=== PATIENT | male | born 1965 | race Caucasian/White ===

== ENCOUNTER 2018-05-08 06:29 | Inpatient (IN) ==
--- NOTE | 2018-05-08 06:31 | Emergency Department Note ---
ED Disposition Clinical Impression: CAP (community acquired pneumonia) Qualifiers: Laterality: right Lung location: lower lobe of lung Qualified Code(s): J18.1 - Lobar pneumonia, unspecified organism Disposition: Admitted As Inpatient Condition on Discharge: Fair Referrals: Provider,Referral, [Primary Care Provider] - - Critical Care Critical Care Time: No Attestation: On , the high probability of a clinically significant, sudden or life threatening deterioration of the following system(s) required my full and direct attention, intervention and personal management. The time I documented below is in addition to time spent performing reported procedures but includes the following listed in this critical care notation. Medical Decision Making - Micheal Inquiry Pt receiving controlled substance: No Vital Signs: 05/08/18 06:29 05/08/18 06:30 05/08/18 06:47 Temperature 101.7 F H 101.7 F H Temperature Source Oral Oral Oral Pulse Rate Pulse Rate [Right Radial] 111 H 111 H Respiratory Rate 24 24 Blood Pressure [Right Arm] 130/61 130/61 Blood Pressure Mean [Right Arm] 84 84 Blood Pressure Source [Right Arm] Blood Pressure Position [Right Arm] 02 Sat by Pulse Oximetry 88 L 88 L Oxygen Delivery Method Room Air Room Air Oxygen Flow Rate (LPM) 05/08/18 06:50 05/08/18 07:14 05/08/18 07:28 Temperature Temperature Source Pulse Rate 103 H Pulse Rate [Right Radial] 106 H Respiratory Rate 26 H 22 Blood Pressure [Right Arm] 104/73 L Blood Pressure Mean [Right Arm] 83 Blood Pressure Source [Right Arm] Blood Pressure Position [Right Arm] 02 Sat by Pulse Oximetry 92 L 92 L 93 L Oxygen Delivery Method Nasal Cannula Nasal Cannula Oxygen Flow Rate (LPM) 2 2 05/08/18 07:34 Temperature Temperature Source Pulse Rate Pulse Rate [Right Radial] 107 H Respiratory Rate 26 H Blood Pressure [Right Arm] 111/61 Blood Pressure Mean [Right Arm] 77 Blood Pressure Source [Right Arm] Automatic Cuff Blood Pressure Position [Right Arm] Sitting 02 Sat by Pulse Oximetry 91 L Oxygen Delivery Method Nasal Cannula Oxygen Flow Rate (LPM) - Lab Data Lab Results 05/08/18 06:35: WBC 14.1 H, RBC 4.41 L, Hgb 14.3, Hct 42.1, MCV 95.4 H, MCH 32.3 H, MCHC 33.9, RDW 13.0, Plt Count 272, MPV 7.4, Neut % (Auto) 88.1 H, Lymph % (Auto) 5.9 L, [place] % (Auto) 5.7, Eos % (Auto) 0.1, Baso % (Auto) 0.2, Neut # (Auto) 12.4 H, Lymph # (Auto) 0.8, [place]iken # (Auto) 0.8, Eos # (Auto) 0.0, Baso # (Auto) 0.0 05/08/18 06:35: Sodium 131 L, Potassium 4.0, Chloride 96 L, Carbon Dioxide 26, Anion Gap 13.0, BUN 21 H, Creatinine 1.00, Estimated Creat Clear 108, Estimated GFR 78, Est GFR ( Amer) 94, Glucose 144 H, Calcium 8.7, Total Bilirubin 1.2 H, AST 14 L, ALT 20, Alkaline Phosphatase 84, Troponin I < 0.02, Total Protein 7.6, Albumin 3.3 L, Globulin 4.3 H, Albumin/Globulin Ratio 0.8 L 05/08/18 06:38: Influenza Type A Ag Negative, Influenza Type B Ag Negative Result diagrams: 05/08/18 06:35 05/08/18 06:35 Orders (Tests/Meds): ED MEDICATIONS Generic Name Dose Route Start Last Admin Trade Name Freq PRN Reason Stop Dose Admin Albuterol/Ipratropium 3 ml 05/08/18 10:00 Duoneb 3ml Neb IH 06/07/18 09:59 QIDRT PAZ Sodium Chloride 1,000 mls @ 999 mls/hr 05/08/18 06:45 05/08/18 06:38 Sod Chlor 0.9% 1000ml Bag IV 05/08/18 07:45 999 mls/hr .Q1H1M PAZ Administration Ceftriaxone Sodium 1 gm/ 50 mls @ 100 mls/hr 05/08/18 07:00 05/08/18 06:51 Sodium Chloride IV 05/22/18 06:59 100 mls/hr Q24H PAZ Administration Protocol Azithromycin 500 mg/ Sodium 250 mls @ 250 mls/hr 05/08/18 07:00 05/08/18 06:52 Chloride IV 05/22/18 06:59 250 mls/hr Q24H PAZ Administration Protocol Methylprednisolone Sodium Succinate 80 mg 05/08/18 07:00 Solu-Medrol 125mg/2ml Vial IV 06/07/18 06:59 Q8H APZ Sodium Chloride 10 ml 05/08/18 06:33 Saline Flush 10ml Syringe IV 06/07/18 06:32 NEEDED PRN Maintain IV Site Sodium Chloride 3 ml 05/08/18 06:35 Sodium Chloride 3% 15ml Neb IH 06/07/18 06:34 ONCE PRN INDUCE SPUTUM COLLECTION Discontinued Medications Generic Name Dose Route Start Last Admin Trade Name Freq PRN Reason Stop Dose Admin Acetaminophen 1,000 mg 05/08/18 06:34 05/08/18 06:38 Tylenol 500mg Tablet PO 05/08/18 06:35 1,000 mg ONCE ONE Administration Ketorolac Tromethamine 30 mg 05/08/18 07:29 Toradol 30mg/Ml Vial IV 05/08/18 07:30 ONCE ONE ORDERS Category Date Time Status Complete Blood Count Auto Diff Stat Lab 05/08/18 06:35 Results Lactic Acid Stat Lab 05/08/18 06:35 Received Blood Culture Stat Micro 05/08/18 06:35 Received Sputum Culture & Gram Stain Stat Micro 05/08/18 06:35 Ordered - Radiology Data #1 Image(s): Chest Image Reviewed: Yes I reviewed the patient's radiology image, Yes I have reviewed radiologist's interpretation RLL pneumonia - ECG Data Tracing #1 EKG interpreted by Jace Montero MD: Rhythm: sinus tachycardia Rate: 111 [place]: normal Ectopy: none Conduction: normal ST Segment Changes: none T Wave Changes: none Q Waves: none No evidence of acute ischemia or injury - Physician Consults Physician Consulted: Monica Marte Time: 07:37 Reason -: Admission Comment/Response: Agrees to admit the patient to the hospital. We discussed the patient's clinical information, including history, exam, laboratory and radiolo gy results and ED course. Per hospital procedure, I will write temporary bridge inpatient orders on the patient. Specific orders requested by the admitting physician: Continue current treatment General Adult HPI - General Stated complaint: chest pain Time Seen by Provider: 05/08/18 06:35 - History of Present Illness HPI narrative: Brought in by ambulance. Sick for 3 days. Nonproductive cough, rhinorrhea, subjective fever, chest pain, shortness of breath. Has COPD. Quit smoking 1 year ago. Has had pneumonia in the past. Did not have a flu shot this year to his knowledge. States his chest pain is under his ribs bilaterally. Primary care provider is Dr. Marte. - Related Data Home Medications Medication Instructions Recorded Confirmed No Known Home Medications 05/08/18 05/08/18 Allergies Allergy/AdvReac Type Severity Reaction Status Date / Time No Known Allergies Allergy Verified 05/08/18 06:33 [facility] History - Hepatitis A Screen Attestation statement:: This patient has been screened for Hepatitis A risk factors. I have reviewed the patient's past medical history: Yes - Social History Smoking Status: Current every day smoker Tobacco Type: cigarettes Alcohol Intake: never ROS Obtained: Yes All systems reviewed & no additional complaints - Constitutional Constitutional: Reports fever(s) - ENT Ears, Nose, Mouth, and Throat: Reports nasal discharge, Denies sore throat - Cardiovascular Cardiovascular: Reports chest pain Physical Exam - General General appearance: alert Comment: Ill appearing. Very frequent hacking cough. - Head Head exam: atraumatic, normocephalic - Eye Eye exam: Present: normal appearance, PERRL, EOMI - ENT ENT exam: Present: mucous membranes dry - Neck Neck exam: Present: normal inspection, trachea midline. Absent: lymphadenopathy - Chest Chest inspection: Present: normal inspection, symmetric chest wall rise - Respiratory Respiratory exam: Present: other (Rhonchi) - Cardiovascular Cardiovascular exam: Present: normal rhythm, tachycardia, normal heart sounds - Abdominal Exam Abdominal exam: Present: soft. Absent: distention, tenderness - Extremities Exam Extremities exam: Present: normal inspection - Neurological Exam Neurological exam: Present: alert, oriented X3 - Psychiatric Psychiatric exam: Present: normal affect, normal mood - Skin Skin exam: Present: warm, dry
[2018-05-08 07:08] LABS: Basophils % 0.2 % (0.1-2.0); Eosinophils % 0.1 % (0.1-12.0); Hematocrit 42.1 % (42.0-52.0); Hemoglobin 14.3 g/dL (14.1-18.0); Lymphocytes # 0.8 K/mm3 (0.7-4.5); Lymphocytes % 5.9 % (10-50); Mean Corpuscular HGB Conc 33.9 g/dL (31.8-35.4); Mean Corpuscular Hemoglobin 32.3 pg (27.0-31.2); Mean Corpuscular Volume 95.4 fl (80-94); Mean Platelet Volume 7.4 fl (7.4-10.4); Monocytes # 0.8 K/mm3 (0.1-1.0); Monocytes % 5.7 % (1.7-9.3); Neutrophils # 12.4 K/mm3 (1.8-7.8); Neutrophils % 88.1 % (37.0-80.0); Platelet Count 272 K/mm3 (142-424); Red Blood Count 4.41 M/mm3 (4.60-6.20); White Blood Count 14.1 K/mm3 (4.8-10.8)
[2018-05-08 07:16] LABS: Alanine Aminotransferase 20 U/L (12-78); Albumin Level 3.3 gm/dL (3.4-5.0); Albumin/Globulin Ratio 0.8 (1.1-1.8); Alkaline Phosphatase 84 U/L (46-116); Aspartate Amino Transferase 14 U/L (15-37); Bilirubin,Total 1.2 mg/dL (0.2-1.0); Blood Urea Nitrogen 21 mg/dL (7-18); Calcium 8.7 mg/dL (8.5-10.1); Carbon Dioxide 26 mmol/L (21.0-32.0); Chloride 96 mmol/L (98-107); Globulin 4.3 gm/dl (1.3-3.2); Glucose 144 mg/dL (74-106); Sodium 131 mmol/L (136-145); Total Protein,Serum 7.6 gm/dL (6.4-8.2)
[2018-05-08 07:42] LABS: Lymphocytes % 6 % (10-50); Monocytes % 2 % (2-9); Neutrophils % 89 % (42-76); Total Cells Counted 100
--- NOTE | 2018-05-08 08:27 | Pharmacy Consult Notes ---
[facility] Pharmacy VTE Monitoring - Patient Demographics Admission date: 05/08/18 Report Date: 05/08/18 Allergies/Adverse Reactions: Patient Allergies No Known Allergies Allergy (Verified 05/08/18 06:33) Height: 1.85 m Weight: 90.718 kg Patient Problems: Current Active Problems CAP (community acquired pneumonia) (Acute) - VTE Risk Labs: VTE Related Lab Results Hgb 14.3 g/dL (14.1-18.0) 05/08/18 06:35 Hct 42.1 % (42.0-52.0) 05/08/18 06:35 Plt Count 272 K/mm3 (142-424) 05/08/18 06:35 BUN 21 mg/dL (7-18) H 05/08/18 06:35 Creatinine 1.00 mg/dL (0.70-1.30) 05/08/18 06:35 Estimated Creat Clear 108 mL/min (50-200) 05/08/18 06:35 - Prophylaxis VTE Prophylaxis Ordered?: Yes Types of VTE Prophylaxis: TEDS Knee High Location of Applied Device: Bilateral Lower Extremeties - VTE Diagnosis Confirmed Treatment or plan recommended: Continue Current Treatment
--- NOTE | 2018-05-08 12:58 | History & Physical Report ---
*Admission Date: 05/08/18 <Karly Linares 05/08/18 13:01> *Chief complaint: shortness of breath, fever, cough <Karly Linares 05/08/18 13:01> *History of present illness: Mr. Rosario is a 52yo male with a history of only COPD and tobacco use. He states approximately 3 days ago he began getting short of breath and wheezing. He states he is felt extremely weak and has been running a fever. The ambulance brought him to the emergency room today where he was found to have a right lower lobe pneumonia. He was admitted and started on IV antibiotics, nebs, and steroids. <Karly Linares 05/08/18 13:01> [facility] History Medical History: Reports:: Chronic Obstructive Pulmonary Disease (COPD) Denies:: Cancer, Diabetes Mellitus Type 1, Diabetes Mellitus Type 2, MRSA <Karly Linares 05/08/18 13:01> *Have you ever received a pneumonia vaccine?: No <Karly Linares 05/08/18 13:01> *Have you received a flu vaccine this season?: No <Karly Linares 05/08/18 13:01> Laterality Cases: Left: Arthroscopy Knee <Karly Linares 05/08/18 13:01> Amputation: No <Karly Linares 05/08/18 13:01> - *Social History Educational Level: Attended College <Karly Linares 05/08/18 13:01> Smoking Status: Former smoker <Karly Linares 05/08/18 13:01> Tobacco Type: cigarettes <Karly Linares 05/08/18 13:01> Alcohol Intake: never <Karly Linares 05/08/18 13:01> Alcohol Intake Frequency:: a few times a week <Karly Linares 05/08/18 13:01> *Occupational Status:: disabled <Karly Linares 05/08/18 13:01> Housing: other <Karly Linares 05/08/18 13:01> Household Members: spouse <Karly Linares 05/08/18 13:01> *Travel in the last 8 weeks: None <Karly Linares 05/08/18 13:01> - Psychiatric History Expresses thoughts of harming self/others: None <Karly Linares 05/08/18 13:01> Suicide Plan Description: No Plan <Karly Linares 05/08/18 13:01> Family Hx:: No significant family history, Other (COPD) <Karly Linares 05/08/18 13:01> Review of Systems - Constitutional Reports body ache(s), Reports chills, Reports fatigue, Reports fever(s), Reports weakness <Karly Linares 05/08/18 13:01> - Eyes Denies blurry vision, Denies double vision <Karly Linares 05/08/18 13:01> - ENT Reports nasal congestion, Denies sore throat <Karly Linares 05/08/18 13:01> - *Cardiovascular Reports chest pain, Reports shortness of breath <Karly Linares 05/08/18 13:01> - *Respiratory Reports chest congestion, Reports cough, Reports shortness of breath, Reports wheezing <Karly Linares 05/08/18 13:01> - *Gastrointestinal Denies abdominal pain, Denies loose stools, Denies nausea, Denies vomiting [facility]> - *Genitourinary Denies difficulty urinating, Denies painful urination <Karly Linares 13:01> - *Musculoskeletal Denies joint pain <Karly Linares 05/08/18 13:01> - *Neurologic Reports headache(s), Reports dizziness, Reports weakness <Karly Linares 05/08/18 13:01> Meds Home Medications Medication Instructions Recorded Confirmed Type Albuterol Sulfate [Albuterol HFA 1 - 2 puffs IH Q4-6H PRN 05/08/18 05/08/18 History Inhaler] <Toni Marte - 05/08/18 17:45> Allergies Allergy/AdvReac Type Severity Reaction Status Date / Time No Known Allergies Allergy Verified 05/08/18 06:33 <Toni Marte - 05/08/18 17:45> Exam Vital signs and Labs for Last 24 Hours: Temp Pulse Resp BP Pulse Ox 98.0 F 87 20 116/67 94 L 03/21/19 15:49 05/08/18 15:49 05/08/18 15:49 05/08/18 15:49 05/08/18 15:49 Laboratory Results - last 24 hr 05/08/18 06:35: WBC 14.1 H, RBC 4.41 L, Hgb 14.3, Hct 42.1, MCV 95.4 H, MCH 32.3 H, MCHC 33.9, RDW 13.0, Plt Count 272, MPV 7.4, Neut % (Auto) 88.1 H, Lymph % (Auto) 5.9 L, Baker % (Auto) 5.7, Eos % (Auto) 0.1, Baso % (Auto) 0.2, Neut # (Auto) 12.4 H, Lymph # (Auto) 0.8, Baker # (Auto) 0.8, Eos # (Auto) 0.0, Baso # (Auto) 0.0, Total Counted 100, Neutrophils % (Manual) 89 H, Band Neutrophils % 3.0, Lymphocytes % (Manual) 6 L, Monocytes % (Manual) 2, Platelet Estimate Normal 05/08/18 06:35: Sodium 131 L, Potassium 4.0, Chloride 96 L, Carbon Dioxide 26, Anion Gap 13.0, BUN 21 H, Creatinine 1.00, Estimated Creat Clear 108, Estimated GFR 78, Est GFR ( Amer) 94, Glucose 144 H, Calcium 8.7, Total Bilirubin 1.2 H, AST 14 L, ALT 20, Alkaline Phosphatase 84, Troponin I < 0.02, Total Protein 7.6, Albumin 3.3 L, Globulin 4.3 H, Albumin/Globulin Ratio 0.8 L 05/08/18 06:35: Lactate 0.8 05/08/18 06:38: Influenza Type A Ag Negative, Influenza Type B Ag Negative <Toni Marte - 05/08/18 17:45> Temp Pulse Resp BP Pulse Ox 98.2 F 92 H 20 110/53 L 95 05/08/18 12:00 05/08/18 12:00 05/08/18 12:00 05/08/18 12:00 05/08/18 12:00 Laboratory Results - last 24 hr 05/08/18 06:35: WBC 14.1 H, RBC 4.41 L, Hgb 14.3, Hct 42.1, MCV 95.4 H, MCH 32.3 H, MCHC 33.9, RDW 13.0, Plt Count 272, MPV 7.4, Neut % (Auto) 88.1 H, Lymph % (Auto) 5.9 L, Baker % (Auto) 5.7, Eos % (Auto) 0.1, Baso % (Auto) 0.2, Neut # (Auto) 12.4 H, Lymph # (Auto) 0.8, Baker # (Auto) 0.8, Eos # (Auto) 0.0, Baso # (Auto) 0.0, Total Counted 100, Neutrophils % (Manual) 89 H, Band Neutrophils % 3.0, Lymphocytes % (Manual) 6 L, Monocytes % (Manual) 2, Platelet Estimate Normal 05/08/18 06:35: Sodium 131 L, Potassium 4.0, Chloride 96 L, Carbon Dioxide 26, Anion Gap 13.0, BUN 21 H, Creatinine 1.00, Estimated Creat Clear 108, Estimated GFR 78, Est GFR ( Amer) 94, Glucose 144 H, Calcium 8.7, Total Bilirubin 1.2 H, AST 14 L, ALT 20, Alkaline Phosphatase 84, Troponin I < 0.02, Total Protein 7.6, Albumin 3.3 L, Globulin 4.3 H, Albumin/Globulin Ratio 0.8 L 05/08/18 06:35: Lactate 0.8 05/08/18 06:38: Influenza Type A Ag Negative, Influenza Type B Ag Negative <Karly Linares - 05/08/18 13:01> I & O for Last 24 hours: Intake & Output 05/06/18 05/07/18 05/08/18 05/09/18 11:59 11:59 11:59 11:59 Intake Total 855 / 855 Balance 855 / 855 Weight 200 lb 9 oz <Toni Marte - 05/08/18 17:45> Intake & Output 05/06/18 05/07/18 05/08/18 05/09/18 11:59 11:59 11:59 11:59 Weight 200 lb 9 oz <Karly Linares - 05/08/18 13:01> - Constitutional Comments: Does not appear to feel well <Karly Linares 05/08/18 13:01> - *Routine HEENT Exam Head: Present: normocephalic <Karly Linares 05/08/18 13:01> Eye: Present: EOMI, PERRL <Karly Linares 05/08/18 13:01> ENT: Present: mucous membranes dry <Karly Linares 05/08/18 13:01> - *Routine Neck Exam Present: supple. Absent: lymphadenopathy <Karly Linares 05/08/18 13:01> - *Routine Respiratory Exam Present: rhonchi, wheezes, crackles (faint in the right base) <Karly Linares 05/08/18 13:01> - *Routine Cardiovascular Exam Present: RRR <Karly Linares 05/08/18 13:01> - *Routine Abdominal Exam Present: soft, normoactive bowel sounds. Absent: tenderness <Karly Linares 05/08/18 13:01> - *Routine Extremities Exam Absent: cyanosis, clubbing, edema <Karly Linares 05/08/18 13:01> - *Routine Skin Exam Present: warm. Absent: rash <Karly Linares 05/08/18 13:01> - *Routine Neurological Exam Present: alert, oriented X3 <Karly Linares 05/08/18 13:01> H&P: Result - Impressions CXR - Right lower lobe pneumonia. <Karly Linares 05/08/18 13:01> Assessment and Plan (1) CAP (community acquired pneumonia) Current visit: Yes Status: Acute Qualifiers: Laterality: right Lung location: lower lobe of lung Qualified Code(s): J18.1 - Lobar pneumonia, unspecified organism Category: Medical Code(s): J18.9 - Pneumonia, unspecified organism (2) COPD (chronic obstructive pulmonary disease) Current visit: Yes Status: Chronic Category: Medical Code(s): J44.9 - Chronic obstructive pulmonary disease, unspecified <Karly Linares 05/08/18 12:55> (1) CAP (community acquired pneumonia) Current visit: Yes Status: Acute Qualifiers: Laterality: right Lung location: lower lobe of lung Qualified Code(s): J18.1 - Lobar pneumonia, unspecified organism Category: Medical Code(s): J18.9 - Pneumonia, unspecified organism (2) COPD (chronic obstructive pulmonary disease) Current visit: Yes Status: Chronic Category: Medical Code(s): J44.9 - Chronic obstructive pulmonary disease, unspecified <Toni Marte - 05/08/18 17:45> - Assessment and plan all Dx Assessment and Plan for all problems:: Patient seen and examined. Concur with assessmant and plan as outlined above. <Toni Marte - 05/08/18 17:45> Will continue abx, nebs, and steroids. Will await sputum cx results. <Karly Linares - 05/08/18 13:01>
--- NOTE | 2018-05-09 08:35 | Progress Note ---
<Karly Linares - Last Filed: 05/09/18 08:31> Internal Medicine - PN: Subj *Date: 05/09/18 *Time: 08:32 Interval history: Patient states he is feeling a little bit better today. He has less shortness of breath and less wheezing. He is still coughing but is unable to cough up any sputum. He states his chest pain has improved and he was able to sleep and tolerated diet. Exam Vital signs and Labs for Last 24 Hours: Temp Pulse Resp BP Pulse Ox 97.5 F L 84 20 105/62 L 96 05/09/18 04:00 05/09/18 06:39 05/09/18 04:00 05/09/18 04:00 05/09/18 07:32 I & O for Last 24 hours: Intake & Output 05/06/18 05/07/18 05/08/18 05/09/18 11:59 11:59 11:59 11:59 Intake Total 885 / 885 Balance 885 / 885 Weight 200 lb 9 oz - Constitutional no acute distress - *Routine Respiratory Exam Present: rhonchi, wheezes - *Routine Cardiovascular Exam Present: RRR - *Routine Abdominal Exam Present: soft, normoactive bowel sounds. Absent: tenderness - *Routine Extremities Exam Absent: cyanosis, clubbing, edema Assessment and Plan (1) CAP (community acquired pneumonia) Current visit: Yes Status: Acute Qualifiers: Laterality: right Lung location: lower lobe of lung Qualified Code(s): J18.1 - Lobar pneumonia, unspecified organism Category: Medical Code(s): J18.9 - Pneumonia, unspecified organism (2) COPD (chronic obstructive pulmonary disease) Current visit: Yes Status: Chronic Category: Medical Code(s): J44.9 - Chronic obstructive pulmonary disease, unspecified (3) Hyponatremia Current visit: Yes Status: Acute Category: Medical Code(s): E87.1 - Hypo- osmolality and hyponatremia (4) Hyperbilirubinemia Current visit: Yes Status: Acute Category: Medical Code(s): E80.6 - Other disorders of bilirubin metabolism - Assessment and plan all Dx Assessment and Plan for all problems:: Patient symptoms are improving. Will continue antibiotics. Will recheck labs this morning. <Toni Marte - Last Filed: 05/09/18 09:19> Exam Vital signs and Labs for Last 24 Hours: Temp Pulse Resp BP Pulse Ox 97.7 F 98 H 18 128/72 90 L 05/09/18 08:00 05/09/18 08:00 05/09/18 08:00 05/09/18 08:00 05/09/18 08:00 I & O for Last 24 hours: Intake & Output 05/06/18 05/07/18 05/08/18 05/09/18 11:59 11:59 11:59 11:59 Intake Total 1365 / 1365 Balance 1365 / 1365 Weight 200 lb 9 oz Assessment and Plan (1) CAP (community acquired pneumonia) Current visit: Yes Status: Acute Qualifiers: Laterality: right Lung location: lower lobe of lung Qualified Code(s): J18.1 - Lobar pneumonia, unspecified organism Category: Medical Code(s): J18.9 - Pneumonia, unspecified organism (2) COPD (chronic obstructive pulmonary disease) Current visit: Yes Status: Chronic Category: Medical Code(s): J44.9 - Chronic obstructive pulmonary disease, unspecified (3) Hyponatremia Current visit: Yes Status: Acute Category: Medical Code(s): E87.1 - Hypo- osmolality and hyponatremia (4) Hyperbilirubinemia Current visit: Yes Status: Acute Category: Medical Code(s): E80.6 - Other disorders of bilirubin metabolism - Assessment and plan all Dx Assessment and Plan for all problems:: Patient seen and examined. Concur with assessment and plan.
[2018-05-09 09:32] LABS: Albumin Level 2.6 gm/dL (3.4-5.0); Albumin/Globulin Ratio 0.6 (1.1-1.8); Basophils % 0.1 % (0.1-2.0); Bilirubin,Total 0.3 mg/dL (0.2-1.0); Calcium 8.6 mg/dL (8.5-10.1); Globulin 4.3 gm/dl (1.3-3.2); Hematocrit 38.8 % (42.0-52.0); Hemoglobin 12.5 g/dL (14.1-18.0); Lymphocytes # 0.5 K/mm3 (0.7-4.5); Lymphocytes % 2.9 % (10-50); Mean Corpuscular HGB Conc 32.3 g/dL (31.8-35.4); Mean Corpuscular Hemoglobin 31.3 pg (27.0-31.2); Mean Corpuscular Volume 96.9 fl (80-94); Mean Platelet Volume 7.7 fl (7.4-10.4); Monocytes # 0.4 K/mm3 (0.1-1.0); Monocytes % 2.2 % (1.7-9.3); Neutrophils # 15.1 K/mm3 (1.8-7.8); Neutrophils % 94.8 % (37.0-80.0); Platelet Count 253 K/mm3 (142-424); Red Blood Count 4.01 M/mm3 (4.60-6.20); Red Cell Distribution Width 12.7 % (11.5-17.5); Total Protein,Serum 6.9 gm/dL (6.4-8.2); White Blood Count 15.9 K/mm3 (4.8-10.8)
[2018-05-09 10:55] LABS: Lymphocytes % 2 % (10-50); Neutrophils % 79 % (42-76); RBC Morphology Normal; Total Cells Counted 100
--- NOTE | 2018-05-10 08:57 | Progress Note ---
Internal Medicine - PN: Subj Interval history: He rested well last night. Shortness of breath is much improved. He still has a productive cough. He has been tolerating activity in the room. 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 Exam Vital signs and Labs for Last 24 Hours: Temp Pulse Resp BP Pulse Ox 97.8 F 109 H 18 135/67 90 L 05/10/18 07:53 05/10/18 07:53 05/10/18 07:53 05/10/18 07:53 05/10/18 07:53 Laboratory Results - last 24 hr 05/09/18 09:00: WBC 15.9 H, RBC 4.01 L, Hgb 12.5 L, Hct 38.8 L, MCV 96.9 H, MCH 31.3 H, MCHC 32.3, RDW 12.7, Plt Count 253, MPV 7.7, Neut % (Auto) 94.8 H, Lymph % (Auto) 2.9 L, [place] % (Auto) 2.2, Eos % (Auto) 0.0 L, Baso % (Auto) 0.1, Neut # (Auto) 15.1 H, Lymph # (Auto) 0.5 L, [place] # (Auto) 0.4, Eos # (Auto) 0.0, Baso # (Auto) 0.0, Total Counted 100, Neutrophils % (Manual) 79 H, Band Neutrophils % 19.0 H, Lymphocytes % (Manual) 2 L, Platelet Estimate Normal, RBC Morphology Normal 05/09/18 09:00: Sodium 139, Potassium 4.0, Chloride 105, Carbon Dioxide 25, Anion Gap 13.0, BUN 20 H, Creatinine 0.84, Estimated Creat Clear 129, Estimated GFR 95, Est GFR ( Amer) 115 D, Glucose 300 H, Calcium 8.6, Total Bilirubin 0.3, AST 10 L D, ALT 20, Alkaline Phosphatase 85, Total Protein 6.9, Albumin 2.6 L D, Globulin 4.3 H, Albumin/Globulin Ratio 0.6 L I & O for Last 24 hours: Intake & Output 05/07/18 05/08/18 05/09/18 05/10/18 11:59 11:59 11:59 11:59 Intake Total 1365 / 1365 1080 / 1080 Output Total 200 / 200 Balance 1365 / 1365 880 / 880 Weight 200 lb 9 oz Microbiology Reports for the Last 24 Hours: Microbiology 05/09/18 20:00 Sputum - Expectorated Sputum Gram Stain - Final 05/09/18 20:00 Sputum - Expectorated Sputum Sputum Culture - Preliminary 05/08/18 06:35 Blood Blood Culture - Preliminary NO GROWTH AFTER 48 HOURS 05/08/18 06:35 Blood Blood Culture - Preliminary NO GROWTH AFTER 48 HOURS Narrative: He appears in no distress. There is some coarse rales in the right lung. No wheezes. Heart is regular with no murmurs. Extremities no edema. Assessment and Plan (1) CAP (community acquired pneumonia) Current visit: Yes Status: Acute Qualifiers: Laterality: right Lung location: lower lobe of lung Qualified Code(s): J18.1 - Lobar pneumonia, unspecified organism Category: Medical Code(s): J18.9 - Pneumonia, unspecified organism (2) COPD (chronic obstructive pulmonary disease) Current visit: Yes Status: Chronic Category: Medical Code(s): J44.9 - Chronic obstructive pulmonary disease, unspecified (3) Hyponatremia Current visit: Yes Status: Acute Category: Medical Code(s): E87.1 - Hypo- osmolality and hyponatremia - Assessment and plan all Dx Assessment and Plan for all problems:: He is insistent on going home as 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 Clinically he is much improved but I have advised that he still needs to take it easy for a few days. He will be discharged home on oral antibiotics and steroids. He will follow-up in office in 3 days for recheck.
--- NOTE | 2018-05-12 11:27 | Discharge Summary ---
General - General Admission date:: 05/08/18 Discharge date: 05/10/18 HPI HPI: Mr. Rosario is a 52yo male with a history of only COPD and tobacco use. He states approximately 3 days ago he began getting short of breath and wheezing. He states he has felt extremely weak and has been running a fever. The ambulance brought him to the emergency room today where he was found to have a right lower lobe pneumonia. He was admitted and started on IV antibiotics, nebs, and steroids. Hospital Course Hospital Course: The patient's chest x-ray showed a right lower lobe pneumonia. He was started on antibiotics, nebs, and steroids. His symptoms did improve and he began feeling less short of breath. He had less wheezing as well. His chest pain improved and he was able to sleep and tolerated a diet. 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 His white blood cell count did elevate but this was felt to be due to steroids. His electrolytes improved. Clinically, he was much improved and Dr. Marte advised that he needed to take it easy for a few days. He was stable to be discharged home on oral antibiotics and steroids and will follow-up in the office of [facility] in 3 days for a recheck. Of note, his sputum showed normal respiratory amber. Objective Vital signs: Temp Pulse Resp BP Pulse Ox 97.8 F 109 H 18 135/67 90 L 05/10/18 07:53 05/10/18 07:53 05/10/18 07:53 05/10/18 07:53 05/10/18 07:53 Narrative: - Constitutional Comments: Does not appear to feel well - *Routine HEENT Exam Head: Present: normocephalic Eye: Present: EOMI, PERRL ENT: Present: mucous membranes dry - *Routine Neck Exam Present: supple. Absent: lymphadenopathy - *Routine Respiratory Exam Present: rhonchi, wheezes, crackles (faint in the right base) - *Routine Cardiovascular Exam Present: RRR - *Routine Abdominal Exam Present: soft, normoactive bowel sounds. Absent: tenderness - *Routine Extremities Exam Absent: cyanosis, clubbing, edema - *Routine Skin Exam Present: warm. Absent: rash - *Routine Neurological Exam Present: alert, oriented X3 Results Labs on day of discharge: Preliminary micro results at discharge 05/08/18 06:35 Blood Culture - Preliminary Blood NO GROWTH AFTER 48 HOURS 05/08/18 06:35 Blood Culture - Preliminary Blood NO GROWTH AFTER 48 HOURS DS: Diagnosis - Discharge Diagnosis (1) CAP (community acquired pneumonia) Status: Acute (2) COPD (chronic obstructive pulmonary disease) Status: Chronic (3) Hyponatremia Status: Acute Discharge Plan - Patient Discharge Instructions ACTIVITY: Limited activity DIET: continue same diet Patient Instructions: DI for Chronic Obstructive Pulmonary Disease, DI for Pneumonia -- Adult - Follow up Plan Follow up with: Toni Marte MD [Staff Physician] - 05/13/18 Disposition: Home, Self-Jail Medications: Home Medications Medication Instructions Recorded Confirmed Type Albuterol Sulfate [Albuterol HFA 1 - 2 puffs IH Q4-6H PRN #1 05/10/18 Rx Inhaler] hfa.aer.ad Azithromycin [Zithromax 500mg Tab] 500 mg PO DAILY #3 tab 05/10/18 Rx Sildenafil Citrate [Sildenafil] 20 mg PO DIRECTED #20 tab 05/10/18 Rx cefUROXime axetil [Ceftin 500mg 500 mg PO BID #14 tab 05/10/18 Rx Tab (GEQ)] predniSONE [Prednisone 5mg Tab 5 mg PO UD DOSE PK #1 pack 05/10/18 Rx Dose-Pack] Prescriptions/Medication Reconciliation: New Azithromycin [Zithromax 500mg Tab] 500 mg PO DAILY #3 tab cefUROXime axetil [Ceftin 500mg Tab (GEQ)] 500 mg PO BID #14 tab Sildenafil Citrate [Sildenafil] 20 mg PO DIRECTED #20 tab predniSONE [Prednisone 5mg Tab Dose-Pack] 5 mg PO UD DOSE PK #1 pack Continue Albuterol Sulfate [Albuterol HFA Inhaler] 1 - 2 puffs IH Q4-6H PRN #1 hfa.aer.ad PRN Reason: Shortness Of Breath Or Wheezing
== END 2018-05-10 10:15 | disposition home or self-care (01) | DRG 194 ==
LOC: ER 06:29 → 2ND 07:42
PROVIDERS: ADMIT Family Medicine; ATTEND Family Medicine
CPT/HCPCS: 36415; 71010; 71045; 80053; 83605; 84484; 85007; 85025; 87040; 87070; 87205; 87275; 87276; 93005; 94640; 94761; 96365; 96367; 96375; 99285; J0456

== ENCOUNTER → 2019-03-17 08:18 | Outpatient (CLI) | payer OTHER, SELFPAY ==
[2019-03-17 08:48] LABS: Hemoglobin A1C 5.5 % (0.0-7.0)
[2019-03-17 11:49] LABS: Alanine Aminotransferase 431 U/L (12-78); Albumin Level 3.5 gm/dL (3.4-5.0); Alkaline Phosphatase 108 U/L (46-116); Anion Gap 13.7 mEq/L (5-15); Aspartate Amino Transferase 136 U/L (15-37); Bilirubin,Total 0.6 mg/dL (0.2-1.0); Blood Urea Nitrogen 21 mg/dL (7-18); Calcium 8.4 mg/dL (8.5-10.1); Carbon Dioxide 28 mmol/L (21.0-32.0); Chloride 106 mmol/L (98-107); Chol/HDL Ratio 2.1 (1-3.5); Cholesterol 149 mg/dL (140-200); Creatinine,Serum 0.94 mg/dL (0.70-1.30); Estimated Glomerular Filt Rate 83 ml/min (>60); GFR (African American) 101 ML/MIN (>60); Globulin 3.4 gm/dl (1.3-3.2); Glucose 99 mg/dL (74-106); HDL Cholesterol 70 mg/dL (27-67); LDL Cholesterol 71 mg/dL (0-130); Potassium 4.7 mmoL/L (3.5-5.1); Prostate Specific Ag Screen 0.6 ng/mL (0.0-4.0); Sodium 143 mmol/L (136-145); Total Protein,Serum 6.9 gm/dL (6.4-8.2); Triglycerides 38 mg/dL (30-200); VLDL Cholesterol 8 mg/dL (0-40)
== END ==
PROVIDERS: Visit Provider Family Medicine
DX: R35.8 Other polyuria (principal); Z12.5 Encounter for screening for malignant neoplasm of prostate
CPT/HCPCS: 36415; 80053; 80061; 83036; G0103

== ENCOUNTER → 2019-03-27 07:38 | Outpatient (CLI) | payer OTHER, SELFPAY ==
--- NOTE | 2019-03-27 07:58 | US_ITS ---
PROCEDURE: US ABDOMEN LIMITED CLINICAL INDICATION: ELEVATED LIVER ENZYMES COMPARISON: CTAC CTA-CHEST from 12/30/2016 FINDINGS: PANCREAS: Pancreas is not demonstrated due to overlying bowel gas. LIVER: No focal liver lesions demonstrated. Homogeneous echogenicity. No intrahepatic biliary ductal dilatation evident. There is appropriate direction of blood flow within a non dilated portal vein RIGHT KIDNEY: Unremarkable. Normal size and echogenicity. No hydronephrosis GALLBLADDER: There is adenomyomatosis of the gallbladder with scattered small foci of increased echogenicity with comet tail artifact. There is mild gallbladder wall thickening at 4 mm. No pericholecystic fluid. No shadowing stones. Common bile duct is normal at 4 mm. IMPRESSION: The adenomyomatosis of the gallbladder with mild gallbladder wall thickening. No shadowing stones apparent Pancreas is not well delineated and may be better evaluated with CT if clinically desired. Dictated by: Rodney Shaikh MD 03/27/2019 14:23 Electronically signed by Rodney Shaikh MD in [place] 03/27/2019 14:23
== END ==
PROVIDERS: PCP Family Medicine; Visit Provider Family Medicine
DX: R74.8 Abnormal levels of other serum enzymes (principal)
CPT/HCPCS: 76705

== ENCOUNTER → 2020-03-30 07:15 | Outpatient (CLI) | payer OTHER, SELFPAY ==
[2020-03-30 08:08] LABS: Chloride 102 mmol/L (98-107)
[2020-03-30 08:09] LABS: Potassium 4.4 mmoL/L (3.5-5.1); Sodium 140 mmol/L (136-145)
[2020-03-30 08:11] LABS: Alanine Aminotransferase 53 U/L (12-78); Albumin Level 4.4 g/dl (3.5-5.0); Albumin/Globulin Ratio 1.2 (1.1-1.8); Alkaline Phosphatase 104 U/L (38-126); Anion Gap 9.4 mEq/L (5-15); Aspartate Amino Transferase 36 U/L (17-59); Bilirubin,Total 0.6 mg/dl (0.2-1.3); Blood Urea Nitrogen 16 mg/dl (9-20); Carbon Dioxide 33 mmol/L (22.0-30.0); Estimated Glomerular Filt Rate 77 ml/min (>60); GFR (African American) 94 ML/MIN (>60); Globulin 3.7 g/dL (1.3-3.2); Total Protein,Serum 8.1 g/dl (6.3-8.2)
[2020-03-30 08:12] LABS: Calcium 9.8 mg/dl (8.4-10.2); Chol/HDL Ratio 2.2 (1-3.5); Cholesterol 148 mg/dl (140-200); Glucose 136 mg/dl (74-100); HDL Cholesterol 66 mg/dl (40-60); Triglycerides 123 mg/dl (30-150); VLDL Cholesterol 25 mg/dL (0-40)
[2020-03-30 08:23] LABS: Direct LDL Cholesterol 54.88 mg/dL (100-129)
[2020-03-30 09:01] LABS: Prostate Specific Ag Screen 0.4 ng/ml (0.0-4.0)
== END ==
PROVIDERS: Visit Provider Family Medicine
DX: R74.8 Abnormal levels of other serum enzymes (principal); Z12.5 Encounter for screening for malignant neoplasm of prostate
CPT/HCPCS: 36415; 80053; 80061; G0103

== ENCOUNTER → 2020-07-11 12:03 | Outpatient (CLI) | payer OTHER, SELFPAY ==
[2020-07-11 13:17] LABS: Adenovirus,PCR Not Detected (NotDetected); Bordetella Pertussis Not Detected (NotDetected); Chlamydophila Pneumoniae, PCR Not Detected (NotDetected); Coronavirus 19, PCR Not Detected (NotDetected); Coronavirus 229E Not Detected (NotDetected); Coronavirus NL63 Not Detected (NotDetected); Coronavirus OC43 Not Detected (NotDetected); Coronovirus HKU1,PCR Not Detected (NotDetected); Human Metapneumovirus Not Detected (NotDetected); Influenza A, PCR Not Detected (NotDetected); Influenza AH1, 2009 Not Detected (NotDetected); Influenza AH1, PCR Not Detected (NotDetected); Influenza AH3,PCR Not Detected (NotDetected); Influenza B, PCR Not Detected (NotDetected); Mycoplasma Pneumoniae, PCR Not Detected (NotDetected); Parainfluenza 1, PCR Not Detected (NotDetected); Parainfluenza 2, PCR Not Detected (NotDetected); Parainfluenza 3, PCR Not Detected (NotDetected); Parainfluenza 4, PCR Not Detected (NotDetected); Respiratory Syncytial Virus Not Detected (NotDetected)
[2020-07-11 13:30] LABS: Basophils % 0.5 % (0.1-2.0); Eosinophils # 0.2 K/mm3 (0.0-0.4); Eosinophils % 2.5 % (0.1-12.0); Hematocrit 45.3 % (42.0-52.0); Hemoglobin 15.4 g/dL (14.1-18.0); Lymphocytes # 1.1 K/mm3 (0.7-4.5); Lymphocytes % 15.5 % (10-50); Mean Corpuscular HGB Conc 34.1 g/dL (31.8-35.4); Mean Corpuscular Hemoglobin 32.2 pg (27.0-31.2); Mean Corpuscular Volume 94.6 fl (80-94); Mean Platelet Volume 7.7 fl (7.4-10.4); Monocytes # 0.4 K/mm3 (0.1-1.0); Monocytes % 5.7 % (1.7-9.3); Neutrophils # 5.3 K/mm3 (1.8-7.8); Neutrophils % 75.9 % (37.0-80.0); Platelet Count 275 K/mm3 (142-424); Red Blood Count 4.79 M/mm3 (4.60-6.20); Red Cell Distribution Width 12.9 % (11.5-17.5); White Blood Count 6.9 K/mm3 (4.8-10.8)
[2020-07-11 21:46] LABS: Rhinovirus/Enterovirus Detected (NotDetected)
--- NOTE | 2020-07-12 13:35 | PC.NURSE ---
RECEIVED URP RESULTS FOR PATIENT FROM [place] IN LAB. NOTIFIED ANJEL THAT RESULTS SHOULD BE CALLED TO PATIENT'S PCP SINCE TEST WAS OUTPATIENT.
--- NOTE | 2020-07-12 13:42 | PC.NURSE ---
NOTIFIED PATIENT'S PCP OFFICE OF URP RESULTS AT THIS TIME
== END ==
PROVIDERS: PCP Family Medicine; Visit Provider Nurse Practitioner Family
DX: Z20.822 Contact with and (suspected) exposure to COVID-19 (principal); B34.1 Enterovirus infection, unspecified
CPT/HCPCS: 36415; 85025; 87581; 87633; 87798

== ENCOUNTER → 2020-11-28 13:44 | Outpatient (CLI) | payer OTHER, SELFPAY ==
--- NOTE | 2020-11-28 13:49 | XR_ITS ---
PROCEDURE: XR CHEST PORTABLE CLINICAL HISTORY: COVID OUTPATIENT COMPARISON: CT CTAC CTA-CHEST from 12/30/2016 CR CXR1VP XR chest portable from 05/08/2018 CR XR CHEST 2V from 02/09/2019 CR XR RIBS LT MIN 3V W CXR1V from 02/10/2019 FINDINGS: The cardiomediastinal silhouette and pulmonary vascularity are within normal limits. The lungs are clear without infiltrates, suspicious nodules, or pleural effusions. No acute bony abnormalities. IMPRESSION: No acute findings. Dictated by: Rodney Shaikh MD 11/28/2020 15:03 Rodney Shaikh MD in [facility] 11/28/2020 15:03
[2020-11-28 14:06] LABS: Adenovirus,PCR Not Detected (NotDetected); Bordetella Pertussis Not Detected (NotDetected); Chlamydophila Pneumoniae, PCR Not Detected (NotDetected); Coronavirus 19, PCR Not Detected (NotDetected); Coronavirus 229E Not Detected (NotDetected); Coronavirus NL63 Not Detected (NotDetected); Coronavirus OC43 Not Detected (NotDetected); Coronovirus HKU1,PCR Not Detected (NotDetected); Human Metapneumovirus Not Detected (NotDetected); Influenza A, PCR Not Detected (NotDetected); Influenza AH1, 2009 Not Detected (NotDetected); Influenza AH1, PCR Not Detected (NotDetected); Influenza AH3,PCR Not Detected (NotDetected); Influenza B, PCR Not Detected (NotDetected); Mycoplasma Pneumoniae, PCR Not Detected (NotDetected); Parainfluenza 1, PCR Not Detected (NotDetected); Parainfluenza 2, PCR Not Detected (NotDetected); Parainfluenza 3, PCR Not Detected (NotDetected); Parainfluenza 4, PCR Not Detected (NotDetected); Respiratory Syncytial Virus Not Detected (NotDetected); Rhinovirus/Enterovirus Not Detected (NotDetected)
[2020-11-28 14:12] LABS: Basophils # 0.1 K/mm3 (0-0.2); Basophils % 1.1 % (0.1-2.0); Eosinophils # 0.2 K/mm3 (0.0-0.4); Eosinophils % 2.7 % (0.1-12.0); Hematocrit 50.6 % (42.0-52.0); Hemoglobin 16.4 g/dL (14.1-18.0); Lymphocytes # 1.4 K/mm3 (0.7-4.5); Lymphocytes % 19.6 % (10-50); Mean Corpuscular HGB Conc 32.5 g/dL (31.8-35.4); Mean Corpuscular Hemoglobin 32.5 pg (27.0-31.2); Mean Platelet Volume 7.9 fl (7.4-10.4); Monocytes # 0.6 K/mm3 (0.1-1.0); Monocytes % 8.1 % (1.7-9.3); Neutrophils # 4.7 K/mm3 (1.8-7.8); Neutrophils % 68.5 % (37.0-80.0); Platelet Count 353 K/mm3 (142-424); Red Blood Count 5.06 M/mm3 (4.60-6.20); Red Cell Distribution Width 13.1 % (11.5-17.5); White Blood Count 6.9 K/mm3 (4.8-10.8)
== END ==
PROVIDERS: PCP Nurse Practitioner Family; Visit Provider Nurse Practitioner Family
DX: Z20.822 Contact with and (suspected) exposure to COVID-19 (principal)
CPT/HCPCS: 36415; 71045; 85025; 87581; 87632; 87798; C9803; U0003; U0005

== ENCOUNTER → 2020-12-13 08:19 | Outpatient (CLI) | payer OTHER, SELFPAY ==
--- NOTE | 2020-12-13 08:23 | CT_ITS ---
PROCEDURE: CT CHEST WO CON CLINICAL INDICATION: SOB COMPARISON: CR XR CHEST PORTABLE from 11/28/2020 TECHNIQUE: Axial images obtained with sagittal and coronal reformats. All CT scans at the facility use one or more dose reduction, viz: automated exposure control, ma/kV adjustment per patient size (including targeted exams where dose is matched to indication, i.e. head), or iterative reconstruction technique. FINDINGS: HEART AND MEDIASTINAL STRUCTURES: Unremarkable. There is a calcified right suprahilar node. There is minimal coronary artery calcification of the LAD LUNGS AND PLEURAL SPACES: The lung blood are well expanded and appear clear of infiltrate. There is a small calcified granuloma anterior segment right upper lobe. BONY STRUCTURES: No acute bony abnormalities apparent. UPPER ABDOMEN: The stomach is distended with ingested food particles. ADDITIONAL FINDINGS: No other significant abnormalities. IMPRESSION: Evidence of old granulomatous disease, no other significant abnormality noted Dictated by: Dr. Gilberto Paez MD 12/13/2020 09:32 Dr. Gilberto Paez MD in [facility] 12/13/2020 09:32
== END ==
PROVIDERS: PCP Nurse Practitioner Family; Visit Provider Nurse Practitioner Family
DX: R06.02 Shortness of breath (principal)
CPT/HCPCS: 71250

== ENCOUNTER → 2021-01-23 13:03 | Outpatient (CLI) | payer OTHER, SELFPAY ==
--- NOTE | 2021-01-23 13:09 | XR_ITS ---
PROCEDURE: XR HIP RT 2-3V W/PELVIS CLINICAL INDICATION: BACK PAIN,HIP PAIN,PELVIC PAIN COMPARISON: No exams were available for comparison FINDINGS: There are mild osteoarthritic changes of the right hip. No fracture or dislocation. No lytic or blastic change. AP view of the pelvis also shows mild osteoarthritic change of the left hip. IMPRESSION: No acute findings. Dictated by: Rodney Shaikh MD 01/23/2021 14:29 Rodney Shaikh MD in [facility] 01/23/2021 14:29
--- NOTE | 2021-01-23 13:09 | XR_ITS ---
PROCEDURE: XR MULTIPLE SPINE 6+V CLINICAL INDICATION: BACK PAIN,HIP PAIN,PELVIC PAIN COMPARISON: CT CTAC CTA-CHEST from 12/30/2016 FINDINGS: Thoracic spine: No acute fracture or dislocation. Normal alignment. No lytic or blastic change. Lumbar spine: Mild wedging of L1 with mild kyphosis. Degenerative disc disease L2-L3 L3-L4 and L4-5. The wedging at L1 appears chronic compared to an older chest [facility] 12 17. Other findings:None. IMPRESSION: No acute finding. Degenerative changes of the lumbar spine with chronic mild wedging of L1 Dictated by: Rodney Shaikh MD 01/23/2021 14:25 Rodney Shaikh MD in [facility] 01/23/2021 14:25
== END ==
PROVIDERS: PCP Family Medicine; Visit Provider Nurse Practitioner Family
DX: M54.6 Pain in thoracic spine (principal); R10.2 Pelvic and perineal pain; M25.551 Pain in right hip; M54.50 Low back pain, unspecified
CPT/HCPCS: 72084; 73502

== ENCOUNTER → 2021-03-22 12:51 | Outpatient (CLI) | payer OTHER, SELFPAY ==
[2021-03-22 13:22] LABS: Adenovirus,PCR Not Detected (NotDetected); Bordetella Pertussis Not Detected (NotDetected); Chlamydophila Pneumoniae, PCR Not Detected (NotDetected); Coronavirus 19, PCR Not Detected (NotDetected); Coronavirus 229E Not Detected (NotDetected); Coronavirus NL63 Not Detected (NotDetected); Coronavirus OC43 Not Detected (NotDetected); Coronovirus HKU1,PCR Not Detected (NotDetected); Human Metapneumovirus Not Detected (NotDetected); Influenza A, PCR Not Detected (NotDetected); Influenza AH1, 2009 Not Detected (NotDetected); Influenza AH1, PCR Not Detected (NotDetected); Influenza AH3,PCR Not Detected (NotDetected); Influenza B, PCR Not Detected (NotDetected); Mycoplasma Pneumoniae, PCR Not Detected (NotDetected); Parainfluenza 1, PCR Not Detected (NotDetected); Parainfluenza 2, PCR Not Detected (NotDetected); Parainfluenza 3, PCR Not Detected (NotDetected); Parainfluenza 4, PCR Not Detected (NotDetected); Respiratory Syncytial Virus Not Detected (NotDetected); Rhinovirus/Enterovirus Not Detected (NotDetected)
[2021-03-22 13:29] LABS: Basophils # 0.1 K/mm3 (0-0.2); Basophils % 1.5 % (0.1-2.0); Eosinophils # 0.2 K/mm3 (0.0-0.4); Eosinophils % 2.7 % (0.1-12.0); Hematocrit 44.9 % (42.0-52.0); Hemoglobin 14.1 g/dL (14.1-18.0); Lymphocytes # 0.9 K/mm3 (0.7-4.5); Lymphocytes % 12.6 % (10-50); Mean Corpuscular HGB Conc 31.5 g/dL (31.8-35.4); Mean Corpuscular Hemoglobin 32.3 pg (27.0-31.2); Mean Corpuscular Volume 102.6 fl (80-94); Mean Platelet Volume 8.3 fl (7.4-10.4); Monocytes # 0.6 K/mm3 (0.1-1.0); Monocytes % 8.2 % (1.7-9.3); Neutrophils # 5.5 K/mm3 (1.8-7.8); Platelet Count 286 K/mm3 (142-424); Red Blood Count 4.38 M/mm3 (4.60-6.20); Red Cell Distribution Width 13.3 % (11.5-17.5); White Blood Count 7.3 K/mm3 (4.8-10.8)
--- NOTE | 2021-03-22 14:08 | XR_ITS ---
FINAL REPORT CLINICAL HISTORY: COVID OUTPATIENT cough, fever, soa COMPARISON: November 28, 2020 FINDINGS: SINGLE VIEW CHEST. The heart is normal in size. The mediastinum is unremarkable. There are mild left base opacities worrisome for pneumonia, new. There is no pneumothorax. IMPRESSION: Mild left lung base opacities worrisome for pneumonia, new. Reviewed, Interpreted and Dictated by Pepe Rosas III, MD Transcribed by Pat Duran Authenticated by Pepe Rosas III, MD on 03/22/2021 02:58:38 PM [facility]
== END ==
PROVIDERS: PCP Nurse Practitioner Family; Visit Provider Nurse Practitioner Family
DX: Z20.822 Contact with and (suspected) exposure to COVID-19 (principal)
CPT/HCPCS: 71045; 85025; 87581; 87632; 87798; C9803; U0003; U0005

== ENCOUNTER → 2021-07-19 15:55 | Outpatient (CLI) | payer OTHER, SELFPAY ==
--- NOTE | 2021-07-19 16:02 | XR_ITS ---
FINAL REPORT CLINICAL HISTORY: COVID OUTPATIENT COMPARISON: 03/22/2021 FINDINGS: SINGLE-VIEW CHEST The heart size is normal. The mediastinum is normal. There is mild left base opacity, favor atelectasis over pneumonia. There is no pneumothorax. IMPRESSION: Left base atelectasis over pneumonia. Reviewed, Interpreted and Dictated by Pepe Rosas III, MD Transcribed by Snehal Denise Authenticated and [facility]
== END ==
PROVIDERS: PCP Physician Assistant; Visit Provider Physician Assistant
DX: Z20.822 Contact with and (suspected) exposure to COVID-19 (principal)
CPT/HCPCS: 71045; C9803; U0003; U0005

== ENCOUNTER 2021-09-19 20:53 | Emergency (ER) | payer OTHER, SELFPAY ==
[2021-09-19 20:54] VITALS: BP 142/85; PULSE 92; RESP 18; TEMP 36.7; O2SAT 99; BMI 29.0
--- NOTE | 2021-09-19 21:00 | HMH.EDGENADL ---
ED Disposition Clinical Impression: Bleeding gums, Pain, dental Disposition: Home, Self-Care Condition on Discharge: Good Additional Instructions: You have been evaluated for bleeding gums after dental procedure. Please continue to monitor your symptoms. Bite down on gauze or a black tea bag. Follow-up with your primary dentist. Return to the emergency department for any new or worsening symptoms. Referrals: Toni Marte MD [Primary Care Provider] - Time of Disposition: 22:21 - Critical Care Critical Care Time: No Attestation: On , the high probability of a clinically significant, sudden or life threatening deterioration of the following system(s) required my full and direct attention, intervention and personal management. The time I documented below is in addition to time spent performing reported procedures but includes the following listed in this critical care notation. Medical Decision Making - Medical Records Medical records reviewed: Yes: I reviewed the patient's medical records. - Micheal Inquiry Pt receiving controlled substance: No Vital Signs: 09/19/21 20:54 Temperature 98.0 F Temperature Source Oral Pulse Rate [Right] 92 H Respiratory Rate 18 Blood Pressure [Right Arm] 142/85 H Blood Pressure Mean [Right Arm] 104 02 Sat by Pulse Oximetry 99 - Lab Data Lab Results 09/19/21 21:44: WBC 9.4, RBC 4.61, Hgb 14.7, Hct 47.7, MCV 103.5 H, MCH 31.9 H, MCHC 30.9 L, RDW 12.9, Plt Count 284, MPV 8.1, Neut % (Auto) 81.2 H, Lymph % (Auto) 9.7 L, Loving % (Auto) 6.0, Eos % (Auto) 1.8, Baso % (Auto) 1.3, Neut # (Auto) 7.6, Lymph # (Auto) 0.9, Loving # (Auto) 0.6, Eos # (Auto) 0.2, Baso # (Auto) 0.1 Result diagrams: 09/19/21 21:44 Orders (Tests/Meds): ED MEDICATIONS Discontinued Medications Generic Name Dose Route Start Last Admin Trade Name Freq PRN Reason Stop Dose Admin Tranexamic Acid 10 mg/ Sodium 250.1 mls @ 500.2 mls/hr 09/19/21 20:59 09/19/21 21:07 Chloride TP 09/19/21 21:00 500.2 mls/hr ONCE ONE Administration Ondansetron HCl 4 mg 09/19/21 21:01 09/19/21 21:08 Ondansetron 4mg Odt SL 09/19/21 21:02 4 mg ONCE ONE Administration ORDERS Category Date Time Status CMP [Comprehensive Metabolic Panel] Stat Lab 09/19/21 21:44 Received Medical Decision Narrative: In summary this is a 55-year-old male presenting to the emergency department with bleeding gums after dental extraction. Patient clinically stable on arrival. Vital signs within normal limits. Will obtain screening CBC and CMP. Gauze soaked with tranexamic acid. Applied on the right upper gums. Patient instructed to bite down and hold pressure. Laboratory results are reassuring. No significant anemia or thrombocytopenia. On reassessment, patient says he is feeling much better. Areas of active bleeding have clotted. Counseled him to monitor his symptoms closely. Continue pressure as needed. Follow-up with dentist. Given return precautions. Stable for discharge. General Adult HPI - General Stated complaint: dental bleeding from mouth from procd 09/19 @1400 Time Seen by Provider: 09/19/21 21:01 Mode of Arrival: Ambulatory Source of Information: Patient Limitations: No Limitations - History of Present Illness HPI narrative: 55-year-old male presenting to the emergency department with bleeding gums. They have been bleeding since today around 2 PM, for the past 7 hours. He had full dental extractions at a local dentist office. The bleeding is worse out of the right upper. He has been biting on gauze. Does not seem to be helping. Now he has nausea. No vomiting. Does not take blood thinning medicines, aspirin, Plavix, warfarin, others. Denies history of easy bleeding or bruising. No medications prior to arrival. - Related Data Home Medications Medication Instructions Recorded Confirmed Azithromycin [Z-Caleb 250mg Tab*] 250 mg PO UD DOSE PK 02/10/19 03/19/19 Jesús
--- NOTE | 2021-09-19 21:50 | PC.NURSE ---
BLOOD COLLECTED FROM PATIENT. PT TOLERATED WELL. EXPECTED WAIT TIMES GIVEN TO PATIENT.
[2021-09-19 21:54] LABS: Basophils # 0.1 K/mm3 (0-0.2); Basophils % 1.3 % (0.1-2.0); Eosinophils # 0.2 K/mm3 (0.0-0.4); Eosinophils % 1.8 % (0.1-12.0); Hematocrit 47.7 % (42.0-52.0); Hemoglobin 14.7 g/dL (14.1-18.0); Lymphocytes # 0.9 K/mm3 (0.7-4.5); Lymphocytes % 9.7 % (10-50); Mean Corpuscular HGB Conc 30.9 g/dL (31.8-35.4); Mean Corpuscular Hemoglobin 31.9 pg (27.0-31.2); Mean Corpuscular Volume 103.5 fl (80-94); Mean Platelet Volume 8.1 fl (7.4-10.4); Monocytes # 0.6 K/mm3 (0.1-1.0); Neutrophils # 7.6 K/mm3 (1.8-7.8); Neutrophils % 81.2 % (37.0-80.0); Platelet Count 284 K/mm3 (142-424); Red Blood Count 4.61 M/mm3 (4.60-6.20); Red Cell Distribution Width 12.9 % (11.5-17.5); White Blood Count 9.4 K/mm3 (4.8-10.8)
[2021-09-19 22:14] LABS: Alanine Aminotransferase 25 U/L (12-78); Albumin/Globulin Ratio 1.1 (1.1-1.8); Alkaline Phosphatase 125 U/L (38-126); Anion Gap 8.7 mEq/L (5-15); Aspartate Amino Transferase 27 U/L (17-59); Bilirubin,Total 0.3 mg/dl (0.2-1.3); Blood Urea Nitrogen 15 mg/dl (9-20); Calcium 9.1 mg/dl (8.4-10.2); Carbon Dioxide 31 mmol/L (22.0-30.0); Chloride 104 mmol/L (98-107); Creatinine Clearance Estimated 115 mL/min (50-200); Estimated Glomerular Filt Rate 77 ml/min (>60); GFR (African American) 93 ML/MIN (>60); Globulin 3.6 g/dL (1.3-3.2); Glucose 119 mg/dl (74-100); Potassium 4.7 mmoL/L (3.5-5.1); Sodium 139 mmol/L (136-145); Total Protein,Serum 7.6 g/dl (6.3-8.2)
--- NOTE | 2021-09-19 22:27 | PC.NURSE ---
rounded on pt. pt continues to blleding apply new 4x4 at this time
[2021-09-19 22:53] VITALS: BP 137/87; PULSE 90; RESP 18; TEMP 36.7; O2SAT 99
== END 2021-09-19 22:57 | disposition home or self-care (01) ==
PROVIDERS: Emergency Provider Emergency Medicine; PCP Family Medicine
DX: K08.89 Other specified disorders of teeth and supporting structures (principal)
CPT/HCPCS: 80053; 85025; 99282

== ENCOUNTER 2023-07-04 21:39 | Emergency (ER) | payer OTHER, SELFPAY ==
[2023-07-04 21:39] VITALS: BP 125/70; PULSE 89; RESP 17; TEMP 37.4; O2SAT 93; BMI 28.3
--- NOTE | 2023-07-04 21:39 | ED_ITS ---
<Statement entered by Paula Schmitt DO - 07/04/23 23:55> I was consulted by the GLORIA, and we discussed the complexity of the problems being addressed. I approved the treatment and management plan for this patient's care in the emergency department, thus performing a substantive portion of the medical decision making. Paula Schmitt DO Discharge Plan Disposition Patient Disposition: Home, Self-Care Prescriptions Prescriptions: New albuterol sulfate 90 mcg/actuation HFA aerosol inhaler 2 inh inhalation Q4H PRN (Reason: shortness of breath or wheezing) Qty: 17 0RF No Action albuterol sulfate 18 GM HFA aerosol inhaler 1 - 2 puffs IH Q4-6H PRN (Reason: Shortness Of Breath Or Wheezing) Qty: 1 2RF azithromycin 250 MG tablet 250 mg PO UD DOSE PK Rx Instructions: Take two (2) tablets today, then one (1) tablet days #2 thru #5 sildenafil (pulm.hypertension) 20 MG tablet 20 mg PO DIRECTED Referrals Follow up/Referrals: Toni Marte MD [Primary Care Provider] - See instructions Activity Restrictions/Add. Instructions Additional Instructions/Restrictions: Please follow-up with your primary care provider. Please return to the emergency department if you develop any new or worsening symptoms or become concerned for your health. Please use albuterol inhaler as needed. Clinical Impressions Clinical Impression: Cough syncope, COPD (chronic obstructive pulmonary disease) Discharge ED Provider: Armand Shore General Adult HPI <TIM Henry - Last Filed: 07/04/23 23:06> General Chief complaint: Shortness of Breath/Dyspnea Stated complaint: SOB Time Seen by Provider: 07/04/23 21:53 History of Present Illness HPI narrative: Patient presents for evaluation of syncope. Patient reportedly was in his father's yard with his girlfriend when he had a prolonged coughing spell and reportedly syncopized. EMS was called however patient regained consciousness upon EMS arrival after IV establishment. Patient currently denies chest pain fever chills hemoptysis hematochezia melena hematemesis nausea vomiting diarrhea. 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 Related Data Home Medications Medication Instructions Recorded Confirmed azithromycin 250 mg tablet 250 mg PO UD DOSE PK BRONCHITIS 02/10/19 03/19/19 sildenafil (pulm.hypertension) 20 20 mg PO DIRECTED Arthritis 02/10/19 03/19/19 mg tablet Previous Rx's Medication Instructions Recorded albuterol sulfate 90 mcg/actuation 1 - 2 puffs IH Q4-6H PRN Shortness 05/10/18 aerosol inhaler Of Breath Or Wheezing ##1 albuterol sulfate 90 mcg/actuation 2 inh inhalation Q4H PRN shortness 07/05/23 aerosol inhaler of breath or wheezing #17 grams Allergies Allergy/AdvReac Type Severity Reaction Status Date / Time No Known Allergies Allergy Verified 03/19/19 14:21 [facility] <TIM Henry - Last Filed: 07/04/23 23:06> [facility] Disclaimer: The information contained in this section may have been updated after the patient was seen, as this information can be updated by other users. Social History Smoking Status: Current every day smoker tobacco type: cigarettes packs per day: 1 second hand exposure: Yes alcohol intake: current alcohol intake frequency: a few times a week substance use type: denies use current occupational status: employed Travel in the last 8 weeks: Inside the [facility] housing: other current occupational exposures/hazards: No <TIM Henry - Last Filed: 07/04/23 23:06> ROS Obtained: Yes Systems reviewed as appropriate & no additional complaints except as documented Physical Exam <TIM Henry - Last Filed: 07/04/23 23:06> General General appearance: alert and in no apparent distress Head Head exam: atraumatic and normal inspection Eye Eye exam: Present normal appearance, PERRL and EOMI ENT ENT exam: Present normal exam, normal oropharynx and mucous membranes moist Neck Neck exam: Present normal inspection, full ROM and trachea midline Chest Chest inspection: Present normal inspection and symmetric chest wall rise Respiratory Respiratory exam: Present normal lung sounds bilaterally and wheezes (Diffuse end expiratory in all 4 blood); Absent respiratory distress or accessory muscle use Cardiovascular Cardiovascular exam: Present regular rate, normal rhythm, normal heart sounds, +S1 and +S2 Abdominal Exam Abdominal exam: Present soft and normal bowel sounds; Absent tenderness Extremities Exam Extremities exam: Present normal inspection and full ROM; Absent tenderness Back Exam Back exam: Present normal inspection and full ROM; Absent tenderness Neurological Exam Neurological exam: Present alert, oriented X3, CN II-XII intact, normal gait and motor sensory deficit Psychiatric Psychiatric exam: Present normal affect and normal mood Skin Skin exam: Present warm, dry and normal color Medical Decision Making <TIM Henry - Last Filed: 07/04/23 23:06> Medical Records Medical records reviewed: Yes I reviewed the patient's medical records. Micheal Inquiry Pt receiving controlled substance: No Vital Signs: 07/04/23 21:39 Temperature 99.4 F Temperature Source Oral Pulse Rate [Left Radial] 89 Respiratory Rate 17 Blood Pressure [Right Arm] 125/70 Blood Pressure Mean [Right Arm] 88 Blood Pressure Source [Right Arm] Automatic Cuff Blood Pressure Position [Right Arm] Sitting 02 Sat by Pulse Oximetry 93 L Oxygen Delivery Method Nasal Cannula Oxygen Flow Rate (LPM) 2 Lab Data Lab results reviewed: Yes I reviewed the patient's lab results. Lab Results 07/04/23 21:55: Specimen Source Right radial, O2 % 2lpm, ABG pH 7.35, ABG pCO2 43.1, ABG pO2 64.7 L, ABG HCO3 23.2, ABG Total CO2 24.5, ABG O2 Saturation 92, A BG Base Excess -2.5 L, Rodney Test Acceptable 07/04/23 23:15: WBC 10.7, RBC 4.24 L, Hgb 13.7 L, Hct 42.6, MCV 100.3 H, MCH 32.3 H, MCHC 32.2, RDW 13.8, Plt Count 271, MPV 8.7, Neut % (Auto) 66.3, Lymph % (Auto) 25.8, [place] % (Auto) 5.9, Eos % (Auto) 1.3, Baso % (Auto) 0.7, Neut # (Auto) 7.1, Lymph # (Auto) 2.8, [place] # (Auto) 0.6, Eos # (Auto) 0.1, Baso # (Auto) 0.1, PT 10.8, INR 1.00, D-Dimer 0.31, Sodium 139, Potassium 3.9, Chloride 107, Carbon Dioxide 24, Anion Gap 11.9, BUN 21 H, Creatinine 1.10, Estimated Creat Clear 100, Estimated GFR 69, Est GFR ( Amer) 83, Glucose 122 H, Calcium 8.8, Magnesium 1.9, Total Bilirubin 0.3, AST 27, ALT 21, Alkaline Phosphatase 89, Troponin I < 0.01, NT-Pro-B Natriuret Pep 32.2, Total Protein 7.4, Albumin 4.2, Globulin 3.2, Albumin/Globulin Ratio 1.3, Plasma/Serum Alcohol < 10 07/04/23 23:15 07/04/23 23:15 Orders (Tests/Meds): ED MEDICATIONS Generic Name Dose Route Start Last Admin Trade Name Freq PRN Reason Stop Dose Admin Albuterol Sulfate 2 puff 07/05/23 00:57 Albuterol-Hfa 90mcg/Puff Inhaler 8gm IH 08/04/23 00:56 Q4HP PRN Shortness Of Breath Miscellaneous 1 unit 07/05/23 00:57 Aerochamber/Optihaler MC 07/05/23 00:58 ONCE ONE Discontinued Medications Generic Name Dose Route Start Last Admin Trade Name Freq PRN Reason Stop Dose Admin Acetaminophen 1,000 mg 07/04/23 21:53 07/04/23 22:18 Acetaminophen 1,000mg/100ml Vial IV 07/04/23 21:54 1,000 mg ONCE ONE Administration Albuterol/Ipratropium 3 ml 07/04/23 21:53 07/04/23 22:37 Ipratropium/Albuterol 3 Ml Neb 07/04/23 21:54 3 ml ONCE ONE Administration Ketorolac Tromethamine 15 mg 07/04/23 21:53 07/04/23 22:19 Ketorolac 30mg/Ml Vial IV 07/04/23 21:54 15 mg ONCE ONE Administration Methylprednisolone Sodium Succinate 125 mg 07/04/23 21:53 07/04/23 22:18 Methylprednisolone Sod Succ 125mg Vial IV 07/04/23 21:54 125 mg ONCE ONE Administration ORDERS Category Date Time Status Chest XR -- portable [XR chest portable] Stat Exams 07/04/23 21:53 Completed BNP [NT Pro Brain Natriuretic Pep.] Stat Lab 07/04/23 23:15 Completed CBC w/Auto Diff [Complete Blood Count Auto Diff] Stat Lab 07/04/23 23:15 Completed CMP [Comprehensive Metabolic Panel] Stat Lab 07/04/23 23:15 Completed D-Dimer Stat Lab 07/04/23 23:15 Completed Ethanol [Ethyl Alcohol] Stat Lab 07/04/23 23:15 Completed INR [Prothrombin Time INR] Stat Lab 07/04/23 23:15 Completed Magnesium Stat Lab 07/04/23 23:15 Completed Trop I [Troponin I] Stat Lab 07/04/23 23:15 Completed Troponin I Q3H Lab 07/05/23 01:00 Ordered Troponin I Q3H Lab 07/05/23 04:00 Ordered UA [Urinalysis and Microscopic] Stat Lab 07/04/23 21:54 Ordered UDS [Drug Screen,Urine] Stat Lab 07/04/23 21:53 Ordered ABG [Arterial Blood Gas] Stat RT 07/04/23 21:55 Completed HEART Score History (anamnesis): Slightly suspicious ECG: Normal Age: 45-65 years Risk factors: 3 or more risk factors Medical Decision Narrative: In summary patient is a 57-year-old male who presents to the emergency department for evaluation of syncope. Patient is normotensive with a heart rate of 89 blood pressure of 125/70 but satting at 93% on 2 L by nasal cannula (patient does not normally wear supplemental O2) upon arrival, and afebrile. Physical exam is remarkable for end expiratory wheezes in all 4 blood but the remainder of his physical exam shows no deformities no tenderness Lynda Coma Score 15. Differential diagnosis includes COPD with acute exacerbation, vasovagal syncope, ACS etc. Initial workup will be conducted with hematologic labs twelve-lead EKG plain films chest x-ray. Initial interventions include IV steroids Toradol acetaminophen DuoNeb. Initial workup ordered and pending at the time of handoff to the overnight provider at 2300 hrs. <Paula Schmitt, DO - Last Filed: 07/04/23 23:56> Vital Signs: 07/04/23 21:39 Temperature 99.4 F Temperature Source Oral Pulse Rate [Left Radial] 89 Respiratory Rate 17 Blood Pressure [Right Arm] 125/70 Blood Pressure Mean [Right Arm] 88 Blood Pressure Source [Right Arm] Automatic Cuff Blood Pressure Position [Right Arm] Sitting 02 Sat by Pulse Oximetry 93 L Oxygen Delivery Method Nasal Cannula Oxygen Flow Rate (LPM) 2 Lab Data Lab Results 07/04/23 21:55: Specimen Source Right radial, O2 % 2lpm, ABG pH 7.35, ABG pCO2 43.1, ABG pO2 64.7 L, ABG HCO3 23.2, ABG Total CO2 24.5, ABG O2 Saturation 92, A BG Base Excess -2.5 L, Rodney Test Acceptable 07/04/23 23:15: WBC 10.7, RBC 4.24 L, Hgb 13.7 L, Hct 42.6, MCV 100.3 H, MCH 32.3 H, MCHC 32.2, RDW 13.8, Plt Count 271, MPV 8.7, Neut % (Auto) 66.3, Lymph % (Auto) 25.8, [place] % (Auto) 5.9, Eos % (Auto) 1.3, Baso % (Auto) 0.7, Neut # (Auto) 7.1, Lymph # (Auto) 2.8, [place] # (Auto) 0.6, Eos # (Auto) 0.1, Baso # (Auto) 0.1, PT 10.8, INR 1.00, D-Dimer 0.31, Sodium 139, Potassium 3.9, Chloride 107, Carbon Dioxide 24, Anion Gap 11.9, BUN 21 H, Creatinine 1.10, Estimated Creat Clear 100, Estimated GFR 69, Est GFR ( Amer) 83, Glucose 122 H, Calcium 8.8, Magnesium 1.9, Total Bilirubin 0.3, AST 27, ALT 21, Alkaline Phosphatase 89, Troponin I < 0.01, NT-Pro-B Natriuret Pep 32.2, Total Protein 7.4, Albumin 4.2, Globulin 3.2, Albumin/Globulin Ratio 1.3, Plasma/Serum Alcohol < 10 Orders (Tests/Meds): ED MEDICATIONS Generic Name Dose Route Start Last Admin Trade Name Freq PRN Reason Stop Dose Admin Albuterol Sulfate 2 puff 07/05/23 00:57 Albuterol-Hfa 90mcg/Puff Inhaler 8gm IH 08/04/23 00:56 Q4HP PRN Shortness Of Breath Miscellaneous 1 unit 07/05/23 00:57 Aerochamber/Optihaler MC 07/05/23 00:58 ONCE ONE Discontinued Medications Generic Name Dose Route Start Last Admin Trade Name Freq PRN Reason Stop Dose Admin Acetaminophen 1,000 mg 07/04/23 21:53 07/04/23 22:18 Acetaminophen 1,000mg/100ml Vial IV 07/04/23 21:54 1,000 mg ONCE ONE Administration Albuterol/Ipratropium 3 ml 07/04/23 21:53 07/04/23 22:37 Ipratropium/Albuterol 3 Ml Neb IH 07/04/23 21:54 3 ml ONCE ONE Administration Ketorolac Tromethamine 15 mg 07/04/23 21:53 07/04/23 22:19 Ketorolac 30mg/Ml Vial IV 07/04/23 21:54 15 mg ONCE ONE Administration Methylprednisolone Sodium Succinate 125 mg 07/04/23 21:53 07/04/23 22:18 Methylprednisolone Sod Succ 125mg Vial IV 07/04/23 21:54 125 mg ONCE ONE Administration ORDERS Category Date Time Status Chest XR -- portable [XR chest portable] Stat Exams 07/04/23 21:53 Completed BNP [NT Pro Brain Natriuretic Pep.] Stat Lab 07/04/23 23:15 Completed CBC w/Auto Diff [Complete Blood Count Auto Diff] Stat Lab 07/04/23 23:15 Completed CMP [Comprehensive Metabolic Panel] Stat Lab 07/04/23 23:15 Completed D-Dimer Stat Lab 07/04/23 23:15 Completed Ethanol [Ethyl Alcohol] Stat Lab 07/04/23 23:15 Completed INR [Prothrombin Time INR] Stat Lab 07/04/23 23:15 Completed Magnesium Stat Lab 07/04/23 23:15 Completed Trop I [Troponin I] Stat Lab 07/04/23 23:15 Completed Troponin I Q3H Lab 07/05/23 01:00 Ordered Troponin I Q3H Lab 07/05/23 04:00 Ordered UA [Urinalysis and Microscopic] Stat Lab 07/04/23 21:54 Ordered UDS [Drug Screen,Urine] Stat Lab 07/04/23 21:53 Ordered ABG [Arterial Blood Gas] Stat RT 07/04/23 21:55 Completed ECG Data Tracing #1: I reviewed this ECG and interpreted as documented below: Normal sinus rhythm with a ventricular rate of [address] changes concerning for ischemia. Normal axis and intervals. ECG initial impression date: 07/04/23 ECG initial impression time: 21:48 <Armand Shore MD - Last Filed: 07/05/23 01:04> Vital Signs: 07/04/23 21:39 Temperature 99.4 F Temperature Source Oral Pulse Rate [Left Radial] 89 Respiratory Rate 17 Blood Pressure [Right Arm] 125/70 Blood Pressure Mean [Right Arm] 88 Blood Pressure Source [Right Arm] Automatic Cuff Blood Pressure Position [Right Arm] Sitting 02 Sat by Pulse Oximetry 93 L Oxygen Delivery Method Nasal Cannula Oxygen Flow Rate (LPM) 2 Lab Data Lab Results 07/04/23 21:55: Specimen Source Right radial, O2 % 2lpm, ABG pH 7.35, ABG pCO2 43.1, ABG pO2 64.7 L, ABG HCO3 23.2, ABG Total CO2 24.5, ABG O2 Saturation 92, A BG Base Excess -2.5 L, Rodney Test Acceptable 07/04/23 23:15: WBC 10.7, RBC 4.24 L, Hgb 13.7 L, Hct 42.6, MCV 100.3 H, MCH 32.3 H, MCHC 32.2, RDW 13.8, Plt Count 271, MPV 8.7, Neut % (Auto) 66.3, Lymph % (Auto) 25.8, [place] % (Auto) 5.9, Eos % (Auto) 1.3, Baso % (Auto) 0.7, Neut # (Auto) 7.1, Lymph # (Auto) 2.8, [place] # (Auto) 0.6, Eos # (Auto) 0.1, Baso # (Auto) 0.1, PT 10.8, INR 1.00, D-Dimer 0.31, Sodium 139, Potassium 3.9, Chloride 107, Carbon Dioxide 24, Anion Gap 11.9, BUN 21 H, Creatinine 1.10, Estimated Creat Clear 100, Estimated GFR 69, Est GFR ( Amer) 83, Glucose 122 H, Calcium 8.8, Magnesium 1.9, Total Bilirubin 0.3, AST 27, ALT 21, Alkaline Phosphatase 89, Troponin I < 0.01, NT-Pro-B Natriuret Pep 32.2, Total Protein 7.4, Albumin 4.2, Globulin 3.2, Albumin/Globulin Ratio 1.3, Plasma/Serum Alcohol < 10 Orders (Tests/Meds): ED MEDICATIONS Generic Name Dose Route Start Last Admin Trade Name Freq PRN Reason Stop Dose Admin Albuterol Sulfate 2 puff 07/05/23 00:57 Albuterol-Hfa 90mcg/Puff Inhaler 8gm IH 08/04/23 00:56 Q4HP PRN Shortness Of Breath Miscellaneous 1 unit 07/05/23 00:57 Aerochamber/Optihaler MC 07/05/23 00:58 ONCE ONE Discontinued Medications Generic Name Dose Route Start Last Admin Trade Name Freq PRN Reason Stop Dose Admin Acetaminophen 1,000 mg 07/04/23 21:53 07/04/23 22:18 Acetaminophen 1,000mg/100ml Vial IV 07/04/23 21:54 1,000 mg ONCE ONE Administration Albuterol/Ipratropium 3 ml 07/04/23 21:53 07/04/23 22:37 Ipratropium/Albuterol 3 Ml Neb IH 07/04/23 21:54 3 ml ONCE ONE Administration Ketorolac Tromethamine 15 mg 07/04/23 21:53 07/04/23 22:19 Ketorolac 30mg/Ml Vial IV 07/04/23 21:54 15 mg ONCE ONE Administration Methylprednisolone Sodium Succinate 125 mg 07/04/23 21:53 07/04/23 22:18 Methylprednisolone Sod Succ 125mg Vial IV 07/04/23 21:54 125 mg ONCE ONE Administration ORDERS Category Date Time Status Chest XR -- portable [XR chest portable] Stat Exams 07/04/23 21:53 Completed BNP [NT Pro Brain Natriuretic Pep.] Stat Lab 07/04/23 23:15 Completed CBC w/Auto Diff [Complete Blood Count Auto Diff] Stat Lab 07/04/23 23:15 Completed CMP [Comprehensive Metabolic Panel] Stat Lab 07/04/23 23:15 Completed D-Dimer Stat Lab 07/04/23 23:15 Completed Ethanol [Ethyl Alcohol] Stat Lab 07/04/23 23:15 Completed INR [Prothrombin Time INR] Stat Lab 07/04/23 23:15 Completed Magnesium Stat Lab 07/04/23 23:15 Completed Trop I [Troponin I] Stat Lab 07/04/23 23:15 Completed Troponin I Q3H Lab 07/05/23 01:00 Ordered Troponin I Q3H Lab 07/05/23 04:00 Ordered UA [Urinalysis and Microscopic] Stat Lab 07/04/23 21:54 Ordered UDS [Drug Screen,Urine] Stat Lab 07/04/23 21:53 Ordered ABG [Arterial Blood Gas] Stat RT 07/04/23 21:55 Completed Medical Decision Narrative: In summary patient is a 57-year-old male who presents to the emergency department for evaluation of syncope after a coughing fit. Patient is normotensive with a heart rate of 89 blood pressure of 125/70 but satting at 93% on 2 L by nasal cannula (patient does not normally wear supplemental O2) upon arrival, and afebrile. Physical exam is remarkable for end expiratory wheezes in all 4 blood but the remainder of his physical exam shows no deformities no tenderness Lynda Coma Score 15. Differential diagnosis includes COPD with acute exacerbation, vasovagal syncope, ACS etc. Initial workup will be conducted with hematologic labs twelve-lead EKG plain films chest x-ray. Initial interventions include IV steroids Toradol acetaminophen DuoNeb. Initial workup ordered and pending at the time of handoff to the overnight provider at 2300 hrs. Mone FAITH: I assumed care of the patient at the time of handoff from the prior provider. On reassessment, patient remains hemodynamically stable, sleeping comfortably, no oxygen requirement. Lungs sounds are clear. History and exam is most consistent with cough related syncope. Patient had no preceding or antecedent chest pain or other concerning features.. Lab results were independently interpreted me and significant for negative D-dimer, negative initial troponin, no other intervenable laboratory results. Chest x-ray independently interpreted by me and significant for clear lungs without acute opacity. EKG interpreted by me, sinus rhythm, rate of 83, no concerning ST or T wave changes, no evidence of arrhythmia. Interactive discussion with patient regarding her presentation. He was discharged in stable condition. Return precautions given. I was consulted by the GLORIA, and we discussed the complexity of the problems being addressed. I approved the treatment and management plan for this patient?s care in the Emergency Department, thus performing a substantive portion of the medical decision making. Armand Shore MD Critical Care <Paula Schmitt, DO - Last Filed: 07/04/23 23:56> Critical Care Time Critical Care Time: No
--- NOTE | 2023-07-04 21:46 | ECG_ITS ---
APPROVED REPORT Exam: Resting ECG HR:83 bpm ECG Measurements Heart Rate 83 AXES AK 188 P 76 QRSd 85 QRS 84 QT 356 T 77 QTc 396 Conclusion SINUS RHYTHM LOW QRS VOLTAGE IN PRECORDIAL LEADS [QRS DEFLECTION < 1.0 mV IN CHEST LEADS] ANTEROSEPTAL MYOCARDIAL INFARCTION , OF INDETERMINATE AGE [40+ ms Q WAVE IN V1-V4] Electronically signed by : KERRIE WRAY, 07/04/2023 23:23:35
--- NOTE | 2023-07-04 21:53 | XR_ITS ---
PROCEDURE INFORMATION: Exam: XR Chest Exam date and time: 07/04/2023 10:22 PM Age: 57 years old Clinical indication: Pain; Chest pressure; Additional info: Chest pain, shortness of breath TECHNIQUE: Imaging protocol: Radiologic exam of the chest. Views: 1 view. COMPARISON: CR XR CHEST PORTABLE 07/19/2021 4:09 PM FINDINGS: Lungs: Unremarkable. No consolidation. Pleural spaces: Unremarkable. No pleural effusion. No pneumothorax. Heart/Mediastinum: Unremarkable. No cardiomegaly. Bones/joints: Unremarkable. IMPRESSION: Stable chest x-ray with no acute disease.
[2023-07-04] MEDS: ACETAMINOPHEN 1,000MG/100ML VIAL 1000 MG IV (22:18)
[2023-07-04] MEDS: METHYLPREDNISOLONE SOD SUCC 125MG VIAL 125 MG IV (22:18)
[2023-07-04] MEDS: KETOROLAC 30MG/ML VIAL 15 MG IV (22:19)
[2023-07-04] MEDS: IPRATROPIUM/ALBUTEROL 3 ML NEB IH (22:37)
[2023-07-04 22:44] LABS: ABG Base Excess -2.5 mmol/L (-2.4-2.3); ABG HCO3 23.2 mmhg (22.0-26.0); ABG Oxygen Saturation 92 % (90-100); ABG PCO2 43.1 mmhg (35.0-45.0); ABG PH 7.35 mmol/L (7.35-7.45); ABG PO2 64.7 mmhg (80-100); ABG TCO2 24.5 mmhg (23-27)
[2023-07-04 22:45] LABS: Allen's Test Acceptable; Oxygen 2LPM %; Source Right Radial
--- NOTE | 2023-07-04 23:14 | PC.NURSE ---
lab at bedside
[2023-07-04 23:27] LABS: Basophils # 0.1 K/mm3 (0-0.2); Basophils % 0.7 % (0.1-2.0); Eosinophils # 0.1 K/mm3 (0.0-0.4); Eosinophils % 1.3 % (0.1-12.0); Hematocrit 42.6 % (42.0-52.0); Hemoglobin 13.7 g/dL (14.1-18.0); Lymphocytes # 2.8 K/mm3 (0.7-4.5); Lymphocytes % 25.8 % (10-50); Mean Corpuscular HGB Conc 32.2 g/dL (31.8-35.4); Mean Corpuscular Hemoglobin 32.3 pg (27.0-31.2); Mean Corpuscular Volume 100.3 fl (80-94); Mean Platelet Volume 8.7 fl (7.4-10.4); Monocytes # 0.6 K/mm3 (0.1-1.0); Monocytes % 5.9 % (1.7-9.3); Neutrophils # 7.1 K/mm3 (1.8-7.8); Neutrophils % 66.3 % (37.0-80.0); Platelet Count 271 K/mm3 (142-424); Red Blood Count 4.24 M/mm3 (4.60-6.20); Red Cell Distribution Width 13.8 % (11.5-17.5); White Blood Count 10.7 K/mm3 (4.8-10.8)
[2023-07-04 23:30] LABS: Chloride 107 mmol/L (98-107); Potassium 3.9 mmoL/L (3.5-5.1); Sodium 139 mmol/L (136-145)
[2023-07-04 23:32] LABS: Blood Urea Nitrogen 21 mg/dl (9-20); Creatinine Clearance Estimated 100 mL/min (50-200); Estimated Glomerular Filt Rate 69 ml/min (>60); GFR (African American) 83 ML/MIN (>60)
[2023-07-04 23:33] LABS: Alanine Aminotransferase 21 U/L (12-78); Albumin Level 4.2 g/dl (3.5-5.0); Albumin/Globulin Ratio 1.3 (1.1-1.8); Alkaline Phosphatase 89 U/L (38-126); Anion Gap 11.9 mEq/L (5-15); Aspartate Amino Transferase 27 U/L (17-59); Bilirubin,Total 0.3 mg/dl (0.2-1.3); Calcium 8.8 mg/dl (8.4-10.2); Carbon Dioxide 24 mmol/L (22.0-30.0); Globulin 3.2 g/dL (1.3-3.2); Glucose 122 mg/dl (74-100); Total Protein,Serum 7.4 g/dl (6.3-8.2)
[2023-07-04 23:34] LABS: Magnesium 1.9 mg/dl (1.6-2.3); Prothrombin Time 10.8 seconds (10.1-12.5)
[2023-07-04 23:35] LABS: Ethyl Alcohol < 10 mg/dl (0-10)
[2023-07-04 23:41] LABS: D-Dimer 0.31 ug/mL (0.0-0.5)
[2023-07-04 23:43] LABS: NT Pro Brain Natriuretic Pep. 32.2 pg/mL (0-125)
[2023-07-04 23:45] LABS: Troponin I < 0.01 ng/ml (0.00-0.034)
--- NOTE | 2023-07-05 00:29 | PC.NURSE ---
Dr. Shore to bedside and spoke with patient. Turned off supplemental oxygen at this time to trial on room air.
[2023-07-05] MEDS: ALBUTEROL-HFA 90MCG/PUFF INHALER 8GM 2 PUFF IH (01:05)
[2023-07-05 01:09] VITALS: BP 103/60; PULSE 89; RESP 22; TEMP 36.9; O2SAT 96
== END 2023-07-05 01:11 | disposition home or self-care (01) ==
PROVIDERS: Physician Assistant; Emergency Provider Emergency Medicine; PCP Family Medicine
DX: R55 Syncope and collapse (principal); R05.9 Cough, unspecified; J44.9 Chronic obstructive pulmonary disease, unspecified; F17.210 Nicotine dependence, cigarettes, uncomplicated
CPT/HCPCS: 36415; 71045; 80053; 82803; 83735; 83880; 84484; 85025; 85378; 85610; 93005; 96374; 96375; 99285; J0131

== ENCOUNTER 2024-01-06 11:03 | Outpatient (CLI) | payer OTHER, SELFPAY ==
--- OUTSIDE RECORDS SUMMARY | 2024-01-06 11:06 | XMS_ITS ---
Author Organization [facility] [employer] [place] Address [address] [place] [address] Care Team Providers Care Search Director Name Role Phone Batsheva Silveira Primary Care Provider Juli Joyce [phone] Encounters Encounter Location Date Provider Diagnosis [address] [address] 08/16/2022 Juli Joyce Plan Of Treatment No Information Progress Notes * Jose ROSARIODOB: [birth year] (58 yo M)Acc No.[id number]:08/16/2022 Patient:?Jose ROSARIO Provider:?Juli Joyce :1965???Age:56 Y???Sex:Male Kevin e:08/16/2022 [place] Pcp:Batsheva Silveira Subjective: * Chief Complaints: * ??? * Medical History:? Objective: * Vitals:? Assessment: Plan: * Treatment: * Billing Information: * Visit Code:? * Procedure Codes:? * Electronic signature of CINDY Newberry on 01/06/2024 at 11:06 AM EST Sign off status: Pending Visit Status:?CANC (Cancelle d) * Provider:Shanta Joyce Date:?08/16/2022 Generated for Josh daniels/Rodrigo/eTjocelinitting on:?01/06/2024 11:06 AM EST
--- OUTSIDE RECORDS SUMMARY | 2024-01-06 11:06 | XMS_ITS ---
Author Organization [facility], [place] Address [address] [place] [address] Care Team Providers Care Loom Checker Name Role Phone Batsheva Silveira Primary Care Provider Juli Joyce [phone] Encounters Encounter Location Date Provider Diagnosis [address] [address] 08/23/2022 Juli Joyce Plan Of Treatment No Information Progress Notes * Jose ROSARIODOB: [birth year] (58 yo M)Acc No.[id number]:08/23/2022 Patient:?Jose ROSARIO Provider:?Juli Joyce :1965???Age:56 Y???Sex:Male Kevin e:08/23/2022 [place] Pcp:Batsheva Silveira Subjective: * Chief Complaints: * ??? * Medical History:? Objective: * Vitals:? Assessment: Plan: * Treatment: * Billing Information: * Visit Code:? * Procedure Codes:? * Electronic signature of CINDY Newberry on 01/06/2024 at 11:06 AM EST Sign off status: Pending Visit Status:?CANC (Cancelle d) * Provider:Shanta Joyce Date:?08/23/2022 Generated for Josh daniels/Rodrigo/eTjocelinitting on:?01/06/2024 11:06 AM EST
--- OUTSIDE RECORDS SUMMARY | 2024-01-06 11:06 | XMS_ITS ---
Author Organization [place] [employer], [place] Address [address] [facility] [address] Care Team Providers Care Senior Systems Programmer Name Role Phone Batsheva Silveira Primary Care Provider Winnie Montoya [phone] REASON FOR VISIT Vivitrol Inj Encounters Encounter Location Date Provider Diagnosis [facility] [address] [place] [address] 08/03/2022 Winnie Montoya Plan Of Treatment No Information Progress Notes * Jose ROSARIODOB: [birth year] (58 yo M)Acc No.[id number]:08/03/2022 Patient:?Jose ROSARIO Provider:?Winnie Montoya APRN :1965???Age:56 Y???Sex:Male Kevin e:08/03/2022 [facility] Pcp:Batsheva Silveira Subjective: * Chief Complaints: * ???1. Vivitrol Inj. * Medical History:? Objective: * Vitals:? Assessment: Plan: * Treatment: * Billing Information: * Visit Code:? * Procedure Codes:? * Electronic signature of Sourav Montoya APRN on 01/06/2024 at 11:06 AM EST Sign off status: Pending Visit Status:?CANC (Cancelle d) * Provider:?Winnie Montoya APRN Date:?07/19 Generated for Josh daniels/oRdrigo/eTransmitting on:?01/06/2024 11:06 AM EST
--- OUTSIDE RECORDS SUMMARY | 2024-01-06 11:06 | XMS_ITS | Patient Health Record ---
Author Organization [facility] Address [address] [facility] [place] [address] Care Team Providers Care Other Sales Support Worker Name Role Phone Batsheva Silveira Primary Care Provider Allergies No Known Allergies Reason For Referral No Information Medications Medication SIG (Take, Route, Fr equency, Duration) Notes Start Date End Date Status Flomax Active Vistaril Active Melatonin 5 MG 1 tablet at bedtime as needed Orally Once a day Active Vivitrol 380 MG 4 ml Intramuscular m onthly for 28 days 05/16/2022 Active Epclusa 400-100 MG 1 tablet Orally Once a day for 84 days 04/26/2022 Active Trelegy Ellipta Acti ve Social History Tobacco Use: Social History Observation Description Date Details (start date - stop date) Current Smoker NA - NA Tobacco Use/Smoking Question Answer Notes Are you a current smoker How often do you smoke cigarettes? every day How many cigarettes a day do you smoke? 21-30 Alcohol Screen (Audit-C) Question Answer Notes Did you have a drink contain ing alcohol in the past year? Yes How often did you have a dri nk containing alcohol in the past year? 4 or more times a week (4 points) How many drinks did you have on a typical day when you were drinking in the past year? 10 or more drinks (4 points) How often did you have 6 or more drinks on one occasion in the past year? Daily or almost daily (4 points) Points 12 Interpretation Positive Problems Problem Type SNOMED Code ICD Code Onset Dates Problem Status W/U Status Risk Notes Problem Chronic hepatitis C (429979464) Chronic viral hepatitis C (B18.2) Active confirmed Problem Alcohol dependence (03610737) Uncomplicated alcohol dependence (F10.20) Active confirmed Problem Abuse of antidepressant drug (749338492) Substance use disorder (F19.90) Active confirmed Problem Disorder caused by alcohol (disorder) (879342358) Alcohol use disorder (F10.90) Active confirmed Plan Of Treatment No Information Insurance Providers Payer Name Payer Address Payer Phone Subscriber Number Group Number Insured Name Patient Relationship to Insured Coverage Start Date Coverage End Date [employer] [address] [place] [id number] [phone] [id number] Jose Lucia Self - patient is the insured 3 Medical (General) History Medical History History ICD Code copd benign prostatic hyperplasia (BPH) Alcohol use disorder F10.90 Chronic viral hepatitis C B18.2 Substance use disorder F19.90 Insomnia, unspecified G47.00 Surgical History Surgery Date(Month/Year) left knee arthroscopy 2002 Right testicular mass 2021
--- NOTE | 2024-01-06 11:09 | XR_ITS ---
FINAL REPORT CLINICAL HISTORY: pain COMPARISON: None FINDINGS: RIGHT SHOULDER Three views demonstrate no acute fracture or dislocation. There is mild heterotrophic change of the acromioclavicular and glenohumeral joints consistent with osteoarthritis. The soft tissues are unremarkable. IMPRESSION: No acute process. Changes of osteoarthritis. Reviewed, Interpreted and Dictated by Matti Young MD Transcribed by Jaycee Bailey Authenticated and [facility]
== END 2024-01-06 23:59 | disposition home or self-care (01) ==
LOC: RAD 11:05
PROVIDERS: PCP Nurse Practitioner Family; Visit Provider Nurse Practitioner Family
DX: M25.511 Pain in right shoulder (principal)
CPT/HCPCS: 73030

== ENCOUNTER 2024-01-22 10:13 | Outpatient (CLI) | payer OTHER, SELFPAY ==
--- NOTE | 2024-01-22 10:14 | CT_ITS ---
FINAL REPORT TECHNIQUE: Thin section axial images were obtained from the lung apices to the upper abdomen by computed tomography. Reformatted images were obtained and reviewed. This study was performed with techniques to keep radiation doses al low as reasonably achievable (ALARA). Individualized dose reduction techniques using automated exposure control or adjustment of mA and/or kV according to the patient's size were employed. CLINICAL HISTORY: SCREENING CURRENT SMOKER, 1/2 PPD X 20 YEARS COMPARISON: None FINDINGS: CHEST CT LOW DOSE 58-year-old male, current smoker, 50-oydv-tylr history CTDI vol (mGy): 2.90 DLP (mGy-cm): 115.94 There is no axillary adenopathy. There is no mediastinal or hilar mass or adenopathy. The heart is normal in size. Moderate to severe coronary artery calcifications are present. There is no pericardial or pleural effusion. There is mild emphysema and mild pulmonary scarring. Lung window images demonstrate a 10 mm ground glass opacity in the anterior left lower lobe seen on image #41 of series 3. A calcified granuloma is present in the posterior left upper lobe. Limited images of the upper abdomen are unremarkable. IMPRESSION: Lung-RADS category 2S, the S designation for moderate to severe coronary artery calcifications. Recommend 12 month follow up low dose chest CT. Reviewed, Interpreted and Dictated by Pepe Rosas III, MD Transcribed by Jaycee Bailey Authenticated and [facility]
== END 2024-01-22 23:59 | disposition home or self-care (01) ==
LOC: RAD 10:13
PROVIDERS: PCP Nurse Practitioner Family; Visit Provider Nurse Practitioner Family
DX: F17.210 Nicotine dependence, cigarettes, uncomplicated (principal)
CPT/HCPCS: 71271

== ENCOUNTER 2024-02-28 15:07 | Outpatient (RCR) | payer OTHER, SELFPAY ==
--- NOTE | 2024-02-28 16:35 | HMH.OTOPEV ---
OT Inpatient Evaluation Rehab OT Outpatient Eval Start: 02/28/24 16:13 Freq: Status: Active Protocol: Document 02/28/24 16:14 LEIDYDWAINE (Rec: 02/28/24 16:31 [place] [id number]) E-signed By Shawna Bond, OT Outpatient Therapy Subjective History Subjective History 58 year old male referred to skilled OP OT services for R shld pain. Patient verbalize having R shld pain for the past 2 months after reaching in the back seat of car from drivers side. Patient verbalize feeling a pop with having burning and sharp pain from shoulder to elbow. Patient had an x-ray on R Shld on 01/06/24 with findings of: No acute process. Changes of osteoarthritis. Pending MRI with insurance approval. f/u with ortho in 6 weeks. Chief Complaint Pain,Weakness Symptom Type Ache,Sharp,Burning Symptoms Relieved By Nothing Symptoms Aggravated By Physical Activity Prior Functional Limitations None Current Functional Limitations Reaching,Lifting,Sleeping Symptom Description Constant and Continuous Level of pain today (0-10) 6 Pain scale - at its best (0-10) 6 Pain scale - at its worst (0-10) 10 Shoulder/Elbow Eval Shoulder Objective Measurements Shoulder ROM Right Shoulder Abduction Active Range of 50 Motion (degrees) Shoulder Abduction Passive Range of 110 Motion (degrees) Shoulder Flexion Active Range of Motion 90 (degrees) Query Text: Shoulder Flexion Passive Range of Motion 130 (degrees) Shoulder External Rotation Active Range 0 of Motion (degrees) Shoulder External Rotation Passive Range 0 of Motion (degrees) Shoulder Internal Rotation Active Range 0 of Motion (degrees) Shoulder Internal Rotation Passive Range 0 of Motion (degrees) Shoulder MMT Shoulder Abduction Strength Grade 2+ Poor+ Shoulder Extension Strength Grade 2+ Poor+ Shoulder Flexion Strength Grade 2+ Poor+ Shoulder Horizontal Abduction Strength 2+ Poor+ Grade Shoulder Horizontal Adduction Strength 2+ Poor+ Grade Infraspinatus/Teres Minor Strength Grade 2+ Poor+ Shoulder External Rotation Strength 2+ Poor+ Grade Shoulder Internal Rotation Strength 2+ Poor+ Grade Elbow Objective Measurements QuickDASH Activities Please rate your ability to do the following activities in the last week by selecting the number below the appropriate response. 1. Open a tight or new jar. Severe difficulty 2. Do heavy practice management consultant (e.g., wash Moderate difficulty vargas, floors). 3. Carry a shopping bag or briefcase. Moderate difficulty 4. Wash your back. Severe difficulty 5. Use a knife to cut food. Moderate difficulty 6. Recreational activities in which you Severe difficulty take some force or impact through your arm, shoulder, or hand (e.g., golf, hammering, tennis, etc.). 7. During the past week, to what extent Quite a bit has your arm, shoulder or hand problem interfered with your normal social activities with family, friends, neighbors or groups? 8. During the past week, were you Very limited limited in your work or other regular daily activites as a result of your arm, shoulder or hand problem? 9. Arm, shoulder or hand pain. Extreme 10. Tingling (pins and needles) in your Moderate arm, shoulder or hand. 11. During the past week, how much So much difficulty that I can' difficulty have you had sleeping because t sleep of the pain in your arm, shoulder or hand? Quick DASH 42 OT Outpatient Assessment Impairments Problems/Impairments Impaired Range of Motion, Impaired Strength,Subjective C /O Pain Prognosis Rehab Potential Good Clinical Impression Consistent with Diagnosis Yes Short Term Goals Number of Weeks 2 Increase Range of Motion Yes: Improve AROM of R UE shld flex: 120; abd: 100; er: 40; ir: 40 Increase Strength Yes: Improve R UE shld strength to 3- to 3/5 throughout Decrease Subjective C/O Pain Yes: 8/10 pain at worst Patient to be Ind w/ HEP Yes: PROM Patient to be Ind w/ Advanced HEP Yes: Strengthening Improve Quick Dash Score Yes: 38 Long-Term Goals Number of Weeks 4 Increase Range of Motion Yes: Improve AROM of R UE shld flex: 140; abd: 140; er: 60; ir: 60 Increase Strength Yes: Improve R UE shld strength to 3/5 to 3+/5 throughout Decrease Subjective C/O Pain Yes: 5/10 pain at worst Patient to be Ind w/ HEP Yes: AROM Patient to be Ind w/ Advanced HEP Yes: Advance strengthening Improve Quick Dash Score Yes: 30 Outpatient Therapy Plan of Care Treatment Plan May Include Therapeutic Exercise Including Home Yes Exercise Program Manual Therapy Techniques Yes Therapeutic Activities to Return to Yes Previous Functional/Work Level Thermal Modalities Yes Electrical Stimulation Yes Ultrasound/Phonophoresis Yes Iontophoresis Yes Eval/Re-Eval Yes Aquatic Therapy Yes Frequency Times per week 2x/wk Duration Number of Weeks 4 weeks Addendums This patient is a candidate for social No or vocational rehab? Patient/Guardian verbally acknowledges Yes understanding of treatment program and consents to further treatment? Patient/Guardian verbally acknowledges Yes understanding of diagnosis, prognosis and goals for treatment? Eval Complexity OT Charge 80980 - Low Complexity PHYSICIAN CERTIFICATION: I certify the specified therapy services for Jose Rosario JR are required, authorized, and reviewed every 30 days.
== END 2024-02-28 23:59 | disposition home or self-care (01) ==
LOC: OT 15:07
PROVIDERS: Visit Provider Nurse Practitioner Family
DX: M25.511 Pain in right shoulder (principal)
CPT/HCPCS: 97014; 97165; G0283

== ENCOUNTER 2024-06-23 12:55 | Outpatient (CLI) | payer OTHER, SELFPAY ==
--- NOTE | 2024-06-23 13:17 | XR_ITS ---
FINAL REPORT CLINICAL HISTORY: RIGHT HIP PAIN, NKI COMPARISON: 01/23/2021 FINDINGS: An AP view of the pelvis and 2 views of the right hip hip were obtained. There is no acute osseous abnormality of the pelvis or right hip. There is degenerative joint disease of both hips. This has progressed since the prior exam. There is no acute soft tissue abnormality.. IMPRESSION: Progressive degenerative joint disease of both hips without acute osseous abnormality. Reviewed, Interpreted and Dictated by María Caballero MD Transcribed by Corinna Pulido Authenticated and [facility]
== END 2024-06-23 23:59 | disposition home or self-care (01) ==
LOC: RAD 13:01
PROVIDERS: PCP Family Medicine; Visit Provider Nurse Practitioner Family
DX: M25.551 Pain in right hip (principal)
CPT/HCPCS: 73502

== ENCOUNTER 2024-10-05 09:02 | Outpatient (CLI) | payer OTHER, SELFPAY ==
--- OUTSIDE RECORDS SUMMARY | 2024-01-06 06:00 | XMS_ITS ---
Author Organization [facility] Address [address] [facility] [address] [place] [id number] Care Team Providers Care Lay Up Operator Name Role Phone Estuardo Jay Tawanda Primary Care Provider AmyNandiniJanee Unavailable [phone] Allergies No Known Allergies Results Component Value [...] 5 - 6.5 % P-Comprehensive Metabolic Pa marcella (CMP) Reviewed date:01/10/2024 12:26:39 PM Interpretation:K+ 5.6 Performing Lab: Notes/Report: Test performed by [facility] [address] [facility] , [address], [place] [address] Cortez Lao MD, Buffer Machine CLIA: [id number] Sodium 139 135-145 mmol/L Potassium 5.6 3.5-5.3 [...] 100 Performing Lab: Notes/Report: Test performed by [facility] [address] , [place] [address] Cortez Lao MD, Buffer Machine CLIA: [id number] Cholesterol 144 <200 mg/dL Triglycerides 100 <150 [...] Interpretation:0.56 Performing Lab: Notes/Report: Test performed by [facility] [address] [place] [address] , [address], [place] [address] Cortez Lao MD, Buffer Machine CLIA: [id number] PSA 0.56 <4.00 ng/mL Please note this is an ultrasensitive PSA assay with a lower limit of detection of 0.014 ng/mL. This test is performed by the [employer] ECLIA methodology. Values obtained with different assay methods or kits cannot be directly compared. P-TSH Reviewed date:01/10/2024 12:27:52 PM Interpretation:5.88 Performing Lab: Notes/Report: Test performed by [facility] [address] [place] [address] , [address], [place] [address] Cortez Lao MD, Buffer Machine CLIA: [id number] TSH 5.88 0.43-5.25 mU/L X ray : [...] Phipps 01/06/2024 10:38:37 AM > faxed to [facility] PT, Tere Phipps 01/22/2024 9:38:28 AM > [...] Problem Status W/U Status Risk Notes Problem Chronic obstructive pulmonary disease, unspecified COPD type (J44.9) Active confirmed Vital Signs Weight 197.2 lbs 01/06/2024 Blood pressure systolic 128 mm Hg 01/06/20 24 Blood pressure diastolic 60 mm Hg 024 Heart Rate 45 /min 01/06/2024 Height 70 in 01/06/2024 BMI 28.29 kg/m2 01/06/2024 Encounters Encounter Location Date Provider Diagnosis [facility] [address] [facility] [address] [place] [id number] 01/06/2024 Janee Reyes Chronic obstructive pulmonary disease, unspecified COPD [...] Reason: Progress Notes * INGRIS GUTIERREZ LDOB:[birth year] (58 yo M)Acc No.[id number]:01/06/2024 Physical Patient: Jay MENDOZAPILI INGRIS Leija Provider: CINDY Boyd :1965 A ge:58 Y S ex:Male Date:01/06/2024 Address:[place], [id number] Pcp:Jay Marte Subjective: * Chief Complaints: * [...] NT/respiratory: c/o cough i mproved. c/o smoking / PPD. Denies : Fever. D enies : [...] by Creatinine 93 >59 - mL/min/1.73m2 * Janee Reyes 01/10/2024 12:26:35 PM > , See encounter [...] AM > no auth required; CPT code [id number] Reyes 01/27/2024 9:17:47 AM > no answer when [...] P SA 0.56 <4.00 - ng/mL * Mendel Reyesine 01/10/2024 12:26:57 PM > , See encounter [...] T riglycerides 100 <150 - mg/dL * Nandini Reyesharine 01/10/2024 12:27:25 PM > , See encounter note 5.?Right shoulder pain? Refill Medrol Tablet Therapy Pack, 4 MG, as directed, orally, daily, 6 days, 1, Refills 0.?Imaging: X ray : Shoulder, right (Performed Date - 01/06/2024)?OA changes* Nandini Reyesharine 01/10/2024 12:12:02 PM > , See encounter note Notes: heat /ice; MDP with food; ROM with the heat; will try PT: Xray?& #160;? Referral To:. Physical Therapy??Physical Therapist ?Reason: 6.?Thyroid disorder screen?LAB: P-TSH (Collection Date & Time - 01/06/2024 09:37 AM)?5.88* Value Reference Range T SH 5.88 H 0.43-5.25 - mU/L * AmyJanee 01/10/2024 12:27:48 PM > , See encounter [...] * Procedure Codes: [address] [place], [address] CAPILLARY BLOOD DRAW, 60057 GLYCATED HEMOGLOBIN TEST, Modifiers: QW , 858[address] CBC WITH AUTO DIFF, 42181 VENIPUNCT, ROUTINE* * Follow Up: w ill notify of test results * Images: Billing Information: * Visit Code: 46925 Office Visit, Est Pt., Level 4. * Procedure Codes: [address] [place]. [address] CAPILLARY BLOOD DRAW. 02497 GLYCATED HEMOGLOBIN TEST. Modifiers: QW 51979 CBC WITH AUTO DIFF. 86604 VENIPUNCT, ROUTINE*. * Electronic signature of Yuly Reyes APRN on 10/05/2024 at 09:08 AM EDT Sign off status: Pending * Provider: CINDY Boyd Date: 1 03/07/2023 Generated for Josh daniels/Rodrigo/eTdavidsmitting on: 0 10/05/2024 09:08 AM EDT History and Physical Notes * [...]
--- OUTSIDE RECORDS SUMMARY | 2024-04-03 11:00 | XMS_ITS ---
Author Organization [facility] Address [address] [facility] [address] [place] [id number] Care Team Providers Care Enamel Applier Name Role Phone Jay Marte Primary Care Provider [phone] Karly Linares [phone] Allergies No Known Allergies REASON FOR VISIT didn't say Social History Tobacco Use: Social History Observation Description Date Details (start date - stop date) Current Smoker NA - NA CURRENT TOBACCO USE: Question Answer Notes Are you a: current smoker Encounters Encounter Location Date Provider Diagnosis [facility] [address] [facility] [address] [place] [phone] 04/03/2024 Karly Linares Plan Of Treatment No Information Progress Notes * INGRIS GUTIERREZ LDOB:[birth year] (58 yo M)Acc No.[id number]:04/03/2024 Progress Notes Patient: INGRIS BLACKMAN Provider: TIM Carlos :1965 A ge:58 Y S ex:Male Date:04/03/2024 Address:[address] [place] [address] [id number] Pcp:Jay Marte Subjective: * Chief Complaints: * 1 . Didn't say. * HPI: H PI: 58 year old male presents with c/o Patient is here today for.? * ROS: R ESPIRATORY: Chest congestion y [...] C affeine: yes, frequency:. Alcohol: No. * Allergies: N .K.D.A. Objective: * Vitals: Assessment: Plan: * Treatment: * Images: Billing Information: * Visit Code: * Procedure Codes: * Electronic signature of TIM Shaffer on 10/05/2024 at 09:08 AM EDT Sign off status: Pending * Provider: TIM Carlos Date: 0 04/03/2024 Generated for Josh daniels/Rodrigo/eTransmitting on: 0 10/05/2024 09:08 AM EDT History and Physical Notes * HPI (History of Present Illness) Category Sub-Category Detail Notes Category Not es HPI Patient is here today for
--- OUTSIDE RECORDS SUMMARY | 2024-06-23 07:15 | XMS_ITS ---
[facility] Organization [facility] [address] [facility] [address] [place] [id number] Care Team Providers Care Associate Financial Planner Name Role Phone Jay Marte Primary Care Provider Janee Reyes Unavailable [phone] Allergies No Known Allergies Results Component Value Reference Range Notes X ray : Hip, right Reviewed date:09/21/2024 08:10:53 AM Interpretation:degemerative joint disease of both hips Performing Lab: Notes/Report: degemerative joint disease of both hips REASON FOR VISIT check up, Needs labs Medications Medication SIG (Take, Route, Frequency, Duration) Notes Start Date End Date Status ALBUTEROL HFA INHALER 200 METERED DOSES/ 8.5GM 2 INHALATIONS QID AND Q2H PRN *Please review for potential replacement for e-prescription and drug interaction check* 07/11/2020 Active Trelegy Ellipta 100-62.5-25 MCG/ACT 1 puff(s) Inhalation once a day 07/19/2021 Active Albuterol Sulfate HFA 108 (90 Base) MCG/ACT 1 puff as needed Inhalation q2h prn 01/06/2024 Active Sildenafil Citrate 25 MG 1 tablet as needed Orally Once a day; Duration: 90 days Active Meloxicam 15 MG 1 tablet Orally Once a day; Duration: 30 days 06/23/2024 Active Social History Tobacco Use: Social History Observation Description Date Details (start date - stop date) Current Smoker NA - NA CURRENT TOBACCO USE: Question Answer Notes Are you a: current smoker Vital Signs Weight 198.6 lbs 06/23/2024 Blood pressure systolic 128 mm Hg 06/24/19 25 Blood pressure diastolic 70 mm Hg 025 Heart Rate 80 /min 06/23/2024 Height 70 in 06/23/2024 BMI 28.49 kg/m2 06/23/2024 Encounters Encounter Location Date Provider Diagnosis [facility] [address] [place] [id number] 06/23/2024 Janee Reyes Acute pain of left hip M25.552 ; Acute right hip pain M25.551 ; Continuous tobacco abuse Z72.0 ; Male erectile disorder N52.9 and BMI 28.0-28.9,adult Z68.28 Assessments Encounter Date Diagnosis (ICD Code) Assessment Notes Treatment Notes Treatment Clinical Notes Section Notes 06/23/2024 Acute pain of left hip (ICD-10 - M25.552) encouraged pt to continue with the walking program 06/23/2024 Acute right hip pain (ICD-10 - M25.551) 06/23/2024 Continuous tobacco abuse (ICD-10 - Z72.0) discussed decreasing tobacco usage; currently smoking and using oral tobacco 06/23/2024 Male erectile disorder (ICD-10 - N52.9) 06/23/2024 BMI 28.0-28.9,adult (ICD-10 - Z68.28) 06/23/2024 Other reviewed 12/2023 labs; will repeat in 2 months with FU Plan Of Treatment Medication Medication Name Sig Start Date Stop Date Notes Sildenafil Citrate 25 MG 1 tablet as nee ded Orally Once a day; Duration: 90 days Meloxicam 15 MG 1 tablet Orally Once a day; Duration: 30 days 06/23/2024 Treatment Notes Assessment Notes Acute pain of left hip encouraged pt to continue with the walking program Continuous tobacco abuse discussed decre asing tobacco usage; currently smoking and using oral tobacco Other reviewed 12/2023 lab s; will repeat in 2 months with FU Pending Test Test Name Order Date X ray : Hip, left 06/23/2024 Next Appt Details Follow Up: 2 Months,and prn, Reason: Progress Notes * INGRIS GUTIERREZ LDOB:[birth year] (58 yo M)Acc No.[id number]:06/23/2024 Progress Notes Patient: INGRIS BLACKMAN Provider: CINDY Boyd :1965 A ge:58 Y S ex:Male Date:06/23/2024 Address:[address] [place], [place] [address], [id number] Pcp:Jay Marte Subjective: * Chief Complaints: * 1 . Check up. 2. Needs labs. * HPI: H PI: has been walking 2 miles daily as part of the recovery program; is hard to walk up stairs; currently in recovery for pain pills and on parol for sadi marino; Living at the [facility] in [facility]. Patient is here today for a check up and is due for labs. Pt sts that he does need some refills as well. E NT/respiratory: COPD P t sts that he is being treated by a school bus driver at [facility], he sees Dr. Fuentes phone number is [phone] and fax is [phone].? R heumatology: c/o joint pain P t sts that he is having a lot of pain in the joints and c/o difficulty getting around due to hip pain. * ROS: R ESPIRATORY: Shortness of breath y es, g radually getting worse.?Chest congestion y es. C ough y es. C ARDIOLOGY: no C hest pain. n o L eg edema. S hortness of breath y es. G ASTROENTEROLOGY: Positive for e ating well. N ausea y es. n o?Vomiting. D iarrhea y es. M USCULOSKELETAL: Joint pain y es, b ilateral hips. * Medical History: C OPD, Tobacco abuse, History of adenomatous colon polyps -followed by Dr. Patterson. * Surgical History: l eft knee surgery , Colonoscopy . * Hospitalization/Major Diagno stic Procedure: H [facility]-SOA 01/04, H-Pneumonia 05/08/18. * Family History: F ather: alive [...] and drug interaction check*, Taking Sildenafil Citrate 25 MG Tablet 1 tablet as needed Orally Once a day , Taking Albuterol Sulfate HFA 108 (90 Base) MCG/ACT Aerosol Solution 1 puff as needed Inhalation q2h prn , Taking Trelegy Ellipta 100-62.5-25 MCG/ACT Aerosol Powder Breath Activated 1 puff(s) Inhalation once a day , Discontinued Medrol 4 MG Tablet Therapy Pack as directed orally daily , Medication List reviewed and reconciled with the patient * Allergies: N .K.D.A. Objective: * Vitals: W t: 198.6, Temp: 98.1, BP: 128/70, HR: 80, Nurse: YAJAIRA, Ht: 70, BMI:28.49. * Examination: G eneral Examination: General Appearance: N AD , appears healthy , alert , well nourished and hydrated. H EENT: s clera and conjunctiva clear, PERRLA, TM's normal, translucent. O ral cavity: m ucosa moist and WNL , no erythema. N paige: s upple , no lymphadenopathy , thyroid normal , no carotid bruits. H eart: R RR. L ungs: C TAB A&P.?Neurologic Exam: a lert and oriented. E xtremities: n o leg edema. ? Assessment: * Assessment: 1. A cute pain of left hip - M25.552 (Primary) 2 . A cute right hip pain - M25.551 3 . C ontinuous tobacco abuse - Z72.0 4 . M trixie erectile disorder - N52.9 5 . B MO 28.0-28.9,adult - Z68.28 Plan: * Treatment: Notes: encouraged pt to continue with the walking program??2.?Acute right hip pain?Imaging: X ray : Hip, right (Performed Date - 06/23/2024)?degemerative joint disease of both hips* Joann Hollis 06/23/2024 12 :57:14 PM > order Janee King 06/25/2024 03:54:07 PM >no answer when Janee Becker 07/02/2024 03:27:58 PM >no answer when Janee Bekcer 07/03/2024 02:55:22 PM >no answer when Mendel Beckerine 07/23/2024 06:05:41 PM EDT > no answer when telephoned ; no way to leave Mendel Tinajeroine 09/21/2024 08:04:45 AM EDT ># not reachable; blue card sent 3.?Continuous tobacco abuse? Notes: discussed decreasing tobacco usage; currently smoking and using oral tobacco??4.?Male erectile disorder? Refill Sildenafil Citrate Tablet, 25 MG, 1 tablet as needed, Orally, Once a day, 90 days, 90, Refills 1.??5.?Others? Notes: reviewed 12/2023 labs; will repeat in 2 months with FU?? * Procedure Codes: 3 074F SYST BP LT 130 MM HG, 3078F DIAST BP < 80 MM HG * Follow Up: 2 Months,and prn * Images: Billing Information: * Visit Code: 10032 Office Visit, Est Pt., Level 4. * Procedure Codes: 3074F SYST BP LT 130 MM HG. 3078F DIAST BP < 80 MM HG. * Electronic signature of Yuly Reyes APRN on 10/05/2024 at 09:08 AM EDT Sign off status: Pending * Provider: CINDY Boyd Date: 0 06/23/2024 Generated for Josh Burnett/George on: 0 10/05/2024 09:08 AM EDT History and Physical Notes * HPI (History of Present Illness) Category Sub-Category Detail Notes Category Not es ENT/respiratory COPD Pt sts that he i s being treated by a school bus driver at [facility], he sees Dr. Fuentes phone number is [phone] and fax is [phone] Rheumatology joint pain Pt sts that he i s having a lot of pain in the joints and c/o difficulty getting around due to hip pain HPI Patient is here toda y for a check up and is due for labs. Pt sts that he does need some refills as well Examination Category Sub-Category Detail Notes Category Not es General Examination HEENT: sclera and c onjunctiva clear, PERRLA, TM's normal, translucent Heart: RRR Lungs: CTAB A&P Extremities: no leg edema General Appearance: NAD , appears health y , alert , well nourished and hydrated Neurologic Exam: alert and oriented Neck: supple , no lymphade nopathy , thyroid normal , no carotid bruits Oral cavity: mucosa moist and WNL , no erythema
--- OUTSIDE RECORDS SUMMARY | 2024-08-11 13:00 | XMS_ITS | Encounter Summary ---
Author Organization Healthcare Address [address] [place] [address] Care Team Providers Care Epoxy Coatings Installer Name Role Phone Pcp, No Primary Care Provider Unavailabl e Encounter Details Date Type Department Care Team (Latest Contact Info) Description 08/11/2024 1:00 PM EDT Office Visit [facility] [address] [place] [address] Stage 3 severe COPD by GOLD classification (CMS/HCC) (Primary Dx) Social History Tobacco Use Types Packs/Day Years Used Date Smoking Tobacco: Some Days Cigarettes Smokeless Tobacco: Current Sex and Gender Information Value Date Recorded Sex Assigned at Not on file Legal Sex Male 8:53 PM EDT Gender Identity Not on file Sexual Orientation Not on file documented as of this encounter Last Filed Vital Signs Vital Sign Reading Time Taken Comments Blood Pressure - - Pulse - - Temperature - - Respiratory Rate - - Oxygen Saturation - - Inhaled Oxygen Concentration - - Weight 100 kg (221 lb 5.5 oz) 08/11/2024 2:00 PM EDT Height - - Body Mass Index 29.2 07/23/2024 1:27 PM EDT documented in this encounter Miscellaneous Notes * Progress Notes - Carlos Manrique RN - 08/11/2024 1:00 PM EDT Pulmonary Rehab Daily Note Patient Name: Jose Rosario Today's Date: 08/11/2024 General General Time In: 1250 Time Out: 1420 Family/Caregiver Present: No Visit Number: 5 Physician on Site: Krishna Ceron MD Pain: 0 Weight: 100 kg (221 lb 5.5 oz) Vital Signs Resting Vital Signs SpO2: 92 % Pulse: 88 Supplemental Oxygen : Room Air BP: 118/68 Dyspnea Index: 2 Falls: no Meds Taken: yes Meds Changed: no Breathing Assessment Breathing Assessment Breathing Assessment: Clear bilaterally Exercise Exercise Modalities Treadmill: Yes Recumbent Stepper : Yes Weights: Yes Treadmill Exercise Speed: 2 mph Grade: 5.5 % Time: 20 Minutes Distance: .53 METS: 3.66 Exercise SpO2: 92 Exercise HR: 110 Supplemental Oxygen : Room Air Exercise Dyspnea: 2 Rate of Perceived Exertion: 2 Signs & Symptoms: Pt tolerated exercise well Seated Stepper Resistance Level: 5-7 Steps per Minute: 110 Time: 20 Minutes Total Steps: 1770 Steps METS: 5.23 Exercise SPO2: 91 Exercise Heart Rate: 103 Supplemental Oxygen : Room Air Exercise BP: 140/64 Exercise Dyspnea: 2 Rate of Percieved Exertion: 2 Signs and Symptoms: Pt tolerated exercise well Weights Exercise Sets: combo Reps: 10 Weight: 8 lbs Time: 10 Minutes Exercise SpO2: 92 Exercise HR: 96 Supplemental Oxygen: Room air Exercise Dyspnea: 3 Rate of Perceived Exertion: 2 Signs and Symptoms: Pt tolerated exercise well Cool Down Cool Down Exercises Cool Down Exercises: 10 min Post-Activity Vital Signs Post-Activity Vital signs SpO2: 92 % Pulse: 89 Supplemental Oxygen : Room Air BP: 112/62 Dyspnea Index: 2 Educational Classes/20 Minutes Inhaled medications-MW Handout given documented in this encounter Plan of Treatment Upcoming Encounters Date Type Department Care Team (Late st Contact Info) Description 10/29/2024 1:40 PM EDT Office Visit [facility] Endocrinology [address] [place] [phone] Karina Doan MD [address] [facility] [address] [place] [phone] documented as of this encounter Visit Diagnoses Diagnosis Stage 3 severe COPD by GOLD classification (CMS/HCC)- Primary documented in this encounter Additional Health Concerns Infection Onset Date Last Indicated Resolved Time Rhinovirus 07/22/2024 07/22/2024 Assessment Noted Time A Body Mass Index follow-up plan has been documented for the patient 08/11/2024 2:21 PM EDT documented as of this encounter Care Teams Epoxy Coatings Installer Relationship Specialty Start Date End Date Pcp, No [address] [place] [address] PCP - General Family Medicine 07/21/24 documented as of this encounter
--- OUTSIDE RECORDS SUMMARY | 2024-08-13 13:00 | XMS_ITS | Encounter Summary ---
Author Organization Healthcare Address [address] [place] [address] Care Team Providers Care Mark Up Designer Name Role Phone Pcp, No Primary Care Provider Unavailabl e Encounter Details Date Type Department Care Team (Latest Contact Info) Description 08/13/2024 1:00 PM EDT Office Visit [facility] [address] [place] [address] Stage 3 severe COPD by GOLD classification (CMS/HCC) (Primary Dx) Social History Tobacco Use Types Packs/Day Years Used Date Smoking Tobacco: Some Days Cigarettes Smokeless Tobacco: Current Sex and Gender Information Value Date Recorded Sex Assigned at Not on file Legal Sex Male 8:53 PM EDT Gender Identity Not on file Sexual Orientation Not on file documented as of this encounter Miscellaneous Notes * Progress Notes - Carlos Manrique RN - 08/13/2024 1:00 PM EDT Pulmonary Rehab Daily Note Patient Name: Jose Rosario Today's Date: 08/13/2024 General General Time In: 1250 Time Out: 1420 Family/Caregiver Present: No Visit Number: 6 Physician on Site: Kemal Ceron MD Pain: 0 Vital Signs Resting Vital Signs SpO2: 91 % Pulse: 89 Supplemental Oxygen : Room Air BP: 122/76 Dyspnea Index: 2 Falls: no Meds Taken: yes Meds Changed: no Breathing Assessment Breathing Assessment Breathing Assessment: Clear bilaterally Exercise Exercise Modalities Treadmill: Yes UBE: Yes Weights: Yes Treadmill Exercise Speed: 2 mph Grade: 6.5 % Time: 20 Minutes Distance: 0.54 METS: 4.29 Exercise SpO2: 93 Exercise HR: 111 Supplemental Oxygen : Room Air Exercise Dyspnea: 2 Rate of Perceived Exertion: 2 Signs & Symptoms: Pt tolerated exercise well Upper Body Ergometer Resistance: 4-5 Revolutions per Minute: 46 Time: 20 Distance: 2.92 METS: 3.5 Exercise SPO2: 92 Exercise HR: 105 Supplemental Oxygen: Room air Exercise BP: 130/78 Exercise Dyspnea: 2 Rate of Percieved Exertion: 3 Signs and Symptoms: Pt tolerated exercise well Weights Exercise Sets: 3 Reps: 10 Weight: 10 lbs Time: 10 Minutes Exercise SpO2: 92 Exercise HR: 104 Supplemental Oxygen: Room air Exercise Dyspnea: 2 Rate of Perceived Exertion: 2 Signs and Symptoms: Pt tolerated exercise well Cool Down Cool Down Exercises Cool Down Exercises: 10 min Post-Activity Vital Signs Post-Activity Vital signs SpO2: 91 % Pulse: 90 Supplemental Oxygen : Room Air BP: 132/82 Dyspnea Index: 2 Educational Classes/20 Minutes Pulmonary medications-MW Handout given documented in this encounter Plan of Treatment Upcoming Encounters Date Type Department Care Team (Late st Contact Info) Description 10/29/2024 1:40 PM EDT [facility] [address] [place] [phone] Karina Doan MD [address] [address] documented as of this encounter Visit Diagnoses Diagnosis Stage 3 severe COPD by GOLD classification ([facility])- Primary documented in this encounter Additional Health Concerns Infection Onset Date Last Indicated Resolved Time Rhinovirus 07/22/2024 07/22/2024 Assessment Noted Time A Body Mass Index follow-up plan has been documented for the patient 08/13/2024 2:22 PM EDT documented as of this encounter Care Teams Mark Up Designer Relationship Specialty Start Date End Date Pcp, [place] [address] PCP - General Family Medicine 07/21/24 documented as of this encounter
--- OUTSIDE RECORDS SUMMARY | 2024-08-18 13:00 | XMS_ITS | Encounter Summary ---
Author Organization Healthcare Address [address] [place] [address] Care Team Providers Care Sapphire Stylus Grinder Name Role Phone Pcp, No Primary Care Provider Unavailabl e Encounter Details Date Type Department Care Team (Latest Contact Info) Description 08/18/2024 1:00 PM EDT Office Visit [facility] [address] [place] [address] Stage 3 severe COPD by [...] - Inhaled Oxygen Concentration - - Weight 102 kg (225 lb 15.5 oz) 08/18/2024 2:00 P M EDT Height - - Body Mass Index 29.81 07/23/2024 1:27 PM EDT documented in this encounter Miscellaneous Notes * Progress Notes - Carlos Manrique RN - 08/18/2024 1:00 PM EDT Pulmonary Rehab Daily Note Patient Name: Jose Rosario Today's Date: 08/18/2024 General General Time In: 1250 Time Out: 1420 Family/Caregiver Present: No Visit Number: 7 Physician on Site: Krishna Ceron MD Pain: 0 Weight: 102 kg (225 lb 15.5 oz) Vital Signs Resting Vital Signs SpO2: 92 % Pulse: 91 Supplemental Oxygen : Room Air BP: 120/66 Dyspnea Index: 0.5 Falls: no Meds Taken: yes Meds Changed: no Breathing Assessment Breathing Assessment Breathing Assessment: Clear bilaterally Exercise Exercise Modalities Treadmill: Yes Recumbent Stepper : Yes Weights: Yes Treadmill Exercise Speed: 2.2 mph Grade: 6.5 % Time: 20 Minutes Distance: 0.62 METS: 4.61 Exercise SpO2: 92 Exercise HR: 125 Supplemental Oxygen : Room Air Exercise Dyspnea: 3 Rate of Perceived Exertion: 2 Signs & Symptoms: Pt tolerated exercise well Seated Stepper Resistance Level: 6-8 Steps per Minute: 106 Time: 20 Minutes Total Steps: 1704 Steps METS: 5.77 Exercise SPO2: 94 Exercise Heart Rate: 114 Supplemental Oxygen : Room Air Exercise BP: 128/60 Exercise Dyspnea: 2 Rate of Percieved Exertion: 2 Signs and Symptoms: Pt tolerated exercise well Weights Exercise Sets: 3 Reps: 12 Weight: 10 lbs Time: 10 Minutes Exercise SpO2: 93 Exercise HR: 79 Supplemental Oxygen: Room air Exercise Dyspnea: 2 Rate of Perceived Exertion: 2 Signs and Symptoms: Pt tolerated exercise well Cool Down Cool Down Exercises Cool Down Exercises: 10 min Post-Activity Vital Signs Post-Activity Vital signs SpO2: 93 % Pulse: 87 Supplemental Oxygen : Room Air BP: 114/64 Dyspnea Index: 1 Educational Classes/20 Minutes Stress management/relaxation (meditation)-CS Handout given documented in this encounter Plan of Treatment Upcoming Encounters Date Type Department Care Team (Late st Contact Info) Description 10/29/2024 1:40 PM EDT Office Visit [facility] Endocrinology [address] [place] [phone] Karina Doan MD [address] [place] [phone] documented as of this encounter Visit Diagnoses Diagnosis Stage 3 severe COPD by GOLD classification (CMS/HCC)- Primary documented in this encounter Additional Health Concerns Infection Onset Date Last Indicated Resolved Time Rhinovirus 07/22/2024 07/22/2024 Assessment Noted Time A Body Mass Index follow-up plan has been documented for the patient 08/18/2024 2:22 PM EDT documented as of this encounter Care Teams Sapphire Stylus Grinder Relationship Specialty Start Date End Date Pcp, Lottie [address] [place] [address] PCP - General Family Medicine 07/21/24 documented as of this encounter
--- OUTSIDE RECORDS SUMMARY | 2024-08-20 10:30 | XMS_ITS | Encounter Summary ---
Author Organization Healthcare Address [address] [place] [address] Care Team Providers Care Tempering Oven Operator Name Role Phone Pcp, No Primary Care Provider Unavailabl e Encounter Details Date Type Department Care Team (Latest Contact Info) Description 08/20/2024 10:30 AM EDT Office Visit [facility] [address] [place] [address] Stage 3 severe COPD by [...] Progress Notes - Carlos Manrique RN - 08/20/2024 10:30 AM EDT Pulmonary Rehab Daily Note Patient Name: Jose Rosario Today's Date: 08/20/2024 General General Time In: 1020 Time Out: 1140 Family/Caregiver Present: No Visit Number: 8 Physician on Site: Veronica Redmond APRN Pain: 0 Vital Signs Resting Vital Signs SpO2: 96 % Pulse: 69 Supplemental Oxygen : Room Air BP: 112/70 Dyspnea Index: 1 Falls: no Meds Taken: no (Pt forgot, will take immediately upon arriving home) Meds Changed: no Breathing Assessment Breathing Assessment Breathing Assessment: Clear bilaterally Exercise Exercise Modalities Treadmill: Yes Recumbent Stepper : Yes Weights: Yes Treadmill Exercise Speed: 2.5 mph Grade: 7.5 % Time: 20 Minutes Distance: 0.83 METS: 5.45 Exercise SpO2: 94 Exercise HR: 105 Supplemental Oxygen : Room Air Exercise BP: 136/60 Exercise Dyspnea: 2 Rate of Perceived Exertion: 2 Signs & Symptoms: Pt tolerated exercise well Seated Stepper Resistance Level: 6-7 Steps per Minute: 149 Time: 20 Minutes Total Steps: 1604 Steps METS: 6.34 Exercise SPO2: 91 Exercise Heart Rate: 109 Supplemental Oxygen : Room Air Exercise Dyspnea: 2 Rate of Percieved Exertion: 2 Signs and Symptoms: Pt tolerated exercise well Weights Exercise Sets: 3 Reps: 15 Weight: 10 lbs Time: 10 Minutes Exercise SpO2: 93 Exercise HR: 103 Supplemental Oxygen: Room air Exercise Dyspnea: 3 Rate of Perceived Exertion: 3 Signs and Symptoms: Pt tolerated exercise well Cool Down Cool Down Exercises Cool Down Exercises: 10 min Post-Activity Vital Signs Post-Activity Vital signs SpO2: 94 % Pulse: 100 Supplemental Oxygen : Room Air BP: 116/58 Dyspnea Index: 2 Educational Classes/20 Minutes everyday activities/exercise (ADLs)-CS Handout given documented in this encounter Plan of Treatment Upcoming Encounters Date Type Department Care Team (Late st Contact Info) Description 10/29/2024 1:40 PM EDT Office Visit [facility] Endocrinology [address] [place] [address] Karina Doan MD [address] [place] [id number] documented as of this encounter Visit Diagnoses Diagnosis Stage 3 severe COPD by GOLD classification (CMS/[facility])- Primary documented in this encounter Additional Health Concerns Infection Onset Date Last Indicated Resolved Time Rhinovirus 07/22/2024 07/22/2024 Assessment Noted Time A Body Mass Index follow-up plan has been documented for the patient 08/20/2024 11:40 AM EDT documented as of this encounter Care Teams Tempering Oven Operator Relationship Specialty Start Date End Date Pcp, [place] [address] PCP - General Family Medicine 07/21/24 documented as of this encounter
--- OUTSIDE RECORDS SUMMARY | 2024-08-25 13:00 | XMS_ITS | Encounter Summary ---
Author Organization Healthcare Address [address] [place] [address] Care Team Providers Care Sweatband Shaper Name Role Phone Pcp, No Primary Care Provider Unavailabl e Encounter Details Date Type Department Care Team (Late st Contact Info) Description 08/25/2024 1:00 PM EDT Office Visit [facility] [address] [place] [address] Chronic obstructive pulmonary disease, unspecified COPD type (CMS/HCC) (Primary Dx) Social History Tobacco Use [...] - Inhaled Oxygen Concentration - - Weight 103 kg (227 lb 1.2 oz) 08/25/2024 1:00 PM EDT Height 185.4 cm (6' 1 ) 08/25/2024 1:00 PM EDT Body Mass Index 29.96 08/25/2024 1:00 PM EDT documented in this encounter Miscellaneous Notes * Progress Notes - Deysi Munoz - 08/25/2024 1:00 PM EDT Pulmonary Rehab Daily Note Patient Name: Jose Rosario Today's Date: 08/25/2024 General General Time In: 1250 Time Out: 1420 Visit Number: 9 Physician on Site: Krishna Ceron MD Height: 185.4 cm (6' 1 ) Weight: 103 kg (227 lb 1.2 oz) Vital Signs Resting Vital Signs SpO2: 94 % Pulse: 72 Supplemental Oxygen : Room Air BP: 122/68 Dyspnea Index: 2 Falls: 0 Meds Taken: yes Meds Changed: no Breathing Assessment Breathing Assessment: Clear bilaterally Exercise Exercise Modalities Treadmill Exercise Speed: 3.4 mph Grade: 2 % Time: 20 Minutes Distance: 1.07 METS: 4.47 (Peal METS: 5) Exercise SpO2: 92 Exercise HR: 104 Supplemental Oxygen : Room Air Exercise BP: 140/50 Exercise Dyspnea: 2 Rate of Perceived Exertion: 2 Pt tolerated exercise with increased speed Seated Stepper Resistance Level: 7-8 Steps per Minute: 110 Time: 20 Minutes Total Steps: 1610 Steps METS: 5.56 Exercise SPO2: 92 Exercise Heart Rate: 126 Supplemental Oxygen : Room Air Exercise BP: 172/66 Exercise Dyspnea: 3 Rate of Percieved Exertion: 3 Pt tolerated exercise with increased RPE Weights Exercise Sets: 1 Reps: 10 Weight: 10 lbs Time: 10 Minutes Exercise SpO2: 93 Exercise HR: 105 Supplemental Oxygen: Room air Exercise Dyspnea: 3 Rate of Perceived Exertion: 4 Pt tolerated exercise well Cool Down Cool Down Exercises: 10 min Post-Activity Vital Signs Post-Activity Vital signs SpO2: 94 % Pulse: 93 Supplemental Oxygen : Room Air BP: 112/58 Dyspnea Index: 2 Educational Classes/20 Minutes Nutrition Part 1 (AN) documented in this encounter Plan of Treatment Upcoming Encounters Date Type Department Care Team (Late st Contact Info) Description 10/29/2024 1:40 PM EDT Office Visit [facility] Endocrinology [address] [place] [address] Karina Doan MD [address] [address] documented as of this encounter Visit Diagnoses Diagnosis Chronic obstructive pulmonary disease, unspecified COPD type (CMS/HCC)- Primary documented in this encounter Additional Health Concerns Infection Onset Date Last Indicated Resolved Time Rhinovirus 07/22/2024 07/22/2024 Assessment Noted Time A Body Mass Index follow-up plan has been documented for the patient 08/25/2024 3:18 PM EDT documented as of this encounter Care Teams Sweatband Shaper Relationship Specialty Start Date End Date Pcp, [place] [address] PCP - General Family Medicine 07/21/24 documented as of this encounter
--- OUTSIDE RECORDS SUMMARY | 2024-09-01 13:00 | XMS_ITS | Encounter Summary ---
Author Organization Healthcare Address [address] [place] [address] Care Team Providers Care Mechanical Engineering Coop Name Role Phone Pcp, No Primary Care Provider Unavailabl e Encounter Details Date Type Department Care Team (Late st Contact Info) Description 09/01/2024 1:00 PM EDT Office Visit [facility] [address] [place] [address] Chronic obstructive pulmonary disease, unspecified [...] - Inhaled Oxygen Concentration - - Weight 105 kg (231 lb 0.7 oz) 09/01/2024 2:00 PM EDT Height - - Body Mass Index 30.48 08/25/2024 1:00 PM EDT documented in this encounter Miscellaneous Notes * Progress Notes - Carlos Manrique RN - 09/01/2024 1:00 PM EDT Pulmonary Rehab Daily Note Patient Name: Jose Rosario Today's Date: 09/01/2024 General General Time In: 1250 Time Out: 1415 Family/Caregiver Present: No Visit Number: 10 Physician on Site: Krishna Ceron MD Pain: 0 Weight: 105 kg (231 lb 0.7 oz) Vital Signs Resting Vital Signs SpO2: 94 % Pulse: 96 Supplemental Oxygen : Room Air BP: 108/70 Dyspnea Index: 3 Falls: no Meds Taken: yes Meds Changed: no Breathing Assessment Breathing Assessment Breathing Assessment: Clear bilaterally Exercise Exercise Modalities Treadmill: Yes UBE: Yes Weights: Yes Treadmill Exercise Speed: 2.6 mph Grade: 6 % Time: 20 Minutes Distance: 0.82 METS: 5.34 Exercise SpO2: 93 Exercise HR: 126 Supplemental Oxygen : Room Air Exercise Dyspnea: 3 Rate of Perceived Exertion: 3 Signs & Symptoms: Pt tolerated exercise well Upper Body Ergometer Resistance: 4-6 Revolutions per Minute: 61 Time: 20 Distance: 3.54 METS: 5.6 Exercise SPO2: 92 Exercise HR: 135 Supplemental Oxygen: Room air Exercise BP: 164/78 Exercise Dyspnea: 4 Rate of Percieved Exertion: 4 Signs and Symptoms: Pt tolerated exercise well Weights Exercise Sets: 1 Reps: 10 Weight: 10 lbs Time: 10 Minutes Exercise SpO2: 93 Exercise HR: 113 Supplemental Oxygen: Room air Exercise Dyspnea: 3 Rate of Perceived Exertion: 3 Signs and Symptoms: Pt tolerated exercise well Cool Down Cool Down Exercises Cool Down Exercises: 10 min Post-Activity Vital Signs Post-Activity Vital signs SpO2: 93 % Pulse: 103 Supplemental Oxygen : Room Air BP: 126/78 Dyspnea Index: 2 Educational Classes/20 Minutes Oxygen-MW Handout given documented in this encounter Plan of Treatment Upcoming Encounters Date Type Department Care Team (Late st Contact Info) Description 10/29/2024 1:40 PM EDT Office Visit [facility] Endocrinology [address] [place] [address] Karina Doan MD [address] [facility] [address] [place] [phone] documented as of this encounter Visit Diagnoses Diagnosis Chronic obstructive pulmonary disease, unspecified COPD type (CMS/HCC)- Primary documented in this encounter Additional Health Concerns Infection Onset Date Last Indicated Resolved Time Rhinovirus 07/22/2024 07/22/2024 Assessment Noted Time A Body Mass Index follow-up plan has been documented for the patient 09/01/2024 2:25 PM EDT documented as of this encounter Care Teams Mechanical Engineering Coop Relationship Specialty Start Date End Date Pcp, No [address] [place] [address] PCP - General Family Medicine 07/21/24 documented as of this encounter
--- NOTE | 2024-10-05 09:05 | XR_ITS ---
FINAL REPORT CLINICAL HISTORY: left hip pain COMPARISON: None FINDINGS: LEFT HIP: 3 views of the left hip demonstrate no acute fracture or dislocation. Mild hypertrophic changes of the left hip joint are present, with the visualized bony structures are well aligned. There is a bony spur projecting from the inferior femoral head. No soft tissue abnormality is seen. IMPRESSION: Mild degenerative change, with no acute bony abnormality. Reviewed, Interpreted and Dictated by Matti Young MD Transcribed by Jaycee Bailey Authenticated and [facility]
--- NOTE | 2024-10-05 09:05 | XR_ITS ---
FINAL REPORT CLINICAL HISTORY: right hip pain COMPARISON: None FINDINGS: RIGHT HIP Two views of the right hip demonstrate no acute fracture or dislocation. Minimal hypertrophic changes noted in the acetabular margin. The visualized bony structures are well aligned. No soft tissue abnormality is seen. IMPRESSION: Minimal hypertrophic changes, with no acute bony abnormality. Reviewed, Interpreted and Dictated by Matti Young MD Transcribed by Jaycee Bailey Authenticated and [facility]
--- OUTSIDE RECORDS SUMMARY | 2024-10-05 09:09 | XMS_ITS | Encounter Summary ---
Author Organization [facility] Address [address] [place] [address] Care Team Providers Care Hot Cell Technician Name Role Phone Pcp, No Primary Care Provider Unavailabl e Encounter Details Date Type Department Care Team (Latest Contact Info) Description 09/01/2024 Travel Social History Tobacco Use Types Packs/Day Years Used Date Smoking Tobacco: Some Days Cigarettes Smokeless Tobacco: Current Sex and Gender Information Value Date Recorded Sex Assigned at Not on file Legal Sex Male 8:53 PM EDT Gender Identity Not on file Sexual Orientation Not on file documented as of this encounter Plan of Treatment Upcoming Encounters Date Type Department Care Team (Late st Contact Info) Description 10/29/2024 1:40 PM EDT Office Visit [facility] Endocrinology [address] [place] [address] Karina Doan MD [address] [place] [address] documented as of this encounter Visit Diagnoses Not on filedocumented in this encounter Additional Health Concerns Infection Onset Date Last Indicated Resolved Time Rhinovirus 07/22/2024 07/22/2024 Assessment Noted Time A Body Mass Index follow-up plan has been documented for the patient 09/01/2024 2:25 PM EDT documented as of this encounter Care Teams Hot Cell Technician Relationship Specialty Start Date End Date Pcp, Lottie [address] [place] [address] PCP - General Family Medicine 07/21/24 documented as of this encounter
--- OUTSIDE RECORDS SUMMARY | 2024-10-05 09:09 | XMS_ITS | Patient Health Record ---
Author Organization [employer] [place] Address [address] [place] [address] Care Team Providers Care Director Communications Name Role Phone Batsheva Silveira Primary Care Provider Allergies No Known Allergies Reason For Referral No Information Medications Medication SIG (Take, Route, Fr equency, Duration) Notes Start Date End Date Status Flomax Active Vistaril Active Melatonin 5 MG 1 tablet at bedtime as needed Orally Once a day Active Vivitrol 380 MG 4 ml Intramuscular m onthly; Duration: 28 days 05/16/2022 Active Epclusa 400-100 MG 1 tablet Orally Once a day; Duration: 84 days 04/26/2022 Active Trelegy Ellipta Acti [...] daily (4 points) Points 12 Interpretation Positive Section Notes: Some college education. Service. Hx of tattoos, piercings Some college education. Service. Hx of tattoos, piercings Some college education. Service. Hx of tattoos, piercings Some college education Some college education. Service. Hx of tattoos, piercings Some college education. Service. Hx of tattoos, piercings Some college education. Service. Hx of tattoos, piercings Problems Problem Type SNOMED Code ICD Code Onset Dates Problem Status W/U Status Risk Notes Problem Chronic hepatitis C (343899558) Chronic viral hepatitis C (B18.2) Active confirmed Problem Uncomplicated alcohol dependence (F10.20) Active confirmed Problem Substance use disorder (3911672888) Substance use disorder (F19.90) Active confirmed Problem Alcohol use disorder (4364364090) Alcohol use disorder (F10.90) Active confirmed Plan Of Treatment No Information Insurance Providers Payer Name Payer Address Payer Phone Subscriber Number Group Number Insured Name Patient Relationship to Insured Coverage Start Date Coverage End Date [employer] [facility] [address] [place], [place] [id number] [phone] [id number] Shreya wolf Jose Self - patient is the insured 3 Medical (General) History Medical History History ICD Code copd benign prostatic hyperplasia (BPH) Alcohol use disorder F10.90 Chronic viral hepatitis C B18.2 Substance use disorder F19.90 Insomnia, unspecified G47.00 Surgical History Surgery Date(Month/Year) left knee arthroscopy 2002 Right testicular mass 2021
--- OUTSIDE RECORDS SUMMARY | 2024-10-05 09:09 | XMS_ITS | Encounter Summary ---
Author Organization [facility] Address [address] [place] [address] Care Team Providers Care Asthma Educator Name Role Phone Pcp, No Primary Care Provider Unavailabl e Encounter Details Date Type Department Care Team (Latest Contact Info) Description 08/20/2024 Travel Social History Tobacco Use Types Packs/Day [...] 1:40 PM EDT Office Visit [facility] Endocrinology [address] [place] [address] Karina Doan MD [address] [place] [address] documented as of this encounter Visit Diagnoses Not on filedocumented in this encounter Additional Health Concerns Infection Onset Date Last Indicated Resolved Time Rhinovirus 07/22/2024 07/22/2024 Assessment Noted Time A Body Mass Index follow-up plan has been documented for the patient 08/20/2024 11:40 AM EDT documented as of this encounter Care Teams Asthma Educator Relationship Specialty Start Date End Date Pcp, Lottie [address] [place] [address] PCP - General Family Medicine 07/21/24 documented as of this encounter
--- OUTSIDE RECORDS SUMMARY | 2024-10-05 09:09 | XMS_ITS | Encounter Summary ---
Author Organization [facility] Address [address] [place] [address] Care Team Providers Care Window Shade Ring Coverer Name Role Phone Pcp, No Primary Care Provider Unavailabl e Encounter Details Date Type Department Care Team (Late st Contact Info) Description 07/24/2024 Results Follow-Up [facility] Endocrinology [address] [place] [address] Karina Doan MD [address] [address] Social History Tobacco Use Types Packs/Day Years Used Date Smoking Tobacco: Some Days Cigarettes Smokeless Tobacco: Current Sex and Gender Information Value Date Recorded Sex Assigned at Not on file Legal Sex Male 8:53 PM EDT Gender Identity Not on file Sexual Orientation Not on file documented as of this encounter Plan of Treatment Upcoming Encounters Date Type Department Care Team (Late Contact Info) Description 10/29/2024 1:40 PM EDT Office Visit [facility] Endocrinology [address] [place] [address] Karina Doan MD [address] [address] documented as of this encounter Visit Diagnoses Not on filedocumented in this encounter Additional Health Concerns Infection Onset Date Last Indicated Resolved Time Rhinovirus 07/22/2024 07/22/2024 Assessment Noted Time A Body Mass Index follow-up plan has been documented for the patient 07/29/2024 6:22 PM EDT documented as of this encounter Care Teams Window Shade Ring Coverer Relationship Specialty Start Date End Date Pcp, No [address] [place] [address] PCP - General Family Medicine 07/21/24 documented as of this encounter
--- OUTSIDE RECORDS SUMMARY | 2024-10-05 09:09 | XMS_ITS | Patient Health Record ---
[facility] Address [address] [facility] [address] [place] [phone] Care Team Providers Care Apparel Stock Checker Name Role Phone EstuardoJay Primary Care Provider Janee Reyes Unavailable [phone] Karly Linares Unavailable [phone] Allergies No Known Allergies Results Component Value [...] 5.6 Performing Lab: Notes/Report: Test performed by [facility] , [address], [place] [address] Cortez Lao MD, Landscaping Supervisor CLIA: [id number] Sodium 139 135-145 mmol/L Potassium 5.6 3.5-5.3 [...] 100 Performing Lab: Notes/Report: Test performed by [facility], [address] , [address], [place] [address] Cortez Lao MD, Landscaping Supervisor CLIA: [id number] Cholesterol 144 <200 mg/dL Triglycerides 100 <150 [...] Interpretation:0.56 Performing Lab: Notes/Report: Test performed by [facility] [address] [place] [address] , [address], [place] [address] Cortez Lao MD, Landscaping Supervisor CLIA: [id number] PSA 0.56 <4.00 ng/mL Please note this is an ultrasensitive PSA assay with a lower limit of detection of 0.014 ng/mL. This test is performed by the [employer] ECLIA methodology. Values obtained with different assay methods or kits cannot be directly compared. P-TSH Reviewed date:01/10/2024 12:27:52 PM Interpretation:5.88 Performing Lab: Notes/Report: Test performed by [facility] [address] [place] [address] , [address], [place] [address] Cortez Lao MD, Landscaping Supervisor CLIA: [id number] TSH 5.88 0.43-5.25 mU/L X ray : Shoulder, right Reviewed date:01/10/2024 12:25:19 PM Interpretation:OA changes Performing Lab: Notes/Report: OA changes CT SCAN : CHEST, LUNG CANCER SCREENING LOW DOSE Reviewed date:01/29/2024 12:48:22 PM Interpretation:moderate to severe coronary artery calcifications, annual LDCT f/u Performing Lab: Notes/Report: moderate to severe coronary artery calcifications, annual LDCT f/u X ray : Hip, right Reviewed date:09/21/2024 08:10:53 AM Interpretation:degemerative joint disease of both hips Performing Lab: Notes/Report: degemerative joint disease of both hips Reason For Referral Diagnosis 1 Right shoulder pain (M25.511) Referral Organization [facility] Referring Provider First Name Janee Referring Provider Last Name Amy Referring Provider Speciality Family Pra ctice Referred Provider Physical Therapy, . Referred Provider Specialty Physical The rapist General Notes Janee Reyes 10:30:34 AM > right shoulder pain with decrease in ROM, Tere Phipps 01/06/2024 10:38:37 AM > faxed to [facility] PT, Tere Phipps 01/22/2024 9:38:28 AM > patient called and never heard from PT; resent referral Referral Priority Routine Medications Medication SIG (Take, Route, Frequency, Duration) [...] a day; Duration: 30 days 06/23/2024 Active Immunizations Vaccine Route Administration Date Status Comme nts Hepatitis A (adult) Unknown 08/08/2018 Administered Fluzone Intradermal Quad private(18-64yrs) IM Intramuscular 01/06/2024 Administered COVID 19 Moderna Unknown 10/15/2020 Administered Social History Tobacco Use: Social History Observation Description Date Details (start date - stop date) Current Smoker NA - NA CURRENT TOBACCO USE: Question Answer Notes Are you a: current smoker Problems Problem Type SNOMED Code ICD Code Onset Dates Problem Status W/U Status Risk Notes Problem COPD - Chronic obstructive pulmonary disease (67636217) COPD (chronic obstructive pulmonary disease) (J44.9) Active confirmed Problem Localized, primary osteoarthritis of the hand (870404223) Primary osteoarthritis, right hand (M19.041) Active confirmed Problem Male erectile disorder (414136220) Male erectile disorder (N52.9) Active confirmed Problem History of polyp of colon (situation) (584524011) History of colon polyps (Z86.010) Active confirmed Problem COPD - Chronic obstructive pulmonary disease (33747509) Chronic obstructive pulmonary disease, unspecified COPD type (J44.9) Active confirmed Problem Erectile dysfunction (disorder) (334939050) ED (erectile dysfunction) (N52.9) Active confirmed Problem Localized, primary osteoarthritis of the hand (435656864) Primary osteoarthritis of left hand (M19.042) Active confirmed Problem Tobacco use (614281863) Tobacco use disorder (F17.200) Active confirmed Vital Signs Heart Rate 80 /min 06/23/2024 Blood pressure diastolic 70 mm Hg 06/23/2024 Height 70 in 06/23/2024 Blood pressure systolic 128 mm Hg 06/23/2024 Weight 198.6 lbs 06/23/2024 BMI 28.49 kg/m2 06/23/2024 Encounters Encounter Location Date Provider Diagnosis [facility] [address] [place] [id number] 12/17/2023 Janee Reyes Shoulder pain, acute M25.519 and ED (erectile dysfunction) N52.9 [facility] [address] [place] [id number] 01/06/2024 Janee Reyes Chronic obstructive pulmonary disease, unspecified COPD type J44.9 ; Tobacco use disorder F17.200 ; Screening PSA (prostate specific antigen) Z12.5 ; Lipid screening Z13.220 ; Right shoulder pain M25.511 ; Thyroid disorder screen Z13.29 ; Diabetes mellitus screening Z13.1 and Encounter for immunization Z23 [facility] [address] [place] [id number] 06/23/2024 Janee Reyes Acute pain of left h ip M25.552 ; Acute right hip pain M25.551 ; Continuous tobacco abuse Z72.0 ; Male erectile disorder N52.9 and BMI 28.0-28.9,adult Z68.28 [facility] [address] [place], [place] [id number] 01/06/2024 Jay Marte [facility] [address] [place], [place] [id number] 01/10/2024 Janee Reyes [facility] [address] [place], [place] [id number] 01/22/2024 Janee Reyes Right shoulder pain M25.511 [facility] [address] [facility] [address] [place], [place] [id number] 06/01/2024 Jay Marte [facility] [address] [place] [id number] 09/28/2024 Jay Marte [facility] [address] [facility] [address] [place] [id number] 09/28/2024 Janee Reyes Assessments Encounter Date Diagnosis (ICD Code) Assessment Notes Treatment Notes Treatment Clinical Notes Section Notes 12/17/2023 Shoulder pain, acute (ICD-10 - M25.519) 12/17/2023 ED (erectile dysfunction) (ICD-10 - N52.9) 01/06/2024 Tobacco use disorder (ICD-10 - F17.200) discussed smoking cessation 01/22/2024 Right shoulder pain (ICD-10 - M25.511) 01/06/2024 Chronic obstructive pulmonary disease, unspecified COPD type (ICD-10 - J44.9) 06/23/2024 Acute right hip pain (ICD-10 - M25.551) 06/23/2024 Acute pain of left hip (ICD-10 - M25.552) encouraged pt to continue with the walking program 06/23/2024 Continuous tobacco abuse (ICD-10 - Z72.0) discussed decreasing tobacco usage; currently smoking and using oral tobacco 01/06/2024 Screening PSA (prostate specific antigen) (ICD-10 - Z12.5) 01/06/2024 Lipid screening (ICD-10 - Z13.220) 06/23/2024 Male erectile disorder (ICD-10 - N52.9) 06/23/2024 BMI 28.0-28.9,adult (ICD-10 - Z68.28) 01/06/2024 Right shoulder pain (ICD-10 - M25.511) heat /ice; MDP with food; ROM with the heat; will try PT: Xray 01/06/2024 Thyroid disorder screen (ICD-10 - Z13.29) 01/06/2024 Diabetes mellitus screening (ICD-10 - Z13.1) 01/06/2024 Encounter for immunization (ICD-10 - Z23) 12/17/2023 Other pt will RTC fasting for phtsical in about 2 weeks 01/06/2024 Other had colonoscopy 2 years ago with unknown results; he will obtain the results; 06/23/2024 Other reviewed 12/2023 labs; will repeat in 2 months with FU Plan Of Treatment Pending Test Test Name Order Date X ray : Hip, left 06/23/2024 Insurance Providers Payer Name Payer Address Payer Phone Subscriber Number Group Number Insured Name Patient Relationship to Insured Coverage Start Date Coverage End Date [employer] [facility] [address] [place], [place] [id number] [phone] [id number] INGRIS KARIMI Self - patient is the insured Medications Administered Medication Instructions Date of Administration Dosage Notes Dexamethasone 01/23/2021 1 mL Dexamethasone 12/17/2023 1 mL Medical (General) History Medical History History ICD Code COPD Tobacco abuse History of adenomatous colon polyps -fol lowed by Dr. Patterson Surgical History Surgery Date(Month/Year) left knee surgery Colonoscopy Hospitalization History Reason Date(Month/Year) H-SOA 01/04 [facility]-Pneumonia 05/08/18
--- OUTSIDE RECORDS SUMMARY | 2024-10-05 09:09 | XMS_ITS | Clinical Summary ---
Author Organization Healthcare Address [address] [place] [address] Care Team Providers [facility] Name Role Phone Pcp, No Primary Care Provider Unavailabl e Allergies No known active allergies Medications azithromycin (Zithromax Z-Caleb) 250 MG tabletIndications :COPD exacerbation (CMS/HCC) Take 2 tablets day 1 followed by 1 tablet daily on days 2 thru 5 6 tablet 5 Active albuterol (Proventil) (2.5 MG/3ML) 0.083% nebulizer solution Inhale 3 mL. 5 06/19/19 26 Active Ventolin HFA 108 (90 Base) MCG/ACT inhaler 5 Active cholecalciferol (D-5000) 5,000 Units tablet Take 1 tablet by mouth 1 time each day. 5 Active fluticasone-salme terol (Advair HFA) 45-21 MCG/ACT inhaler 2 puffs. 5 Active sildenafil (Viagra) 25 MG tablet Take 1 tablet by mouth daily as needed. Active Active Problems Problem Noted Date Diagnosed Date Stage 3 severe COPD by GOLD classification 07/15 Encounters Date Type Department Care Team Description 09/01/2024 1:00 PM EDT Office Visit [facility] [address] [place] [address] Chronic obstructive pulmonary disease, unspecified COPD type (CMS/HCC) (Primary Dx) 09/01/2024 Travel 08/25/2024 1:00 PM EDT Office Visit [facility] [address] [place] [address] Chronic obstructive pulmonary disease, unspecified COPD type (CMS/HCC) (Primary Dx) 08/25/2024 Travel 08/20/2024 10:30 AM EDT Office Visit [facility] [address] [place] [address] Stage 3 severe COPD by GOLD classification (CMS/HCC) (Primary Dx) 08/20/2024 Travel 08/18/2024 1:00 PM EDT Office Visit [facility] [address] [place] [address] Stage 3 severe COPD by GOLD classification (CMS/HCC) (Primary Dx) 08/18/2024 Travel 08/13/2024 1:00 PM EDT Office Visit [facility] [address] [place] [address] Stage 3 severe COPD by GOLD classification (CMS/HCC) (Primary Dx) 08/13/2024 Travel 08/11/2024 1:00 PM EDT Office Visit [facility] [address] [place] [address] Stage 3 severe COPD by GOLD classification (CMS/HCC) (Primary Dx) 08/11/2024 Travel 08/04/2024 1:00 PM EDT Office Visit [facility] [address] [place] [address] Stage 3 severe COPD by GOLD classification (CMS/HCC) (Primary Dx) 08/04/2024 Travel 07/30/2024 1:00 PM EDT Office Visit [facility] [address] [place] [address] Stage 3 severe COPD by GOLD classification (CMS/HCC) (Primary Dx) 07/30/2024 Travel 07/28/2024 1:00 PM EDT Office Visit [facility] [address] [place] [address] Stage 3 severe COPD by GOLD classification (CMS/HCC) (Primary Dx) 07/28/2024 Travel 07/24/2024 Results Follow-Up [facility] [address] [place] [id number] Karina Doan MD 07/24/2024 Telephone [facility] [address] [place] [address] Karina Doan MD 07/23/2024 1:40 PM EDT Office Visit [facility] [address] [place] [address] Karina Doan MD TSH elevation (Primary Dx); Subclinical hypothyroidism 07/23/2024 Travel 07/22/2024 Patient Outreach [facility] [address] [place] [address] Norma Philip 07/22/2024 Travel 07/21/2024 10:58 PM EDT - 07/22/2024 5:48 AM EDT Emergency [facility] [address] [place] [address] Vipin Bar MD COPD exacerbation (CMS/HCC) (Primary Dx) Discharge Disposition: Home or Self Care 07/21/2024 1:00 PM EDT Office Visit [facility] [address] [place] [phone] Stage 3 severe COPD by GOLD classification (CMS/HCC) (Primary Dx) 07/21/2024 Travel 07/15/2024 10:00 AM EDT Office Visit [facility] [address] [place] [phone] Tammie Fong Stage 3 severe COPD by GOLD classification (CMS/HCC) (Primary Dx); Physical deconditioning 07/15/2024 Plan of Care Documentation [facility] [address] [place] [phone] 07/15/2024 Travel from Last 3 Months Social History Tobacco Use Types Packs/Day Years Used Date Smoking Tobacco: Some Days Cigarettes Smokeless Tobacco: Current Tobacco Cessation:Ready to Q uit: Not Asked; Counseling Given: Not Answered Sex and Gender Information Value Date Recorded Sex Assigned at Not on file Legal Sex Male 8:53 PM EDT Gender Identity Not on file Sexual Orientation Not on file Last Filed Vital Signs Vital Sign Reading Time Taken Comments Blood Pressure 118/76 07/23/2024 1:27 PM EDT Pulse 76 07/23/2024 1:27 PM EDT Temperature 36.7 C (98 F) 07/22/2024 5:30 AM EDT Respiratory Rate 18 07/22/2024 5:30 AM EDT Oxygen Saturation 90% 07/22/2024 5:30 AM EDT Inhaled Oxygen Concentration - - Weight 105 kg (231 lb 0.7 oz) 09/01/2024 2:00 PM EDT Height 185.4 cm (6' 1 ) 08/25/2024 1:00 PM EDT Body Mass Index 30.48 08/25/2024 1:00 PM EDT Plan of Treatment Upcoming Encounters Date Type Department Care Team (Late st Contact Info) Description 10/29/2024 1:40 PM EDT Office Visit [facility] [address] [place] [address] Karina Doan MD [address] [place] [address] Health Maintenance Due Date Last Done Comments [facility]-Depression Screening 1965 [facility]-Infant/Child/Adol SDOH Screenings 1965 [facility]- SDOH Screenings 11/19/1981 [facility]-Adult SDOH Screenings 11/19/1981 [facility]-DTaP,Tdap,and Td Vaccines (1 - Tdap) 11/19/1982 [facility]-Pneumococcal Vaccine: 50+ Years (1 of 2 - PCV) 11/19/1982 CT Colonography 11/19/2008 Colonoscopy 11/19/2008 FIT-DNA 11/19/2008 FIT 11/19/2008 FOBT 11/19/2008 Sigmoidoscopy 11/19/2008 [facility]-Colorectal Cancer Screening 11/19/2008 [facility]-Zoster Vaccines (1 of 2) 11/19/2013 [facility]-Hepatitis A Vaccines (2 of 2 - Risk 2-dose series) 02/07/2019 08/08/2018 COX-HENTX-47 Vaccine (2 - 2024-25 season) 2023 10/15/2020 [facility]-RSV Vaccine: 60+ Years or (1 - Risk 60-74 years 1-dose series) 2023 [facility]-Influenza Vaccine (#1) 2024 01/06/2024 [facility]-HIV Screening Completed 07/22/2024 [facility]-Obesity Intervention Completed 025, 08/25/2024, 08/20/2024, Additional history exists HPV Vaccines Aged Out No longer eligi ble based on patient's age to complete this topic [facility]-HIB Vaccines Aged Out No longer e ligible based on patient's age to complete this topic [facility]-IPV Vaccines Aged Out No longer e ligible based on patient's age to complete this topic [facility]-Rotavirus Vaccines Aged Out No lo nger eligible based on patient's age to complete this topic Procedures Procedure Name Priority Date/Time Associated Diagnosis Comments FREE T4, PLASMA Routine 07/23/2024 2:27 PM EDT TSH elevation TSH Routine 07/23/2024 2:27 PM EDT TSH elevation TROPONIN T, HIGH SENSITIVITY, 2 HOUR, PLASMA Timed 07/22/2024 3:26 AM EDT XR CHEST 2 VIEWS STAT 07/22/2024 1:24 AM EDT HEPATITIS C VIRUS (HCV) QUANTITATIVE PCR - ED STAT 07/22/2024 12:35 AM EDT BLOOD GAS PANEL, VENOUS STAT 07/23/19 12:35 AM EDT CBC WITH AUTO DIFFERENTIAL STAT 07/22/2024 12:35 AM EDT PROCALCITONIN, PLASMA STAT 07/22/2024 12:35 AM EDT C-REACTIVE PROTEIN, PLASMA STAT 07/22/2024 12:35 AM EDT PHOSPHORUS, PLASMA STAT 07/22/2024 12 :35 AM EDT MAGNESIUM, PLASMA STAT 07/22/2024 12: 35 AM EDT COMPREHENSIVE METABOLIC PANEL, PLASMA STAT 07/22/2024 12:35 AM EDT ED HIV 1/2 ANTIBODY/ANTIGEN SCREEN WITH REFLEX TO HIV I/II DIFFERENTIATION STAT 07/22/2024 12:35 AM EDT ED PROTOCOL HIV 1/2 ANTIBODY/ANTIGEN SCREEN W/REFLEX TO HIV 1/2 ANTIBODY DIFFERENTIATION STAT 07/22/2024 12:35 AM EDT HEPATITIS C ANTIBODY - ED W/REFLEX TO HCV QUANT PCR STAT 07/22/2024 12:35 AM EDT TROPONIN T, HIGH SENSITIVITY, 0 HOUR, PLASMA, REFLEX TO 2 HOUR STAT 07/22/2024 12:35 AM EDT SARS COV-2/COVID-19 BY PCR - RAPID STAT 07/22/2024 12:35 AM EDT NASOPHARYNGEAL RESPIRATORY PANEL STAT 07/22/2024 12:35 AM EDT ECG ADULT STAT 07/21/2024 11:06 PM EDT from Last 3 Months Results * (ABNORMAL) Thyroid Stimulating Hormone, Plasma (07/23/2024 2:27 PM EDT) Thyroid Stimulating Hormone, Plasma 7.68(H) 0.40 - 4.20 uIU/mL 07/23/2024 6:53 PM EDT [facility] Blood Venous blood specimen / Unknown Venipuncture / Unknown 07/23/2024 2:27 PM EDT 07/23/2024 3:32 PM EDT us Karina Doan MD LAB BLOOD ORDERABLES Final R esult [facility] [address] [place] [address] * Free T4, Plasma (07/23/2024 2:27 PM EDT) Free T4, Plasma 1.2 0.8 - 1.7 ng/dL 07/23/2024 6:53 PM EDT [facility] Blood Venous blood specimen / Unknown Venipuncture / Unknown 07/23/2024 2:27 PM EDT 07/23/2024 3:32 PM EDT us Karina Doan MD LAB BLOOD ORDERABLES Final R esult [facility] [address] [place] [address] * Troponin T, High Sensitivity, 2 Hour, Plasma (07/22/2024 3:26 AM EDT) Troponin T, High Sensitivity, 2 Hour 8 <19 ng/L 07/22/2024 4:19 AM EDT [facility] Blood Venous blood specimen / Unknown Venipuncture / Unknown 07/22/2024 3:26 AM EDT 07/22/2024 3:50 AM EDT us Vipin Bar MD LAB BLOOD ORDERABLES Final Re sult Performing Organization Address City/[facility]/[place] [address] * XR Chest 2 Views (07/22/2024 1:24 AM EDT) Anatomical Region Laterality Modality Chest Computed Radiogr aphy Impressions 07/22/2024 2:17 AM EDT No acute cardiopulmonary findings. CRITICAL RESULT: No. COMMUNICATION: Per this written report. Preliminary report signed by Dino Alexandra MD on 07/22/2024 2:13 AM By electronically signing this report, I, the attending physician, attest that I have personally reviewed the images/data for the above examination(s) and agree with the final edited report. Drafted by Dino Alexandra MD on 07/22/2024 2:09 AM Final report signed by Ha Medina MD on 07/22/2024 2:17 AM Narrative 07/22/2024 2:17 AM EDT CLINICAL INDICATION: COPD exacerbation, possible pneumonia TECHNIQUE: XR CHEST 2 VIEWS COMPARISON: No studies available for comparison. FINDINGS: Cardiac silhouette and mediastinal contours are within normal limits. No consolidation, pleural effusions, or pneumothorax. Mild bronchial wall thickening. Upper lobe predominant emphysema with crowding of the vasculature inferiorly. Flattening of the bilateral diaphragms. No overt acute osseous abnormalities. Procedure Note Ha Medina MD - 07/22/2024 CLINICAL INDICATION: COPD exacerbation, possible pneumonia TECHNIQUE: XR CHEST 2 VIEWS COMPARISON: No studies available for comparison. FINDINGS: Cardiac silhouette and mediastinal contours are within normal limits. Noconsolidation, pleural effusions, or pneumothorax. Mild bronchial wallthickening. Upper lobe predominant emphysema with crowding of thevasculature inferiorly. Flattening of the bilateral diaphragms. No overtacute osseous abnormalities. IMPRESSION: No acute cardiopulmonary findings. CRITICAL RESULT: No. COMMUNICATION: Per this written report. Preliminary report signed by Dino Alexandra MD on 07/22/2024 2:13 AM By electronically signing this report, I, the attending physician, attestthat I have personally reviewed the images/data for the aboveexamination(s) and agree with the final edited report. Drafted by Dino Alexandra MD on 07/22/2024 2:09 AM Final report signed by Ha Medina MD on 07/22/2024 2:17 AM Vipin Bar MD IMG XR PROCEDURES Final Resul t * ED HIV 1/2 Antibody/Antigen Screen w/Reflex to HIV 1/2 Differentiation (07/22/2024 12:35 AM EDT) HIV 1 & 2 Antibody/Antigen Screen Non Reactive Non Reactive 07/22/2024 1:56 AM EDT [facility] Comment:Screening for HIV 1 & 2 antibodies, and P24 antigen is NONREACTIVE. No confirmatory testing is required. Blood Venous blood specimen / Unknown Venipuncture / Unknown 07/22/2024 12:35 AM EDT 07/22/2024 1:10 AM EDT us Vipin Bar MD LAB BLOOD ORDERABLES Final Re sult Performing Organization Address [facility] Co de Phone Number [facility] [address] [place] [address] * SARS CoV-2/COVID-19 by PCR - Rapid (07/22/2024 12:35 AM EDT) [facility] SARS CoV-2/COVID-1 9 RNA PCR Result Not Detected Not Detected 07/22/2024 2:40 AM EDT [facility] Swab Nasopharyngeal structure / Unknown Non-blood Collection / Unknown 07/22/2024 12:35 AM EDT 07/22/2024 1:46 AM EDT Narrative [facility] - 07/22/2024 2:40 AM EDT This test is FDA approved for use with nasopharyngeal specimens in Viral [employer] Media (VTM). This test is used for clinical purposes. It should not be regarded as investigational or for research. This laboratory is certified under the Clinical Laboratory improvement Amendments of 1988 (CLIA-88 as qualified to perform high complexity clinical laboratory testing. This test was performed on the Xpert Xpress SARS CoV-2 Plus assay test, a PCR- based method. Negative results should be considered presumptive and do not preclude current or future infection obtained through community transmission or other exposures. Negative results must be considered in the context of an individual's recent exposures, history, presence of clinical signs and symptoms consistent with COVID-19. us Vipin Bar MD LAB MICROBIOLOGY - GENERAL OR DERABLES Final Result Performing Organization Address [facility]/ZIP Co de Phone Number [facility] [address] [place] [address] * Troponin now and 120 min (07/22/2024 12:35 AM EDT) [facility] Troponin T, High Sensitivity, 0 Hour 7 <19 ng/L 07/22/2024 1:43 AM EDT [facility] Blood Venous blood specimen / Unknown Venipuncture / Unknown 07/22/2024 12:35 AM EDT 07/22/2024 1:05 AM EDT us Vipin Bar MD LAB BLOOD ORDERABLES Final Re sult Performing Organization Address [facility]/ZIP Co de Phone Number [facility] [address] [place] [address] * (ABNORMAL) Nasopharyngeal Respiratory Panel (07/22/2024 12:35 AM EDT) Human Rhinovirus/Ent erovirus PCR Result Detected( A) Not Detected 07/22/2024 3:45 AM EDT [facility] Swab Nasopharyngeal structure / Unknown Non-blood Collection / Unknown 07/22/2024 12:35 AM EDT 07/22/2024 1:46 AM EDT Narrative [facility] - 07/22/2024 3:45 AM EDT This assay can detect Adenovirus, Coronavirus, Human Metapneumovirus, Human Rhino/Enterovirus, Influenza A, Influenza A H1, Influenza A H1 2009, Influenza A H3, Influenza B, Parainfluenza Virus 1, Parainfluenza Virus 2, Parainfluenza Virus 3, Parainfluenza Virus 4, Respiratory Syncytial Virus A, Respiratory Syncytial Virus B, Chlamydia pneumoniae, and Mycoplasma pneumoniae. Note: This assay does NOT detect SARS/CoV, novel Coronavirus 2019-nCoV, Bordetella pertussis or Bordetella parapertussis. Nasopharyngeal Respiratory PCR Panel is performed using the [employer] ePlex instrument. This test is FDA approved for use with Nasopharyngeal swabs only. This test is used for clinical purposes. It should not be regarded as investigational or for research. The [facility] Clinical Microbiology Laboratory is certified under the Clinical Laboratory Improvement Amendments of 1988 (CLIA-88) as qualified to perform high complexity clinical laboratory testing. us Vipin Bar MD LAB MICROBIOLOGY - GENERAL OR DERABLES Final Result Performing Organization Address [facility]/ZIP Co de Phone Number [facility] [address] [place] [address] * Hepatitis C Virus (HCV) Quantitative PCR - ED (07/22/2024 12:35 AM EDT) Pathologist [facility] Hepatitis C Virus (HCV) Quantitative Interpretation Not Detected Not Detected. 07/22/2024 2:21 PM EDT [facility] Blood Venous blood specimen / Unknown Venipuncture / Unknown 07/22/2024 12:35 AM EDT 07/22/2024 1:11 AM EDT Narrative [facility] - 07/22/2024 2:21 PM EDT The [employer] M2000 HCV test is a Real Time in vitro nucleic acid amplification test for the quantitation of Hepatitis C Viral (HCV) RNA in human serum in HCV-infected individuals. It is intended for use as an aid in the management of HCV-infected individuals undergoing anti-viral therapy. The dynamic range for this test is log10 = 1.08 to 8.00 and/or 12 to 100,000,000 IU/mL. The limit of detection (LOD) for this assay is 12 IU/mL and the limit of quantitation (LOQ) is 12 IU/mL. This assay is FDA approved for clinical use. Vipin Bar MD LAB BLOOD ORDERABLES Final Re sult [facility] [address] [place] [address] * Procalcitonin (07/22/2024 12:35 AM EDT) [facility] Procalcitonin, Plasma <0.06 <0.09 ng/mL 07/22/2024 1:36 AM EDT [facility] Blood Venous blood specimen / Unknown Venipuncture / Unknown 07/22/2024 12:35 AM EDT 07/22/2024 1:05 AM EDT Narrative [facility] - 07/22/2024 1:36 AM EDT Procalcitonin concentrations in healthy individuals are <0.09 ng/mL. Published data support the following interpretive risk assessment: An elevated procalcitonin result does not always indicate sepsis. Various non-infectious conditions are known to increase procalcitonin. Results should be considered in the context of clinical symptoms and other laboratory tests. Procalcitonin >2.0 ng/mL: Concentrations >2.0 ng/mL on the first day of ICU admission are associated with a higher risk of progression to severe sepsis and/or septic shock. The change in PCT over time may help predict 28 day mortality risk. Please consult www.iqjfgh-wva-xcxixrqcow.com for more information. Test performed at [facility]. us Vipin Bar MD LAB BLOOD ORDERABLES Final Re sult Performing Organization Address [facility]/ZIP Co de Phone Number [facility] [address] [place] [address] * (ABNORMAL) Hepatitis C Antibody - ED (07/22/2024 12:35 AM EDT) [facility] Hepatitis C Antibody Positive(A ) Negative 07/22/2024 1:59 AM EDT [facility] Blood Venous blood specimen / Unknown Venipuncture / Unknown 07/22/2024 12:35 AM EDT 07/22/2024 1:11 AM EDT us Vipin Bar MD LAB BLOOD ORDERABLES Final Re sult Performing Organization Address [facility] Co de Phone Number [facility] [address] [place] [address] * (ABNORMAL) CBC w/diff (07/22/2024 12:35 AM EDT) [facility] WBC Count 7.62 3.70 - 10.30 10*3/uL LAB HEMATOLOGY METHOD 07/22/2024 1:49 AM EDT [facility] RBC Count 3.90(L) 4.60 - 6.10 10*6/uL LAB HEMATOLOGY METHOD 07/22/2024 1:49 AM EDT [facility] HGB 12.8(L) 13.7 - 17.5 g/dL LAB HEMATOLOGY METHOD 07/22/2024 1:49 AM EDT [facility] HCT 37.6(L) 40.0 - 51.0 % LAB HEMATOLOGY METHOD 07/22/2024 1:49 AM EDT [facility] Platelet Count 240 155 - 369 10*3/uL LAB HEMATOLOGY METHOD 07/22/2024 1:49 AM EDT [facility] MCV 96 79 - 98 fL LAB HEMATOLOGY METHOD 07/22/2024 1:49 AM EDT [facility] MCH 32.8(H) 26.0 - 32.0 pg LAB HEMATOLOGY METHOD 07/22/2024 1:49 AM EDT [facility] MCHC 34.0 30.7 - 35.5 g/dL LAB HEMATOLOGY METHOD 07/22/2024 1:49 AM EDT [facility] RDW 11.9 11.5 - 14.5 % LAB HEMATOLOGY METHOD 07/22/2024 1:49 AM EDT [facility] MPV 10.5 8.8 - 12.5 fL LAB HEMATOLOGY METHOD 07/22/2024 1:49 AM EDT [facility] nRBC 0.0 <=0.0 per 100 WBCs LAB HEMATOLOGY METHOD 07/22/2024 1:49 AM EDT [facility] Differential Type Automated LAB HEMATOLOGY METHOD 07/22/2024 1:49 AM EDT [facility] Neutrophils % 71 % LAB HEMATOLOGY METHOD 07/22/2024 1:49 AM EDT [facility] Lymphocytes % 15 % LAB HEMATOLOGY METHOD 07/22/2024 1:49 AM EDT [facility] Monocytes % 12 % LAB HEMATOLOGY METHOD 07/22/2024 1:49 AM EDT [facility] Eosinophils % 2 % LAB HEMATOLOGY METHOD 07/22/2024 1:49 AM EDT [facility] Basophils % 0 % LAB HEMATOLOGY METHOD 07/22/2024 1:49 AM EDT [facility] Immature Granulocytes % 0 % LAB HEMATOLOGY METHOD 07/22/2024 1:49 AM EDT [facility] Neutrophils Absolute 5.38 1.60 - 6.10 10*3/uL LAB HEMATOLOGY METHOD 07/22/2024 1:49 AM EDT [facility] Lymphocytes Absolute 1.16(L) 1.20 - 3.90 10*3/uL LAB HEMATOLOGY METHOD 07/22/2024 1:49 AM EDT [facility] Monocytes Absolute 0.88 0.30 - 0.90 10*3/uL LAB HEMATOLOGY METHOD 07/22/2024 1:49 AM EDT [facility] Eosinophils Absolute 0.14 0.00 - 0.50 10*3/uL LAB HEMATOLOGY METHOD 07/22/2024 1:49 AM EDT [facility] Basophils Absolute 0.03 0.00 - 0.10 10*3/uL LAB HEMATOLOGY METHOD 07/22/2024 1:49 AM EDT [facility] Immature Granulocytes Absolute 0.03 0.00 - 0.06 10*3/uL LAB HEMATOLOGY METHOD 07/22/2024 1:49 AM EDT [facility] Blood Venous blood specimen / Unknown Venipuncture / Unknown 07/22/2024 12:35 AM EDT 07/22/2024 1:05 AM EDT Narrative [facility] - 07/22/2024 1:49 AM EDT Therapeutic decision making should be based on absolute values, rather than percentages. us Vipin Bar MD LAB BLOOD ORDERABLES Final Re sult Performing Organization Address [facility]/ZIP Co de Phone Number [facility] [address] [place] [address] * (ABNORMAL) C-Reactive protein (07/22/2024 12:35 AM EDT) CRP, Plasma 41.4(H) <=8.0 mg/L 07/22/2024 1:43 AM EDT [facility] Blood Venous blood specimen / Unknown Venipuncture / Unknown 07/22/2024 12:35 AM EDT 07/22/2024 1:05 AM EDT Narrative [facility] - 07/22/2024 1:43 AM EDT This CRP test is appropriate for assessment of infection, systemic inflammation and/or tissue injury. To assess cardiovascular disease risk order high sensitivity CRP (CRPH). us Vipin Bar MD LAB BLOOD ORDERABLES Final Re sult Performing Organization Address City/[facility]/ZIP Co de Phone Number [facility] [address] [place] [address] * Phosphorus (07/22/2024 12:35 AM EDT) Phosphorus, Plasma 3.9 2.5 - 4.5 mg/dL 07/22/2024 1:43 AM EDT [facility] Blood Venous blood specimen / Unknown Venipuncture / Unknown 07/22/2024 12:35 AM EDT 07/22/2024 1:05 AM EDT us Vipin Bar MD LAB BLOOD ORDERABLES Final Re sult Performing Organization Address [facility]/ZIP Co de Phone Number [facility] [address] [place] [address] * Magnesium (07/22/2024 12:35 AM EDT) Magnesium, Plasma 2.1 1.9 - 2.4 mg/dL 07/22/2024 1:43 AM EDT [facility] Blood Venous blood specimen / Unknown Venipuncture / Unknown 07/22/2024 12:35 AM EDT 07/22/2024 1:05 AM EDT us Vipin Bar MD LAB BLOOD ORDERABLES Final Re sult Performing Organization Address [facility]/ZIP Co de Phone Number [facility] [address] [place] [address] * (ABNORMAL) Blood gas, venous (07/22/2024 12:35 AM EDT) pH, Venous 7.35 7.32 - 7.43 LAB HEMATOLOGY METHOD 07/22/2024 1:11 AM EDT [facility] pCO2, Venous 54 40 - 55 mmHg LAB HEMATOLOGY METHOD 07/22/2024 1:11 AM EDT [facility] pO2, Venous 53(H) 25 - 40 mmHg LAB HEMATOLOGY METHOD 07/22/2024 1:11 AM EDT [facility] SO2, Measured, Venous 87(H) 65 - 80 % LAB HEMATOLOGY METHOD 07/22/2024 1:11 AM EDT [facility] Base Excess, Venous 3.4(H) -2.0 - 3.0 mmol/L LAB HEMATOLOGY METHOD 07/22/2024 1:11 AM EDT [facility] Bicarbonate, Calculated, Venous 30(H) 22 - 26 mmol/L LAB HEMATOLOGY METHOD 07/22/2024 1:11 AM EDT [facility] Hematocrit, Whole Blood 39.7(L) 40.0 - 51.0 % LAB HEMATOLOGY METHOD 07/22/2024 1:11 AM EDT [facility] Sodium, Whole Blood 141 136 - 145 mmol/L LAB HEMATOLOGY METHOD 07/22/2024 1:11 AM EDT [facility] Potassium, Whole Blood 3.7 3.6 - 4.9 mmol/L LAB HEMATOLOGY METHOD 07/22/2024 1:11 AM EDT [facility] Chloride, Whole Blood 104 97 - 107 mmol/L LAB HEMATOLOGY METHOD 07/22/2024 1:11 AM EDT [facility] Glucose, Whole Blood 126(H) 74 - 99 mg/dL LAB HEMATOLOGY METHOD 07/22/2024 1:11 AM EDT [facility] Lactate, Venous, Whole Blood 0.8 0.5 - 2.2 mmol/L LAB HEMATOLOGY METHOD 07/22/2024 1:11 AM EDT [facility] Ionized Calcium, Whole Blood 4.5(L) 4.6 - 5.1 mg/dL LAB HEMATOLOGY METHOD 07/22/2024 1:11 AM EDT [facility] Blood Venous blood specimen / Unknown Venipuncture / Unknown 07/22/2024 12:35 AM EDT 07/22/2024 1:10 AM EDT us Vipin Bar MD LAB BLOOD ORDERABLES Final Re sult [facility] [address] [place] [address] * (ABNORMAL) CMP (07/22/2024 12:35 AM EDT) Glucose, Plasma 122(H) 74 - 99 mg/dL 07/22/2024 1:43 AM EDT [facility] BUN, Plasma 16 8 - 23 mg/dL 07/22/2024 1:43 AM EDT [facility] Creatinine, Plasma 0.72 0.70 - 1.20 mg/dL 07/22/2024 1:43 AM EDT [facility] BUN/Creatinine Ratio 22 07/22/2024 1:43 AM EDT [facility] Sodium, Plasma 141 136 - 145 mmol/L 07/22/2024 1:43 AM EDT [facility] Potassium, Plasma 4.0 3.6 - 4.9 mmol/L 07/22/2024 1:43 AM EDT [facility] Chloride, Plasma 104 97 - 107 mmol/L 07/22/2024 1:43 AM EDT [facility] CO2, Plasma 26 22 - 29 mmol/L 07/22/2024 1:43 AM EDT [facility] Anion Gap 11 6 - 16 mmol/L 07/22/2024 1:43 AM EDT [facility] Total Calcium, Plasma 8.6(L) 8.9 - 10.2 mg/dL 07/22/2024 1:43 AM EDT [facility] Total Protein 7.0 6.3 - 7.9 g/dL 07/22/2024 1:43 AM EDT [facility] Albumin, Plasma 3.9 3.5 - 5.2 g/dL 07/22/2024 1:43 AM EDT [facility] AST, Plasma 14 10 - 50 U/L 07/22/2024 1:43 AM EDT [facility] ALT, Plasma 13 10 - 50 U/L 07/22/2024 1:43 AM EDT [facility] Alkaline Phosphatase, Plasma 69 40 - 115 U/L 07/22/2024 1:43 AM EDT [facility] Total Bilirubin, Plasma 0.3 0.2 - 1.1 mg/dL 07/22/2024 1:43 AM EDT [facility] eGFRcr 104.6 mL/min/1.7 3m*2 07/22/2024 1:43 AM EDT [facility] Comment:Reported eGFRcr in m L/min/1.73m2 is based the CKD-EPI 2020 equation that does not use a race coefficient. Blood Venous blood specimen / Unknown Venipuncture / Unknown 07/22/2024 12:35 AM EDT 07/22/2024 1:05 AM EDT us Vipin Bar MD LAB BLOOD ORDERABLES Final Re sult [facility] [address] [place] [address] * EKG now - STAT (adult) (07/21/2024 11:06 PM EDT) EKG DIAGNOSIS CLASS Abnormal MUSE ECG Ventricular Rate 88 BPM MUSE ECG Atrial Rate 88 BPM MUSE ECG FL Interval 176 ms MUSE ECG QRSD Interval 72 ms MUSE ECG QT Interval 340 ms MUSE ECG QTC Interval 411 ms MUSE ECG P [place] 72 degrees MUSE ECG R [place] 75 degrees MUSE ECG T Wave [place] 72 degrees MUSE ECG Diagnosis Sinus rhythm with occasional premature ventricular complexes MUSE ECG Diagnosis Low voltage QRS MUSE ECG Diagnosis Septal infarct , age undetermined MUSE ECG Diagnosis MUSE ECG Diagnosis MUSE ECG Diagnosis Confirmed by Yasmin Eaton ([id number]) on 07/22/2024 11:28:03 PM MUSE ECG 07/21/2024 11:0 6 PM EDT 07/22/2024 11:28 PM EDT us Vipin Bar MD ECG ORDERABLES Final Result MUSE ECG from Last 3 Months Additional Health Concerns Infection Onset Date Last Indicated Rhinovirus 07/22/2024 07/22/2024 Insurance AETNA [facility] MEDICA[facility] Care Teams Hospital Cleaning Specialist Relationship Specialty Start Date End Date Pcp, No [address] [place] [address] PCP - General Family Medicine 07/21/24
--- OUTSIDE RECORDS SUMMARY | 2024-10-05 09:09 | XMS_ITS | Encounter Summary ---
Author Organization [facility] Address [address] [place] [address] Care Team Providers Care Boiler Shop Mechanic Name Role Phone Pcp, No Primary Care Provider Unavailabl e Encounter Details Date Type Department Care Team (Latest Contact Info) Description 08/18/2024 Travel Social History Tobacco Use Types Packs/Day [...] 1:40 PM EDT Office Visit Robe Masterson [facility] Endocrinology [address] [place] [address] Karina Doan MD [address] [place] [address] documented as of this encounter Visit Diagnoses Not on filedocumented in this encounter Additional Health Concerns Infection Onset Date Last Indicated Resolved Time Rhinovirus 07/22/2024 07/22/2024 Assessment Noted Time A Body Mass Index follow-up plan has been documented for the patient 08/18/2024 2:22 PM EDT documented as of this encounter Care Teams Boiler Shop Mechanic Relationship Specialty Start Date End Date Pcp, Lottie [address] [place] [address] PCP - General Family Medicine 07/21/24 documented as of this encounter
--- OUTSIDE RECORDS SUMMARY | 2024-10-05 09:09 | XMS_ITS | Encounter Summary ---
Author Organization [facility] Address [address] [place] [address] Care Team Providers Care Chief Business Officer Name Role Phone Pcp, No Primary Care Provider Unavailabl e Encounter Details Date Type Department Care Team (Latest Contact Info) Description 08/25/2024 Travel Social History Tobacco Use Types Packs/Day [...] 1:40 PM EDT Office Visit Robe Masterson [facility] Endocrinology [address] [place] [address] Karina Doan MD [address] [place] [address] documented as of this encounter Visit Diagnoses Not on filedocumented in this encounter Additional Health Concerns Infection Onset Date Last Indicated Resolved Time Rhinovirus 07/22/2024 07/22/2024 Assessment Noted Time A Body Mass Index follow-up plan has been documented for the patient 08/25/2024 3:18 PM EDT documented as of this encounter Care Teams Chief Business Officer Relationship Specialty Start Date End Date Pcp, Lottie [address] [place] [address] PCP - General Family Medicine 07/21/24 documented as of this encounter
--- OUTSIDE RECORDS SUMMARY | 2024-10-05 09:09 | XMS_ITS | Encounter Summary ---
Author Organization [facility] Address [address] [place] [address] Care Team Providers Care Harbor Police Lieutenant Name Role Phone Pcp, No Primary Care Provider Unavailabl e Reason for Referral * Consultation (Routine) - Closed Specialty Diagnoses / Procedures Referred By Hilario t Referred To Contact Endocrinology Diagnoses Elevated TSH Damion Soler APRN [address] [place] [address] Phone: tel: fax: [facility] Endocrinology [address] [place] [phone] Phone: tel: fax: Referral ID Status Reason Start Date Expiration Date V isits Requested Visits Authorized [id number] Closed Specialty Services Required 06/01/2024 12/01/2025 1 1 Encounter Details Date Type Department Care Team (Late st Contact Info) Description 06/01/2024 [facility] [address] [place] [address] Damion Soler APRN [address] [place] [address] Elevated TSH (Primary Dx) Social History Tobacco Use Types Packs/Day Years Used Date Smoking Tobacco: Never Assessed Sex and Gender Information Value Date Recorded Sex Assigned at Not on file Legal Sex Male 8:53 PM EDT Gender Identity Not on file Sexual Orientation Not on file documented as of this encounter Plan of Treatment Upcoming Encounters Date Type Department Care Team (Late st Contact Info) Description 10/29/2024 1:40 PM EDT Office Visit Robe Manzo Endocrinology [address] [place] [address] Karina Doan MD [address] [place] [address] Scheduled Referrals Name Type Priority Associated Diagnoses Order Schedule Ambulatory referral to Endocrinology Outpatient Referral Routine Elevated TSH Expected: 06/01/2024 (Approximate), Expires: 06/01/2025 documented as of this encounter Visit Diagnoses Diagnosis Elevated TSH- Primary Other abnormal blood chemistry documented in this encounter Additional Health Concerns Infection Onset Date Last Indicated Resolved Time COVID-19 Rule-Out 07/22/2024 07/22/2024 07/22/2024 2:40 AM EDT Respiratory Rule-Out 07/22/2024 07/22/2024 025 3:45 AM EDT Rhinovirus 07/22/2024 07/22/2024 documented as of this encounter Care Teams [employer] Lieutenant Relationship Specialty Start Date End Date Pcp, Lottie [address] [place] [address] PCP - General Family Medicine 07/21/24 documented as of this encounter
--- OUTSIDE RECORDS SUMMARY | 2024-10-05 09:09 | XMS_ITS | Encounter Summary ---
Author Organization [facility] Address [address] [place] [address] Care Team Providers Care Decatizer Name Role Phone Pcp, No Primary Care Provider Unavailabl e Encounter Details Date Type Department Care Team (Latest Contact Info) Description 08/11/2024 Travel Social History Tobacco Use Types Packs/Day [...] 1:40 PM EDT Office Visit Robe Masterson [facility] Endocrinology [address] [place] [address] Karina Doan MD [address] [place] [address] documented as of this encounter Visit Diagnoses Not on filedocumented in this encounter Additional Health Concerns Infection Onset Date Last Indicated Resolved Time Rhinovirus 07/22/2024 07/22/2024 Assessment Noted Time A Body Mass Index follow-up plan has been documented for the patient 08/11/2024 2:21 PM EDT documented as of this encounter Care Teams Decatizer Relationship Specialty Start Date End Date Pcp, Lottie [address] [place] [address] PCP - General Family Medicine 07/21/24 documented as of this encounter
--- OUTSIDE RECORDS SUMMARY | 2024-10-05 09:09 | XMS_ITS | Encounter Summary ---
Author Organization [facility] Address [address] [place] [address] Care Team Providers Care Online Producer Name Role Phone Pcp, No Primary Care Provider Unavailabl e Encounter Details Date Type Department Care Team (Latest Contact Info) Description 08/13/2024 Travel Social History Tobacco Use Types Packs/Day [...] 1:40 PM EDT Office Visit Robe Masterson [facility] Endocrinology [address] [place] [address] Karina Doan MD [address] [place] [address] documented as of this encounter Visit Diagnoses Not on filedocumented in this encounter Additional Health Concerns Infection Onset Date Last Indicated Resolved Time Rhinovirus 07/22/2024 07/22/2024 Assessment Noted Time A Body Mass Index follow-up plan has been documented for the patient 08/13/2024 2:22 PM EDT documented as of this encounter Care Teams Online Producer Relationship Specialty Start Date End Date Pcp, Lottie [address] [place] [address] PCP - General Family Medicine 07/21/24 documented as of this encounter
== END 2024-10-05 23:59 | disposition home or self-care (01) ==
LOC: RAD 09:03
PROVIDERS: PCP Family Medicine; Visit Provider Physician Assistant
DX: M16.11 Unilateral primary osteoarthritis, right hip (principal); M16.12 Unilateral primary osteoarthritis, left hip
CPT/HCPCS: 73502

== ENCOUNTER 2024-11-20 09:43 | Outpatient (CLI) | payer OTHER, SELFPAY ==
--- OUTSIDE RECORDS SUMMARY | 2023-06-10 10:45 | XMS_ITS ---
Author Organization [facility] [address] [facility] [address] [place] [id number] Care Team Providers Care Ict Teacher Name Role Phone Jay Marte Primary Care Provider Janee Reyes Unavailable [phone] Allergies No Known Allergies Results Component Value Reference Range Notes CBC Fingerstick (in house) Reviewed date:06/10/2023 08:58:42 PM Interpretation: Performing Lab: Notes/Report: wbc 9.1 3.5 - 10 lym 12.3 15 - 50 mid 3.0 2 - 15 gran 84.7 35 - 80 rbc 4.54 3.5 - 5.5 hgb 14.7 11.5 - 16.5 hct 46.1 35 - 55 mcv 101.5 75 - 100 mch 32.4 25 - 35 mchc 31.9 31 - 38 plat 228 100 - 400 REASON FOR VISIT not feeling well, nausea, diarrhea- multiple tick bites Medications Medication SIG (Take, Route, Frequency, Duration) Notes Start Date End Date Status Nabumetone 750 MG 2 tab(s) orally once a day 03/10/2019 Not-Taking Promethazine-DM 6.25-15 MG/5ML 5 ml as needed Orally every 6 hrs prn 01/01/2023 Not-Taking Bevespi Aerosphere 9-4.8 MCG/ACT 2 puff(s) inhaled 2 times a day 01/10/2021 Not-Taking Etodolac 400 MG 1 tab(s) orally 2 times a day; Duration: 30 day(s) 01/09/2021 Not-Taking Tamsulosin HCl 0.4 MG 1 orally once a day; Duration: 30 day(s) 01/23/2021 Not-Taking Albuterol Sulfate HFA 108 (90 Base) MCG/ACT 1 puff as needed Inhalation qid and q2h prn; Duration: 1 days 01/01/2023 Active Medrol 4 MG as directed orally daily; Duration: 6 days 01/01/2023 Not-Taking Zithromax Z-Caleb 250 MG 2 pills first day then one daily for 4 days orally as directed; Duration: 5 days 01/01/2023 Not-Taking Tamsulosin HCl 0.4 MG 1 cap(s) orally once a day; Duration: 30 day(s) 12/01/2021 Not-Taking Promethazine-DM 6.25-15 MG/5ML 5 ml orally every 6 hours prn 11/28/2020 Not-Taking Doxycycline Hyclate 100 MG 1 capsule Orally Twice a day; Duration: 10 day(s) 06/10/2023 Active ALBUTEROL HFA INHALER 200 METERED DOSES/ 8.5GM 2 INHALATIONS QID AND Q2H PRN *Please review for potential replacement for e-prescription and drug interaction check* 07/11/2020 Active Trelegy Ellipta 100-62.5-25 MCG/ACT 1 puff(s) Inhalation once a day; Duration: 30 days 07/19/2021 Active Sildenafil Citrate 20 MG 2 tab(s) orally qd prn; Duration: 10 days 12/07/2020 Active Advair Diskus 250-50 MCG/ACT 1 inh inhaled 2 times a day; Duration: 30 day(s) 03/22/2021 Not-Taking Cipro 500 MG 1 tab(s) orally every 12 hours; Duration: 7 days 01/30/2021 Not-Taking Cefuroxime Axetil 500MG 1 P.O. BID *Please review and pick correct strength-formulat ion from [employer] options. If intended option is not shown, discontinue and re-order from Quick Search* 03/22/2021 Not-Taking Zithromax Z-Caleb 250 MG 2 tablets on the first day, then 1 tablet daily for 4 days orally once a day; Duration: 5 days 07/20/2021 Not-Taking Cefdinir 300 MG 1 cap(s) orally every 12 hours; Duration: 10 day(s) 07/19/2021 Not-Taking Oasocnhel-Fzitjvyc-AX 30-2-10 MG/5ML 5-10 ml orally 4 times a day, prn 07/19/2021 Not-Taking Medrol 4 MG as directed orally daily; Duration: 6 days 07/19/2021 Not-Taking Cyclobenzaprine HCl 10 MG 1 tab(s) orally tid prn 01/09/2021 Not-Taking Sulfamethoxazole-Trim ethoprim 800-160 MG as directed orally every 12 hours; Duration: 7 day(s) 01/23/2021 Not-Taking Social History Tobacco Use: Social History Observation Description Date Details (start date - stop date) Current Smoker NA - NA CURRENT TOBACCO USE: Question Answer Notes Are you a: current smoker Vital Signs Blood pressure systolic 98 mm Hg 06/10/19 Blood pressure diastolic 62 mm Hg 024 Heart Rate 90 /min 06/10/2023 Height 70 in 06/10/2023 Weight 212.6 lbs 06/10/2023 BMI 30.50 kg/m2 06/10/2023 Encounters Encounter Location Date Provider Diagnosis [facility] [address], [place] [id number] 06/10/2023 Janee Reyes Tick bite W57.XXXA ; Gastroenteritis K52.9 and COPD (chronic obstructive pulmonary disease) J44.9 Assessments Encounter Date Diagnosis (ICD Code) Assessment Notes Treatment Notes Treatment Clinical Notes Section Notes 06/10/2023 Tick bite (ICD-10 - W57.XXXA) discussed taping around leg and arm openings and always wearing long pants and sleeves when logginh 06/10/2023 Gastroenteritis (ICD-10 - K52.9) does not want any med; stressed good hydration and reviewed bland foods 06/10/2023 COPD (chronic obstructive pulmonary disease) (ICD-10 - J44.9) Plan Of Treatment Medication Medication Name Sig Start Date Stop Date Notes Doxycycline Hyclate 100 MG 1 capsule Orally Twice a day; Duration: 10 day(s) 06/10/2023 ALBUTEROL HFA INHALER 200 METERED DOSES/ 8.5GM 2 INHALATIONS QID AND Q2H PRN 07/11/2020 *Please review for potential replacement for e-prescription and drug interaction check* Trelegy Ellipta 100-62.5-25 MCG/ACT 1 puff(s) Inhalation once a day; Duration: 30 days 07/19/2021 Treatment Notes Assessment Notes Tick bite discussed taping radha und leg and arm openings and always wearing long pants and sleeves when logginh Gastroenteritis does not want any me d; stressed good hydration and reviewed bland foods Next Appt Details Follow Up: prn, Reason: Progress Notes * INGRIS GUTIERREZ LDOB:[birth year] (59 yo M)Acc No.[id number]:06/10/2023 Progress Notes Patient: INGRIS BLACKMAN Provider: CINDY Boyd :1965 A ge:57 Y S ex:Male Date:06/10/2023 Address:[address] [place], [place] [address], [id number] Pcp:Jay Marte Subjective: * Chief Complaints: * 1 . Not feeling well, nausea, diarrhea- multiple tick bites. * HPI: G astroenterology: 57 year old male presents with c/o Nausea p t is here for nausea, vomitting, diarrhea. pt states he has been bitten several times recently by ticks during his work day. c/o Vomiting v omited x 1 today. c/o Diarrhea s everal times since this AM. Blood in Stool q uestionable. ate poted meat and crackers and fluids and retained thus far today. E NT/respiratory: c/o Fever. c/o Short of Breath r elieved with rest, with exertion. Denies : cough. * ROS: R ESPIRATORY: Chest congestion y es. C ough y es. ? C ARDIOLOGY: no C hest pain. G ASTROENTEROLOGY: Nausea y es. D iarrhea y es. * Medical History: C OPD, Tobacco abuse, History of adenomatous colon polyps -followed by Dr. Patterson. * Surgical History: l eft knee surgery , Colonoscopy . * Hospitalization/Major Diagno stic Procedure: [facility]-SOA 01/04, [facility]-Pneumonia 05/08/18. * Family History: F ather: alive 76 yrs. M other: 51 yrs, emphasema. 2 sister(s) . 4 son(s) , 4 daughter(s) . . * Social History: C URRENT TOBACCO USE: Yes A re you a: c urrent smoker. C affeine: yes, frequency:. Alcohol: No. * Medications: T aking ALBUTEROL HFA INHALER 200 METERED DOSES/ 8.5GM 2 INHALATIONS QID AND Q2H PRN , Notes to Pharmacist: *Please review for potential replacement for e-prescription and drug interaction check*, Taking Sildenafil Citrate 20 MG Tablet 2 tab(s) orally qd prn , Taking Trelegy Ellipta 200-62.5-25 MCG/ACT Aerosol Powder Breath Activated 1 puff(s) inhaled once a day , Taking Albuterol Sulfate HFA 108 (90 Base) MCG/ACT Aerosol Solution 1 puff as needed Inhalation qid and q2h prn , Not-Taking Tamsulosin HCl 0.4 MG Capsule 1 cap(s) orally once a day , Not-Taking Zithromax Z-Caleb 250 MG Tablet 2 pills first day then one daily for 4 days orally as directed , Not- Taking Medrol 4 MG Tablet Therapy Pack as directed orally daily , Not-Taking Promethazine-DM 6.25-15 MG/5ML Syrup 5 ml as needed Orally every 6 hrs prn , Not-Taking Nabumetone 750 MG Tablet 2 tab(s) orally once a day , Not-Taking Etodolac 400 MG Tablet 1 tab(s) orally 2 times a day , Not-Taking Bevespi Aerosphere 9-4.8 MCG/ACT Aerosol 2 puff(s) inhaled 2 times a day , Not-Taking Tamsulosin HCl 0.4 MG Capsule 1 orally once a day , Not-Taking Sulfamethoxazole-Trimethoprim 800-160 MG Tablet as directed orally every 12 hours , Not-Taking Cyclobenzaprine HCl 10 MG Tablet 1 tab(s) orally tid prn , Not-Taking Medrol 4 MG Tablet Therapy Pack as directed orally daily , Not-Taking Kvjerzlef-Pamlynwr-IG 30-2-10 MG/5ML Syrup 5-10 ml orally 4 times a day, prn , Not-Taking Cefdinir 300 MG Capsule 1 cap(s) orally every 12 hours , Not-Taking Zithromax Z-Caleb 250 MG Tablet 2 tablets on the first day, then 1 tablet daily for 4 days orally once a day , Not-Taking Cipro 500 MG Tablet 1 tab(s) orally every 12 hours , Not-Taking Advair Diskus 250-50 MCG/ACT Aerosol Powder Breath Activated 1 inh inhaled 2 times a day , Not-Taking Cefuroxime Axetil 500MG 1 P.O. BID , Notes to Pharmacist: *Please review and pick correct strength-formulation from [employer] options. If intended option is not shown, discontinue and re-order from Quick Search*, Not-Taking Promethazine-DM 6.25-15 MG/5ML Syrup 5 ml orally every 6 hours prn , Discontinued Cefuroxime Axetil 500 MG Tablet 1 tablet Orally every 12 hrs , Medication List reviewed and reconciled with the patient * Allergies: N .K.D.A. Objective: * Vitals: W t:212.6, Temp:98.8, BP: 98/62, HR:90, Nurse:, Ht: 70, BMI:30.50. * Examination: G eneral Examination: General Appearance: N AD, appears healthy, pleasant, alert.?HEENT: sclera and conjunctiva clear, PERRLA, TM's normal, translucent. O ral cavity:? mucosa moist and WNL, no erythema. N paige: supple, no lymphadenopathy. H eart: RRR. L ungs: CTAB A&P. N eurologic Exam: alert and oriented; conversant. S kin: multiple small pinpoint scabs on chest and back and left inner thigh. Assessment: * Assessment: 1. T ick bite - W57.XXXA (Primary) 2 . G astroenteritis - K52.9 ?3. C OPD (chronic obstructive pulmonary disease) - J44.9 Plan: * Treatment: 2. G astroenteritis Notes: does not want any med; stressed good hydration and reviewed bland foods 3. C OPD (chronic obstructive pulmonary disease) Refill ALBUTEROL HFA INHALER, 200 METERED DOSES/ 8.5GM, 2 INHALATIONS, QID AND Q2H PRN, 1, Refills 1, Notes to Pharmacist: *Please review for potential replacement for e-prescription and drug interaction check*; R efill Trelegy Ellipta Aerosol Powder Breath Activated, 100-62.5-25 MCG/ACT, 1 puff(s), Inhalation, once a day, 30 days, Refills 1. * Labs: * L ab: CBC Fingerstick (in house) (Collection Date & Time - 06/10/2023) Value Reference Range w bc 9.1 3.5 - 10 * l ym 12.3 15 - 50 * m id 3.0 2 - 15 * g ran 84.7 35 - 80 * r bc 4.54 3.5 - 5.5 * h gb 14.7 11.5 - 16.5 * h ct 46.1 35 - 55 * m cv 101.5 75 - 100 * m ch 32.4 25 - 35 * m chc 31.9 31 - 38 * p lat 228 100 - 400 * Emma Cortez 06/10/2023 4:06:11 PM > , Provider reviewed results while patient in office.Janee Reyes 06/10/2023 8:58:42 PM > * Procedure Codes: 3 6416 CAPILLARY BLOOD DRAW, 63122 CBC WITH AUTO DIFF * Follow Up: p rn * Images: Billing Information: * Visit Code: 74886 Office Visit, Est Pt., Level 3. * Procedure Codes: 39234 CAPILLARY BLOOD DRAW. 03722 CBC WITH AUTO DIFF. * Electronic signature of Yuly Reyes APRN on 2024 at 09:46 AM EDT Sign off status: Pending * Provider: CINDY Boyd Date: 0 06/10/2023 Generated for Josh daniels/Rodrigo/eTflor on: 1 09:46 AM EDT History and Physical Notes * HPI (History of Present Illness) Category Sub-Category Detail Notes Category Not es ENT/respiratory Short of Breath relieved with rest, wi th exertion cough Fever Gastroenterology Vomiting vomited x 1 today ate p oted meat and crackers and fluids and retained thus far today Diarrhea several times since this AM Blood in Stool questionable Nausea pt is here for nause a, vomitting, diarrhea. pt states he has been bitten several times recently by ticks during his work day Examination Category Sub-Category Detail Notes Category Not es General Examination HEENT: sclera and c onjunctiva clear, PERRLA, TM's normal, translucent Heart: RRR Lungs: CTAB A&P General Appearance: NAD, appears healthy , pleasant, alert Skin: multiple small pinpo int scabs on chest and back and left inner thigh Neurologic Exam: alert and oriented; conversant Neck: supple, no lymphaden opathy Oral cavity: mucosa moist and WNL , no erythema
--- OUTSIDE RECORDS SUMMARY | 2023-12-17 06:00 | XMS_ITS ---
Author Organization [facility] Address [address] [facility] 36 [facility] [address] [place] [id number] Care Team Providers Care It Security Project Manager Name Role Phone EstuardoJay iglesias Primary Care Provider Janee Reyes Unavailable [phone] Allergies No Known Allergies REASON FOR VISIT right shoulder hurting Medications Medication SIG (Take, Route, Frequency, Duration) Notes Start Date End Date Status Trelegy Ellipta 100-62.5-25 MCG/ACT 1 puff(s) Inhalation once a day; Duration: 30 days 07/19/2021 Active Sildenafil Citrate 25 MG 1 tablet as needed Orally Once a day; Duration: 90 days Active Medrol 4 MG as directed orally daily; Duration: 6 days 12/17/2023 Active ALBUTEROL HFA INHALER 200 METERED DOSES/ 8.5GM 2 INHALATIONS QID AND Q2H PRN *Please review for potential replacement for e-prescription and drug interaction check* 07/11/2020 Active Social History Tobacco Use: Social History Observation Description Date Details (start date - stop date) Current Smoker NA - NA CURRENT TOBACCO USE: Question Answer Notes Are you a: current smoker Problems Problem Type SNOMED Code ICD Code Onset Dates Problem Status W/U Status Risk Notes Problem Erectile dysfunction (disorder) (450567378) ED (erectile dysfunctio n) (N52.9) Active confirmed Vital Signs Blood pressure systolic 116 mm Hg 12/17/19 24 Blood pressure diastolic 74 mm Hg 024 Heart Rate 93 /min 12/17/2023 Height 70 in 12/17/2023 Weight 202.0 lbs 12/17/2023 BMI 28.98 kg/m2 12/17/2023 Encounters Encounter Location Date Provider Diagnosis [facility] [address] [facility] [address] [place] [id number] 12/17/2023 Janee Reyes Shoulder pain, acute M25.519 and ED (erectile dysfunction) N52.9 Assessments Encounter Date Diagnosis (ICD Code) Assessment Notes Treatment Notes Treatment Clinical Notes Section Notes 12/17/2023 Shoulder pain, acute (ICD-10 - M25.519) 12/17/2023 ED (erectile dysfunction) (ICD-10 - N52.9) 12/17/2023 Other pt will RTC fasting for phtsical in about 2 weeks Plan Of Treatment Medication Medication Name Sig Start Date Stop Date Notes Sildenafil Citrate 25 MG 1 tablet as nee ded Orally Once a day; Duration: 90 days Medrol 4 MG as directed orally d aily; Duration: 6 days 12/17/2023 Treatment Notes Assessment Notes Other pt will RTC fasting for phtsical in about 2 weeks Next Appt Details Follow Up: 2 Weeks, Reason: Medications Administered Medication Instructions Date of Administration Dosage Notes Dexamethasone 12/17/2023 1 mL Progress Notes * INGRIS GUTIERREZ LDOB:[birth year] (59 yo M)Acc No.[id number]:12/17/2023 Progress Notes Patient: INGRIS BLACKMAN Provider: CINDY Boyd :1965 A ge:58 Y S ex:Male Date:12/17/2023 Address:[address] [id number] Pcp:Jay Marte Subjective: * Chief Complaints: * 1 . Right shoulder hurting. * HPI: S houlder/Upper arm: 58 year old male presents with c/o shoulder pain P t is here today for , right shoulder pain. Pt sts he reached back a certain way and did something to his shoulder, he sts he unsure if he twisted something. Pt sts it has been 2 weeks and has not gotten any better. Pt has limited rom in the arm. Pt sts if he moves it a certain way it liang and hurts. 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 * ROS: R ESPIRATORY: Chest congestion y [...] frequency:. Alcohol: No. * Medications: T aking Sildenafil Citrate 25 MG Tablet 1 tablet as needed Orally Once a day , Taking ALBUTEROL HFA INHALER 200 METERED DOSES/ 8.5GM 2 INHALATIONS QID AND Q2H PRN , Notes to Pharmacist: *Please review for potential replacement for e-prescription and drug interaction check*, Taking Trelegy Ellipta 100-62.5-25 MCG/ACT Aerosol Powder Breath Activated 1 puff(s) Inhalation once a day , Medication List reviewed and reconciled with the patient * Allergies: N .K.D.A. Objective: * Vitals: W t:202.0, Temp:97.9, BP:116/74, HR:93, O2 Sat:94% on RA, Nurse:FARZANEH, Ht: 70, BMI:28.98. * Examination: G eneral Examination: General Appearance: NAD appears healthy alert pleasant Color good; conversant. H eart: RRR. L ungs: bilateral scattered rhonchi. N eurologic Exam: alert and oriented. S houlder / Upper arm: Shoulder: right. I nspection: no swelling or redness no deformities. P alpation: t enderness on subdeltoid bursa no crepitations. R catia of motion: restricted rotations and abduction restricted extension. Assessment: * Assessment: 1. S houlder pain, acute - M25.519 (Primary) S pecify :right 2 . E D (erectile dysfunction) - N52.9 Plan: * Treatment: 2. E D (erectile dysfunction) Refill Sildenafil Citrate Tablet, 25 MG, 1 tablet as needed, Orally, Once a day, 90 days, 90, Refills 0. 3. O thers Notes: pt will RTC fasting for phtsical in about 2 weeks * Therapeutic Injections: Dexamethasone : 1 mL (Route: Intramuscular) given by FARZANEH Joshi on left gluteus (Shoulder pain, acute) * Procedure Codes: 9 4760 PULSE OX, J1100 Dexamethasone, 89131 ADMINISTRATION OF INJECTION * Follow Up: 2 Weeks * Images: Billing Information: * Visit Code: 11518 Office Visit, Est Pt., Level 3. * Procedure Codes: 00830 PULSE OX. J1100 Dexamethasone. 72188 ADMINISTRATION OF INJECTION. * Electronic signature of Yuly Reyes APRN on 2024 at 09:47 AM EDT Sign off status: Pending * Provider: CINDY Boyd Date: 1 Generated for Josh daniels/Rodrigo/George on: 09:47 AM EDT History and Physical Notes * HPI (History of Present Illness) Category Sub-Category Detail Notes Category Not es Shoulder/Upper arm shoulder pain Pt is here to day for , right shoulder pain. Pt sts he reached back a certain way and did something to his shoulder, he sts he unsure if he twisted something. Pt sts it has been 2 weeks and has not gotten any better. Pt has limited rom in the arm. 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
--- OUTSIDE RECORDS SUMMARY | 2024-01-06 06:00 | XMS_ITS ---
Author Organization [facility] Address [address] [facility] [address] [place] [id number] Care Team Providers Care Maintenance Services Dispatcher Name Role Phone Estuardo Jay Tawanda Primary Care Provider AmyNandiniJanee Unavailable [phone] Allergies No Known Allergies Results Component Value Reference Range Notes CBC Venipuncture (in house) Reviewed date:01/10/2024 12:26:18 PM Interpretation: Performing Lab: Notes/Report: wbc 6.7 3.5 - 10 lymph 25.3 15 - 50 mid 6.3 2 - 15 gran 68.4 35 - 80 rbc 5.05 3.5 - 5.5 hgb 16.0 11.5 - 16.5 hct 49.0 35 - 55 mcv 97.0 75 - 100 mch 31.7 25 - 35 mchc 32.6 31 - 38 platlet 345 100 - 400 Glycohemoglobin A1c (in hous e) Reviewed date:01/10/2024 12:25:51 PM Interpretation:5.7% Performing Lab: Notes/Report: 5.7% glycohemoglobin 5.7% 5 - 6.5 % P-Comprehensive Metabolic Pa marcelal (CMP) Reviewed date:01/10/2024 12:26:39 PM Interpretation:K+ 5.6 Performing Lab: Notes/Report: CLIA: [id number] Cortez Lao MD, [employer]ator [employer]uscripts [address] [place] [address] , [address], [place] [address] Test performed by [facility] Sodium 139 135-145 mmol/L Potassium 5.6 3.5-5.3 mmol/L Chloride 100 97-108 mmol/L CO2 31 22-32 mmol/L Glucose 94 65-99 mg/dL BUN 24 8-23 mg/dL Creatinine 0.94 0.70-1.30 mg/dL Calcium 9.7 8.6-10.4 mg/dL eGFR by Creatinine 93 >59 mL/min/1.73m2 Protein 7.2 6.0-8.3 g/dL Albumin 4.4 3.5-5.3 g/dL Alkaline Phosphatase 98 40-129 IU/L ALT (SGPT) 12 <5-55 IU/L AST (SGOT) 14 <5-46 IU/L Bilirubin, Total 0.4 <0.2-1.2 mg/dL A/G Ratio 1.6 1.1-2.5 P-Lipid Panel Reviewed date:01/10/2024 12:27:31 PM Interpretation:LDL 77; HDL 47; TSH 100 Performing Lab: Notes/Report: Test performed by [facility] [address] , [place] [address] Cortez Lao MD, Curator Of Manuscripts CLIA: [id number] Cholesterol 144 <200 mg/dL Triglycerides 100 <150 mg/dL HDL Cholesterol 47 >39 mg/dL Cholesterol / HDL Ratio 3.06 0.00-4.99 Ratio Non-HDL Cholesterol 97 <130 mg/dL LDL Cholesterol (Calculation) 77 <130 mg/dL LDL Cholesterol Levels* Less than 100 mg/dL Optimal 100 to 129 mg/dL Near Optimal/ Above Optimal 130 to 159 mg/dL Borderline High 160 to 189 mg/dL High 190 mg/dL and above Very High * Categories as recommended by the 2004 ATPIII guidelines LDL/HDL Ratio 1.6 <3.3 Ratio LDL Cholesterol Patient History Test Date: 01/06/2024 LDL Results: 77 Units: mg/dL % Change: - P-PSA Reviewed date:01/10/2024 12:27:09 PM Interpretation:0.56 Performing Lab: Notes/Report: Test performed by [facility] [address] [place] [address] , [address], [place] [address] Cortez Lao MD, Curator Of Manuscripts CLIA: [id number] PSA 0.56 <4.00 ng/mL Please note this is an ultrasensitive PSA assay with a lower limit of detection of 0.014 ng/mL. This test is performed by the [employer] ECLIA methodology. Values obtained with different assay methods or kits cannot be directly compared. P-TSH Reviewed date:01/10/2024 12:27:52 PM Interpretation:5.88 Performing Lab: Notes/Report: Test performed by [facility] [address] [place] [address] , [address], [place] [address] Cortez Lao MD, Curator Of [employer]uscripts CLIA: [id number] TSH 5.88 0.43-5.25 mU/L X ray : Shoulder, right Reviewed date:01/10/2024 12:25:19 PM Interpretation:OA changes Performing Lab: Notes/Report: OA changes CT SCAN : CHEST, LUNG CANCER SCREENING LOW DOSE Reviewed date:01/29/2024 12:48:22 PM Interpretation:moderate to severe coronary artery calcifications, annual LDCT f/u Performing Lab: Notes/Report: moderate to severe coronary artery calcifications, annual LDCT f/u Reason For Referral Diagnosis 1 Right shoulder pain (M25.511) Referral Organization [facility] Referring Provider First Name Janee Referring Provider Last Name Amy Referring Provider Speciality Family Pra ctice Referred Provider Physical Therapy, . Referred Provider Specialty Physical The rapist General Notes Janee Reyes 10:30:34 AM > right shoulder pain with decrease in ROM, Tere Phipps 01/06/2024 10:38:37 AM > faxed to [facility] PT, Tere Phipps 01/22/2024 9:38:28 AM > patient called and never heard from PT; resent referral Referral Priority Routine REASON FOR VISIT yearly CPX with fasting labs, Needs labs with PSA, low dose chest CT, & colon cancer screening Medications Medication SIG (Take, Route, Frequency, Duration) Notes Start Date End Date Status Trelegy Ellipta 100-62.5-25 MCG/ACT 1 puff(s) Inhalation once a day 07/19/2021 Active Sildenafil Citrate 25 MG 1 tablet as needed Orally Once a day; Duration: 90 days Active ALBUTEROL HFA INHALER 200 METERED DOSES/ 8.5GM 2 INHALATIONS QID AND Q2H PRN *Please review for potential replacement for e-prescription and drug interaction check* 07/11/2020 Active Albuterol Sulfate HFA 108 (90 Base) MCG/ACT 1 puff as needed Inhalation q2h prn 01/06/2024 Active Medrol 4 MG as directed orally daily; Duration: 6 days 12/17/2023 Active Immunizations Vaccine Route Administration Date Status Comme nts Fluzone Intradermal Quad private(18-64yrs) IM Intramuscular 01/06/2024 Administered Social History Tobacco Use: Social History Observation Description Date Details (start date - stop date) Current Smoker NA - NA CURRENT TOBACCO USE: Question Answer Notes Are you a: current smoker Problems Problem Type SNOMED Code ICD Code Onset Dates Problem Status W/U Status Risk Notes Problem COPD - Chronic obstructive pulmonary disease (36062986) Chronic obstructive pulmonary disease, unspecified COPD type (J44.9) Active confirmed Vital Signs Blood pressure systolic 128 mm Hg 01/06/20 24 Blood pressure diastolic 60 mm Hg 024 Heart Rate 45 /min 01/06/2024 Height 70 in 01/06/2024 Weight 197.2 lbs 01/06/2024 BMI 28.29 kg/m2 01/06/2024 Encounters Encounter Location Date Provider Diagnosis [facility] [address] [place], [place] [id number] 01/06/2024 aJnee Reyes Chronic obstructive pulmonary disease, unspecified COPD type J44.9 ; Tobacco use disorder F17.200 ; Screening PSA (prostate specific antigen) Z12.5 ; Lipid screening Z13.220 ; Right shoulder pain M25.511 ; Thyroid disorder screen Z13.29 ; Diabetes mellitus screening Z13.1 and Encounter for immunization Z23 Assessments Encounter Date Diagnosis (ICD Code) Assessment Notes Treatment Notes Treatment Clinical Notes Section Notes 01/06/2024 Chronic obstructive pulmonary disease, unspecified COPD type (ICD-10 - J44.9) 01/06/2024 Tobacco use disorder (ICD-10 - F17.200) discussed smoking cessation 01/06/2024 Screening PSA (prostate specific antigen) (ICD-10 - Z12.5) 01/06/2024 Lipid screening (ICD-10 - Z13.220) 01/06/2024 Right shoulder pain (ICD-10 - M25.511) heat /ice; MDP with food; ROM with the heat; will try PT: Xray 01/06/2024 Thyroid disorder screen (ICD-10 - Z13.29) 01/06/2024 Diabetes mellitus screening (ICD-10 - Z13.1) 01/06/2024 Encounter for immunization (ICD-10 - Z23) 01/06/2024 Other had colonoscopy 2 years ago with unknown results; he will obtain the results; Plan Of Treatment Medication Medication Name Sig Start Date Stop Date Notes Trelegy Ellipta 100-62.5-25 MCG/ACT 1 puff(s) Inhalation once a day 07/19/2021 Albuterol Sulfate HFA 108 (9 0 Base) MCG/ACT 1 puff as needed Inhalation q2h prn 01/06/2024 Medrol 4 MG as directed orally d aily; Duration: 6 days 12/17/2023 Treatment Notes Assessment Notes Tobacco use disorder discussed smoking c essation Right shoulder pain heat /ice; MDP with food; ROM with the heat; will try PT: Xray Other had colonoscopy 2 ye ars ago with unknown results; he will obtain the results; Referrals Referral Date Details 01/06/2024 01/06/2024, . Physic al Therapy Next Appt Details Follow Up: will notify of te st results, Reason: Progress Notes * INGRIS GUTIERREZ LDOB:[birth year] (59 yo M)Acc No.[id number]:01/06/2024 Physical Patient: INGRIS BLACKMAN Heladio Provider: CINDY Boyd :1965 A ge:58 Y S ex:Male Date:01/06/2024 Address:[place], [id number] Pcp:Jay Marte Subjective: * Chief Complaints: * 1 . yearly CPX with fasting labs. 2. Needs labs with PSA, low dose chest CT, & colon cancer screening. * HPI: H PI: 58 year old male presents with c/o Patient is here today for?Pt is here today for a yearly check up with fasting labs. Pt sts his shoulder is no better, pt sts it felt better when he was taking the steroids for it, but once he finished those it continued to hurt . E NT/respiratory: c/o cough i mproved. c/o smoking /3 PPD. Denies : Fever. D enies : Chest Pain. D enies : Short of Breath. * ROS: R ESPIRATORY: Chest congestion y [...] frequency:. Alcohol: No. * Medications: T aking Medrol 4 MG Tablet Therapy Pack as directed orally daily , Taking ALBUTEROL HFA INHALER 200 METERED DOSES/ 8.5GM 2 INHALATIONS QID AND Q2H PRN , Notes to Pharmacist: *Please review for potential replacement for e-prescription and drug interaction check*, Taking Trelegy Ellipta 100-62.5-25 MCG/ACT Aerosol Powder Breath Activated 1 puff(s) Inhalation once a day , Taking Sildenafil Citrate 25 MG Tablet 1 tablet as needed Orally Once a day , Medication List reviewed and reconciled with the patient * Allergies: N .K.D.A. Objective: * Vitals: W t:197.2, Temp:98.6, BP:128/60, HR:45, O2 Sat:98% on RA, Nurse:FARZANEH, Ht: 70, BMI:28.29. * Examination: G eneral Examination: General Appearance: NAD appears healthy alert pleasant.?HEENT: sclera and conjunctiva clear, PERRLA, TM's normal, translucent. O ral cavity:? mucosa moist and WNL no erythema. N paige: supple no lymphadenopathy no carotid bruits thyroid normal. H eart: RRR. L ungs: CTAB A&P. N eurologic Exam: alert and oriented. E xtremities: no leg edema. Assessment: * Assessment: 1. C hronic obstructive pulmonary disease, unspecified COPD type - J44.9 (Primary) ?2. T obacco use disorder - F17.200 3 . S creening PSA (prostate specific antigen) - Z12.5 4 . L ipid screening - Z13.220 5 . R ight shoulder pain - M25.511 6 . T hyroid disorder screen - Z13.29 7 . D iabetes mellitus screening - Z13.1 8 . E ncounter for immunization - Z23 Plan: * Treatment: Value Reference Range A /G Ratio 1.6 1.1-2.5 - * A lbumin 4.4 3.5-5.3 - g/dL * A lkaline Phosphatase 98 40-129 - IU/L * A LT (SGPT) 12 <5-55 - IU/L * A ST (SGOT) 14 <5-46 - IU/L * B ilirubin, Total 0.4 <0.2-1.2 - mg/dL * B UN 24 H 8-23 - mg/dL * C alcium 9.7 8.6-10.4 - mg/dL * C hloride 100 97-108 - mmol/L * C O2 31 22-32 - mmol/L * C reatinine 0.94 0.70-1.30 - mg/dL * G lucose 94 65-99 - mg/dL * P otassium 5.6 H 3.5-5.3 - mmol/L * S odium 139 135-145 - mmol/L * P rotein 7.2 6.0-8.3 - g/dL * e GFR by Creatinine 93 >59 - mL/min/1.73m2 * AmyJanee 01/10/2024 12:26:35 PM > , See encounter note ?LAB: CBC Venipuncture (in house) (Collection Date & Time - 01/06/2024)* Value Reference Range w bc 6.7 3.5 - 10 * l ymph 25.3 15 - 50 * m id 6.3 2 - 15 * g ran 68.4 35 - 80 * r bc 5.05 3.5 - 5.5 * h gb 16.0 11.5 - 16.5 * h ct 49.0 35 - 55 * m cv 97.0 75 - 100 * m ch 31.7 25 - 35 * m chc 32.6 31 - 38 * p latlet 345 100 - 400 * Diane Van 01/06/2024 10:5 0:54 AM >Janee Reyes 01/10/2024 12:08:13 PM > , See encounter note 2.?Tobacco use disorder?Imaging: CT SCAN : CHEST, LUNG CANCER SCREENING LOW DOSE (Performed Date - 01/22/2024)?moderate to severe coronary artery calcifications, annual LDCT f/u* Janee Reyes 01/06/2024 10:20:28 AM > ongoing smokingTaylTere rosado 01/06/2024 10:32:40 AM > no auth required; CPT code 42540Ernnogu,Janee 01/27/2024 9:17:47 AM > no answer when phonedSAshleigh sosa 01/27/2024 2:58:23 PM > pt stopped in about his results i told him Snehal tried calling him he said he would have his phone with him for Snehal to call back.Janee Reyes 01/29/2024 12:48:08 PM > I spoke with pt and reported results Notes: discussed smoking cessation??3.?Screening PSA (prostate specific antigen) ?LAB: P-PSA (Collection Date & Time - 01/06/2024 09:37 AM)?0.56* Value Reference Range P SA 0.56 <4.00 - ng/mL * Janee Reyes 01/10/2024 12:26:57 PM > , See encounter note 4.?Lipid screening?LAB: P-Lipid Panel (Collection Date & Time - 01/06/2024 09:37 AM)?LDL 77; HDL 47; TSH 100* Value Reference Range C holesterol / HDL Ratio 3.06 0.00-4.99 - Ratio * C holesterol 144 <200 - mg/dL * H DL Cholesterol 47 >39 - mg/dL * L DL Cholesterol (Calculation) 77 <130 - mg/d L * L DL/HDL Ratio 1.6 <3.3 - Ratio * N on-HDL Cholesterol 97 <130 - mg/dL * T riglycerides 100 <150 - mg/dL * Janee Reyes 01/10/2024 12:27:25 PM > , See encounter note 5.?Right shoulder pain? Refill Medrol Tablet Therapy Pack, 4 MG, as directed, orally, daily, 6 days, 1, Refills 0.?Imaging: X ray : Shoulder, right (Performed Date - 01/06/2024)?OA changes* Janee Reyes 01/10/2024 12:12:02 PM > , See encounter note Notes: heat /ice; MDP with food; ROM with the heat; will try PT: Xray?& #160;? Referral To:. Physical Therapy??Physical Therapist ?Reason: 6.?Thyroid disorder screen?LAB: P-TSH (Collection Date & Time - 01/06/2024 09:37 AM)?5.88* Value Reference Range T SH 5.88 H 0.43-5.25 - mU/L * Janee Reyes 01/10/2024 12:27:48 PM > , See encounter note 7.?Diabetes mellitus screening?LAB: Glycohemoglobin A1c (in house) (Collection Date & Time - 01/06/2024)? 5.7%* Value Reference Range g lycohemoglobin 5.7% 5 - 6.5 % * Diane Van 01/06/2024 10:5 1:34 AM >Janee Reyes 01/10/2024 12:25:37 PM > s, See encounter note 8.?Others? Notes: had colonoscopy 2 years ago with unknown results; he will obtain the results;?? * Immunizations: Fluzone Intradermal Quad private(18-64yrs) : 0.5 mL (Route: Intramuscular) given by FARZANEH Joshi on Right Deltoid (Encounter for immunization) * Procedure Codes: 9 4760 [place]ULSE [place]X, [address]861 CAPILLARY BLOOD DRAW, 60802 GLYCATED HEMOGLOBIN TEST, Modifiers: QW , 47104 CBC WITH AUTO DIFF, 77660 VENIPUNCT, ROUTINE* * Follow Up: w ill notify of test results * Images: Billing Information: * Visit Code: 23526 Office Visit, Est Pt., Level 4. * Procedure Codes: 23213 [place]. [address] CAPILLARY BLOOD DRAW. 64011 GLYCATED HEMOGLOBIN TEST. Modifiers: QW 12414 CBC WITH AUTO DIFF. 99513 VENIPUNCT, ROUTINE*. * Electronic signature of Yuly Reyes APRN on 2024 at 09:46 AM EDT Sign off status: Pending * Provider: CINDY Boyd Date: 03/07/2023 Generated for Josh daniels/Rodrigo/George on: 09:46 AM EDT History and Physical Notes * HPI (History of Present Illness) Category Sub-Category Detail Notes Category Not es ENT/respiratory Short of Breath Chest Pain cough improved Fever smoking 1/3 PPD HPI Patient is here today for Pt is here today for a yearly check up with fasting labs. Pt sts his shoulder is no better, pt sts it felt better when he was taking the steroids for it, but once he finished those it continued to hurt Examination Category Sub-Category Detail Notes Category Not es General Examination HEENT: sclera and c onjunctiva clear, PERRLA, TM's normal, translucent Heart: RRR Lungs: CTAB A&P Extremities: no leg edema General Appearance: NAD appears healthy alert pleasant Neurologic Exam: alert and oriented Neck: supple no lymphadeno juancho no carotid bruits thyroid normal Oral cavity: mucosa moist and WNL no erythema Consultation Request Notes Referral Date Referring Provider Referred Provider Not es 01/06/2024 Janee Reyes Physical Therapy, .
--- OUTSIDE RECORDS SUMMARY | 2024-04-03 11:00 | XMS_ITS ---
Author Organization [facility] Address [address] [facility] [address] [place] [phone] Care Team Providers Care Regional Intermodal Truck Driver Name Role Phone Jay Marte Primary Care Provider Karly Linares [phone] Allergies No Known Allergies REASON FOR VISIT didn't say Social History Tobacco Use: Social History Observation Description Date Details (start date - stop date) Current Smoker NA - NA CURRENT TOBACCO USE: Question Answer Notes Are you a: current smoker Encounters Encounter Location Date Provider Diagnosis [facility] [address] [facility] [address] [place] [id number] 04/03/2024 Karly Linares Plan Of Treatment No Information Progress Notes * INGRIS GUTIERREZ LDOB:[birth year] (59 yo M)Acc No.[id number]:04/03/2024 Progress Notes Patient: INGRIS BLACKMAN Provider: TIM Carlos :1965 A ge:58 Y S ex:Male Date:04/03/2024 Address:[address] [place] [address] [id number] Pcp:Jay Marte Subjective: * [...] * Electronic signature of TIM Shaffer on 2024 at 09:46 AM EDT Sign off status: Pending * Provider: TIM Carlos Date: 0 04/03/2024 Generated for Josh daniels/Rodrigo/eTransmitting on: 1 09:46 AM EDT History and Physical Notes * HPI (History of Present Illness) Category Sub-Category Detail Notes Category Not es HPI Patient is here today for
--- OUTSIDE RECORDS SUMMARY | 2024-06-23 07:15 | XMS_ITS ---
[facility] [address] [facility] [address] [place] [id number] Care Team Providers Care Blasting Worker Name Role Phone Jay Marte Primary Care Provider Janee Reyes Unavailable [phone] Allergies No Known Allergies Results Component Value [...] current smoker Vital Signs Blood pressure systolic 128 mm Hg 06/24/19 25 Blood pressure diastolic 70 mm Hg 025 Heart Rate 80 /min 06/23/2024 Height 70 in 06/23/2024 Weight 198.6 lbs 06/23/2024 BMI 28.49 kg/m2 06/23/2024 Encounters Encounter Location Date Provider Diagnosis [facility] [address] [place] [id number] 06/23/2024 Janee Reyes Acute pain of left [...] * INGRIS GUTIERREZ LDOB:[birth year] (59 yo M)Acc No.[id number]:06/23/2024 Progress Notes Patient: INGRIS BLACKMAN Provider: CINDY Boyd :1965 A ge:58 Y S ex:Male Date:06/23/2024 Address:[address] [place], [place] [address], [id number] Pcp:Jay Marte Subjective: * Chief Complaints: * 1 . Check up. 2. Needs labs. * HPI: H PI: has been walking 2 miles daily as part of the recovery program; is hard to walk up stairs; currently in recovery for pain pills and on parol for sadi marino; Living at the [facility] in [facility]. Patient is here today for a check up and is due for labs. Pt sts that he does need some refills as well. E NT/respiratory: COPD P t sts that he is being treated by a warehouse order picker at [facility], he sees Dr. Fuentes phone number is [phone] and fax is [phone].? R heumatology: c/o joint pain P t [...] erectile disorder - N52.9 5 . B NM 28.0-28.9,adult - Z68.28 Plan: * Treatment: Notes: encouraged pt to continue with the walking program??2.?Acute right hip pain?Imaging: X ray : Hip, right (Performed Date - 06/23/2024)?degemerative joint disease of both hips* Joann Hollis 06/23/2024 12 :57:14 PM > order Janee King 06/25/2024 03:54:07 PM >no answer when Janee Becker 07/02/2024 03:27:58 PM >no answer when Janee Becker 07/03/2024 02:55:22 PM >no answer when Nandini Beckerharine 07/23/2024 06:05:41 PM EDT > no answer when telephoned ; no way to leave Nandini Tinajeroharine 09/21/2024 08:04:45 AM EDT ># not reachable; [...] * Images: Billing Information: * Visit Code: 02379 Office Visit, Est Pt., Level 4. * Procedure Codes: 3074F SYST BP LT 130 MM HG. 3078F DIAST BP < 80 MM HG. * Electronic signature of Yuly Reyes APRN on 2024 at 09:46 AM EDT Sign off status: Pending * Provider: CINDY Boyd Date: 0 06/23/2024 Generated for Josh daniels/Rodrigo/George on: 1 09:46 AM EDT History and Physical Notes * HPI (History of Present Illness) Category Sub-Category Detail Notes Category Not es ENT/respiratory COPD Pt sts that he i s being treated by a warehouse order picker at [facility], he sees Dr. Fuentes phone number is [phone] and fax is [phone] Rheumatology joint pain Pt sts that he [...]
[2024-11-20 08:12] VITALS: BMI 30.9
--- OUTSIDE RECORDS SUMMARY | 2024-11-20 09:46 | XMS_ITS | Patient Health Record ---
Author Organization [facility] Address [address] [facility] [address] [place] [id number] Care Team Providers Care Pharmaceutical Process Engineer Name Role Phone EstuardoJay Primary Care Provider [phone] Janee Reyes Unavailable [phone] Karly Linares Unavailable [phone] Allergies No Known Allergies Results Component Value [...] 5.6 Performing Lab: Notes/Report: Test performed by [facility] [address] , [address], [place] [address] Cortez Lao MD, [employer] CLIA: [id number] Sodium 139 135-145 mmol/L Potassium 5.6 3.5-5.3 [...] 100 Performing Lab: Notes/Report: Test performed by [employer] [facility], [address] , [address], [place] [address] Cortez Lao MD, [employer] CLIA: [id number] Cholesterol 144 <200 mg/dL Triglycerides 100 <150 [...] Interpretation:0.56 Performing Lab: Notes/Report: Test performed by [facility] [employer] [address] [place] [address] , [address], [place] [address] Cortez Lao MD, [employer] CLIA: [id number] PSA 0.56 <4.00 ng/mL Please note this is an ultrasensitive PSA assay with a lower limit of detection of 0.014 ng/mL. This test is performed by the [employer] ECLIA methodology. Values obtained with different assay methods or kits cannot be directly compared. P-TSH Reviewed date:01/10/2024 12:27:52 PM Interpretation:5.88 Performing Lab: Notes/Report: Test performed by [facility] [address] [place] [address] , [address], [place] [address] Cortez Lao MD, [employer] CLIA: [id number] TSH 5.88 0.43-5.25 mU/L X ray : [...] Phipps 01/06/2024 10:38:37 AM > faxed to [facility] PT, Tere Phipps 01/22/2024 9:38:28 AM [...] Problem COPD - Chronic obstructive pulmonary disease (03388334) COPD (chronic obstructive pulmonary disease) (J44.9) Active confirmed Problem Localized, primary osteoarthritis of the hand (554704153) Primary osteoarthritis, right hand (M19.041) Active confirmed Problem Male erectile disorder (711066079) Male erectile disorder (N52.9) Active confirmed Problem History of polyp of colon (situation) (143373240) History of colon polyps (Z86.010) Active confirmed Problem COPD - Chronic obstructive pulmonary disease (02608746) Chronic obstructive pulmonary disease, unspecified COPD type (J44.9) Active confirmed Problem Erectile dysfunction (disorder) (788782508) ED (erectile dysfunction) (N52.9) Active confirmed Problem Localized, primary osteoarthritis of the hand (914133448) Primary osteoarthritis of left hand (M19.042) Active confirmed Problem Tobacco use (193389689) Tobacco use disorder (F17.200) Active confirmed Vital Signs Heart Rate 80 /min 06/23/2024 Blood pressure diastolic 70 mm Hg 06/23/2024 Height 70 in 06/23/2024 Blood pressure systolic 128 mm Hg 06/23/2024 Weight 198.6 lbs 06/23/2024 BMI 28.49 kg/m2 06/23/2024 Encounters Encounter Location Date Provider Diagnosis [facility] [address] [place] [id number] 12/17/2023 Janee Reyes Shoulder pain, acute M25.519 and ED (erectile dysfunction) N52.9 [facility] [address] [place] [id number] 01/06/2024 Janee Reyes Chronic obstructive pulmonary disease, unspecified COPD type J44.9 ; Tobacco use disorder F17.200 ; Screening PSA (prostate specific antigen) Z12.5 ; Lipid screening Z13.220 ; Right shoulder pain M25.511 ; Thyroid disorder screen Z13.29 ; Diabetes mellitus screening Z13.1 and Encounter for immunization Z23 [facility] [address] [place] [id number] 06/23/2024 Janee Reyes Acute pain of left h ip M25.552 ; Acute right hip pain M25.551 ; Continuous tobacco abuse Z72.0 ; Male erectile disorder N52.9 and BMI 28.0-28.9,adult Z68.28 [facility] [address] [place], [place] [id number] 01/06/2024 Jay Marte [facility] [facility] [address] [place], [place] [id number] 01/10/2024 Janee Reyes [facility] [address] [place], [place] [id number] 01/22/2024 Janee Reyes Right shoulder pain M25.511 [facility] [address] [facility] [address] [place], [place] [id number] 06/01/2024 Jay Marte [facility] [address] [place] [id number] 09/28/2024 Jay Marte [facility] [address] [facility] [address] [place] [id number] 09/28/2024 Janee Reyes Assessments Encounter Date Diagnosis [...] Coverage Start Date Coverage End Date AETNA [facility] [address] [place], [place] [phone] [id number] INGRIS KARIMI Self - patient is the insured Medications Administered Medication Instructions Date of Administration Dosage Notes Dexamethasone 01/23/2021 1 mL Dexamethasone 12/17/2023 1 mL Medical (General) History Medical History History ICD Code COPD Tobacco abuse History of adenomatous colon polyps -fol lowed by Dr. Patterson Surgical History Surgery Date(Month/Year) left knee surgery Colonoscopy Hospitalization History Reason Date(Month/Year) H-SOA 01/04 [facility]-Pneumonia 05/08/18
--- OUTSIDE RECORDS SUMMARY | 2024-11-20 09:47 | XMS_ITS | Patient Health Record ---
Author Organization [facility] Address [address] [place] [address] Care Team Providers Care Target Trimmer Name Role Phone Batsheva Silveira Primary Care [...] 12 Interpretation Positive Section Notes: Some college education Some college education. Service. [...] Status Risk Notes Problem Chronic hepatitis C (931749755) Chronic viral hepatitis C (B18.2) Active confirmed Problem Alcohol dependence (34101818) Uncomplicated alcohol dependence (F10.20) Active confirmed Problem Substance use disorder (0161227298) Substance use disorder (F19.90) Active confirmed Problem Alcohol use disorder (9405200573) Alcohol use disorder (F10.90) Active confirmed Plan Of Treatment No Information Insurance Providers Payer Name Payer Address Payer Phone Subscriber Number Group Number Insured Name Patient Relationship to Insured Coverage Start Date Coverage End Date AETNA [facility] [address] [place], [place] [id number] Shreya Jose wolf Self - patient is the insured 3 Medical (General) History Medical History History ICD Code copd benign prostatic hyperplasia (BPH) Alcohol use disorder F10.90 Chronic viral hepatitis C B18.2 Substance use disorder F19.90 Insomnia, unspecified G47.00 Surgical History Surgery Date(Month/Year) left knee arthroscopy 2002 Right testicular mass 2021
--- OUTSIDE RECORDS SUMMARY | 2024-11-20 09:47 | XMS_ITS | Encounter Summary ---
Author Organization [facility] Address [address] [place] [address] Care Team Providers Care Professor Of Musicology Name Role Phone Pcp, No Primary Care Provider Unavailabl e Encounter Details Date Type Department Care Team (Late st Contact Info) Description 07/24/2024 Results Follow-Up Robe Masterson [facility] Endocrinology [address] [place] [address] Karina Doan MD [address] [place] [address] Social History Tobacco Use Types Packs/Day Years Used Date Smoking Tobacco: Some Days Cigarettes Smokeless Tobacco: Current Sex and Gender Information Value Date Recorded Sex Assigned at Not on file Legal Sex Male 8:53 PM EDT Gender Identity Not on file Sexual Orientation Not on file documented as of this encounter Plan of Treatment Not on file documented as of this encounter Visit Diagnoses Not on filedocumented in this encounter Additional Health Concerns Infection Onset Date Last Indicated Resolved Time Rhinovirus 07/22/2024 07/22/2024 Assessment Noted Time A Body Mass Index follow-up plan has been documented for the patient 07/29/2024 6:22 PM EDT documented as of this encounter Care Teams Professor Of Musicology Relationship Specialty Start Date End Date Pcp, [place] [address] PCP - General Family Medicine 07/21/24 documented as of this encounter
--- OUTSIDE RECORDS SUMMARY | 2024-11-20 09:47 | XMS_ITS | Encounter Summary ---
Author Organization [facility] Address [address] [place] [address] Care Team Providers Care Blast Furnace A[employer]ili[employer] Supervisor Name Role Phone Pcp, No Primary Care Provider Unavailabl e Reason for Referral * Consultation (Routine) - Closed Specialty Diagnoses / Procedures Referred By Contlori t Referred To Contact Endocrinology Diagnoses Elevated TSH Damion Soler APRN [address] [place] [address] Phone: tel: fax: [facility] Endocrinology [address] [place] [phone] Phone: tel: fax: Referral ID Status Reason Start Date Expiration Date V isits Requested Visits Authorized [id number] Closed Specialty Services Required 06/01/2024 12/01/2025 1 1 Encounter Details Date Type Department Care Team ([facility] st Contact Info) Description 06/01/2024 Community [facility] Community Practice [address] [place] [address] Damion Soler APRN [address] [place] [address] Elevated TSH (Primary Dx) Social History Tobacco Use Types Packs/Day Years Used Date Smoking Tobacco: Never Assessed Sex and Gender Information Value Date Recorded Sex Assigned at Not on file Legal Sex Male 8:53 PM EDT Gender Identity Not on file Sexual Orientation Not on file documented as of this encounter Plan of Treatment Scheduled Referrals Name Type Priority Associated Diagnoses [...] documented as of this encounter Care Teams Bl[employer] Furnace Auxili[employer] Supervisor Relationship Specialty Start Date End Date Pcp, [place] [address] PCP - General Family Medicine 07/21/24 documented as of this encounter
--- OUTSIDE RECORDS SUMMARY | 2024-11-20 09:47 | XMS_ITS | Clinical Summary ---
Author Organization Healthcare Address [address] [place] [address] Care Team Providers Care Licensed Prosthetist Name Role Phone Pcp, No Primary Care [...] Description 09/01/2024 1:00 PM EDT Office Visit [facility] Pulmonary Rehab [address] [place] [address] Chronic obstructive pulmonary disease, unspecified COPD type (CMS/HCC) (Primary Dx) 09/01/2024 Travel 08/25/2024 1:00 PM EDT Office Visit [facility] [address] [place] [address] Chronic obstructive pulmonary disease, unspecified COPD type (CMS/HCC) (Primary Dx) 08/25/2024 Travel 08/20/2024 10:30 AM EDT Office Visit [facility] Pul[facility] Rehab [address] [place] [address] Stage 3 severe COPD by GOLD classification (CMS/HCC) (Primary Dx) 08/20/2024 Travel from Last 3 Months Social History [...] 08/25/2024 1:00 PM EDT Plan of Treatment Health Maintenance Due Date Last Done Comments [...] 2 - Risk 2-dose series) 02/07/2019 08/08/2018 [facility]-RSV Vaccine: 60+ Years or (1 - Risk 60-74 years 1-dose series) 2023 PRC-GEIVH-20 Vaccine (2 - season) 2024 10/15/2020 [facility]-Influenza Vaccine (#1) 2024 01/06/2024 [facility]-HIV Screening [...] Procedure Name Priority Date/Time Associated Diagnosis Comments ED HIV 1/2 ANTIBODY/ANTIGEN SCREEN WITH REFLEX TO HIV I/II DIFFERENTIATION STAT 07/22/2024 12:35 AM EDT from Last 3 Months or Most Recently Relevant to Health Maintenance Results * ED HIV 1/2 Antibody/Antigen Screen w/Reflex to HIV 1/2 Differentiation (07/22/2024 12:35 AM EDT) HIV 1 & 2 Antibody/Antigen Screen Non Reactive Non Reactive 07/22/2024 1:56 AM EDT [facility] Comment:Screening for HIV 1 & 2 antibodies, and P24 antigen is NONREACTIVE. No confirmatory testing is required. Blood Venous blood specimen / Unknown Venipuncture / Unknown 07/22/2024 12:35 AM EDT 07/22/2024 1:10 AM EDT us Vipin Bar MD LAB BLOOD ORDERABLES Final Re sult [facility] [address] [place] [address] from Last 3 Months or Most Recently Relevant to Health Maintenance Additional Health Concerns Infection Onset Date Last Indicated Rhinovirus 07/22/2024 07/22/2024 Insurance AETNA [facility] MEDICAID Care Teams Licensed Prosthetist Relationship Specialty Start Date End Date Pcp, Lottie [address] [place] [address] PCP - General Family Medicine 07/21/24
--- NOTE | 2024-11-20 09:48 | XR_ITS ---
FINAL REPORT TECHNIQUE: Chest PA & Lateral CLINICAL HISTORY: Pre op surgery- right hip inj scheduled for next Saturday. Hx of smoking. COMPARISON: 07/19/2021 FINDINGS: 2 views of the chest were performed. The heart size is normal. The mediastinum is within normal limits. There is no acute cardiopulmonary process. There are no pleural effusions. There is no pneumothorax. The bony thorax appears intact. IMPRESSION: No acute cardiopulmonary process. Reviewed, Interpreted and Dictated by Matti Young MD Transcribed by Alma Soto Authenticated and [facility]
--- NOTE | 2024-11-20 10:05 | ECG_ITS ---
APPROVED REPORT Exam: Resting ECG HR:92 bpm ECG Measurements Heart Rate 92 AXES NH 175 P 67 QRSd 81 QRS 73 QT 350 T 73 QTc 400 Conclusion SINUS RHYTHM NORMAL ECG UNCONFIRMED REPORT Electronically signed by : Edwin Osman MD 11/24/2024 17:05:22
[2024-11-20 10:28] LABS: Alanine Aminotransferase 21 U/L (12-78); Albumin Level 4.6 g/dl (3.5-5.0); Albumin/Globulin Ratio 1.5 (1.1-1.8); Alkaline Phosphatase 91 U/L (38-126); Anion Gap 14.1 mEq/L (5-15); Aspartate Amino Transferase 33 U/L (17-59); Bilirubin,Total 1.2 mg/dl (0.2-1.3); Blood Urea Nitrogen 22 mg/dl (9-20); Calcium 9.1 mg/dl (8.4-10.2); Carbon Dioxide 29 mmol/L (22.0-30.0); Chloride 101 mmol/L (98-107); Creatinine Clearance Estimated 117 mL/min (50-200); Creatinine,Serum 0.90 mg/dl (0.66-1.25); Estimated Glomerular Filt Rate 86 ml/min (>60); GFR (African American) 104 ML/MIN (>60); Globulin 3.0 g/dL (1.3-3.2); Glucose 143 mg/dl (74-100); Potassium 4.1 mmoL/L (3.5-5.1); Sodium 140 mmol/L (136-145); Total Protein,Serum 7.6 g/dl (6.3-8.2)
== END 2024-11-20 23:59 | disposition home or self-care (01) ==
LOC: PREOP 09:44
PROVIDERS: PCP Family Medicine; Visit Provider Orthopaedic Surgery
DX: Z01.810 Encounter for preprocedural cardiovascular examination (principal); Z01.811 Encounter for preprocedural respiratory examination; Z01.812 Encounter for preprocedural laboratory examination; Z87.891 Personal history of nicotine dependence
CPT/HCPCS: 71046; 80053; 93005

== ENCOUNTER 2024-11-24 06:03 | Day surgery (SDC) | payer OTHER, SELFPAY ==
[2024-11-20 11:02] VITALS: BMI 30.9
[2024-11-20 11:09] LABS: Hematocrit 45.8 % (42.0-52.0); Hemoglobin 15.2 g/dL (14.1-18.0); Immature Granulocytes % 0.5 %; Mean Corpuscular HGB Conc 33.2 g/dL (31.8-35.4); Mean Corpuscular Hemoglobin 32.6 pg (27.0-31.2); Mean Corpuscular Volume 98.3 fl (80-94); Nucleated Red Blood Cells % 0 %; Platelet Count 221 K/mm3 (142-424); Red Blood Count 4.66 M/mm3 (4.60-6.20); Red Cell Distribution Width-SD 44.5 fL; White Blood Count 6.3 K/mm3 (4.8-10.8)
[2024-11-24 06:16] VITALS: BP 124/72; PULSE 63; RESP 16; TEMP 36.2; O2SAT 94
[2024-11-24] MEDS: LACTATED RINGERS 1000ML 1,000 ML 100 ML IV (06:35)
[2024-11-24] MEDS: TRIAMCINOLONE ACET 40MG/ML VIAL 80 MG (07:31)
[2024-11-24] MEDS: LIDOCAINE 1% 10ML MDV 10 ML (07:31)
[2024-11-24 07:40] VITALS: BP 114/71; PULSE 64; RESP 16; TEMP 36.1; O2SAT 94
--- NOTE | 2024-11-24 07:41 | XR_ITS ---
FINAL REPORT CLINICAL HISTORY: IN OR RIGHT HIP INJECTION 0.06 fluoro time COMPARISON: None FINDINGS: FLUOROSCOPY LESS THAN 1 HOUR HISTORY: Fluoroscopic guidance for right hip injection FINDINGS: Fluoroscopic guidance was provided for right hip injection. A single spot film was obtained. 0.06 minutes of fluoroscopy time were used. The dosage was calculated at 2.06 mGy. IMPRESSION: As above. Reviewed, Interpreted and Dictated by María Caballero MD Transcribed by Jaycee Bailey Authenticated and [facility]
--- NOTE | 2024-11-24 07:54 | EXP.OP.NOTE ---
Date of procedure: 11/24/24 Pre-op Diagnosis:: Right hip osteoarthritis Post-op Diagnosis:: Same Procedure performed:: Right hip injection with arthrogram, x-ray guidance for needle placement. Surgeon:: Arun Rowland DO CONTROLS PROJECT ENGINEER:: Maurice Phipps Anesthesia: MAC Estimated blood loss (mL): 0 Operative findings:: Osteoarthritis right hip Operative note:: Patient is identified preoperatively. Right hip marked with yes my initials. Transferred to operative suite placed upon the radiolucent bed. Right hip was prepped and draped normal sterile fashion. Once prepped and draped final operative timeout performed to identify proper patient procedure and extremity. Everyone involved in the case agreed. Is no counter indications beginning. X-ray was brought into identify the hip capsule. 18-gauge spinal needle was directed in the proper trajectory into the hip capsule. This was viewed directly on the C arm. Once within the capsule arthrogram was performed the injection of Isovue to confirm needle placement within the hip capsule. Once confirmed hip was injected with 2 cc (80 mg Kenalog) and 3 cc 1% lidocaine plain. Needle removed Band-Aid placed patient tolerated procedure well without complication taken to stepdown in stable condition once awakened from sedation. Condition: stable Disposition: PACU Complications:: None apparent
[2024-11-24 07:55] VITALS: BP 111/79; PULSE 58; RESP 18; O2SAT 98
[2024-11-24 08:10] VITALS: BP 117/77; PULSE 55; RESP 18; O2SAT 99
== END 2024-11-24 08:16 | disposition home or self-care (01) ==
PROVIDERS: PCP Family Medicine; Visit Provider Orthopaedic Surgery
PROC: 3E0U3GC Introduction of Other Therapeutic Substance into Joints, Percutaneous Approach (ICD-10-PCS; CPT 20610; principal; 2024-11-24 07:30)
DX: M16.11 Unilateral primary osteoarthritis, right hip (principal); J44.9 Chronic obstructive pulmonary disease, unspecified; F17.210 Nicotine dependence, cigarettes, uncomplicated; Z79.51 Long term (current) use of inhaled steroids; Z79.899 Other long term (current) drug therapy
CPT/HCPCS: 20610; 73502; 76000; 85025; J2003; J2704; J3301; J7120